=== PATIENT | female | born 1955 | race Two or more races ===

== ENCOUNTER 2020-08-28 12:12 | Outpatient (REF) | payer MEDICARE, MEDICAID, SELFPAY ==
--- NOTE | 2020-08-28 | XR_ITS ---
EXAMINATION: XR SHOULDER, LEFT CLINICAL INFORMATION: Left shoulder pain COMPARISON: None TECHNIQUE: 4 views of the left shoulder FINDINGS: Normal alignment with no fracture. Mild glenohumeral and acromioclavicular osteoarthritis. No suspicious bone lesion or soft tissue calcification. IMPRESSION: Mild acromioclavicular and glenohumeral osteoarthritis.
== END 2020-08-28 12:13 | disposition home or self-care (01) ==
LOC: HO.XRAY 12:12
PROVIDERS: PCP Internal Medicine Geriatric Medicine; Visit Provider Emergency Medicine
DX: M25.512 Pain in left shoulder (principal)
CPT/HCPCS: 73030

== ENCOUNTER → 2020-09-02 14:56 | Outpatient (BNVA) | payer MEDICARE, MEDICAID, SELFPAY | PROVIDERS: PCP Internal Medicine Geriatric Medicine; Visit Provider Surgery Vascular Surgery | DX: I87.2 Venous insufficiency (chronic) (peripheral) (principal); I83.11 Varicose veins of right lower extremity with inflammation | CPT/HCPCS: 99213 ==

== ENCOUNTER → 2020-09-04 12:40 | Outpatient (BNVA) | payer MEDICARE, MEDICAID, SELFPAY | PROVIDERS: PCP Internal Medicine Geriatric Medicine; Referring Provider Internal Medicine Geriatric Medicine; Visit Provider Physician Assistant | DX: E66.9 Obesity, unspecified (principal); Z68.30 Body mass index [BMI] 30.0-30.9, adult; K90.49 Malabsorption due to intolerance, not elsewhere classified; Z98.84 Bariatric surgery status | CPT/HCPCS: 99214 ==

== ENCOUNTER → 2020-09-18 12:00 | Outpatient (BNVA) | payer MEDICARE, MEDICAID, SELFPAY | PROVIDERS: PCP Internal Medicine Geriatric Medicine; Referring Provider Internal Medicine Geriatric Medicine; Visit Provider Nurse Practitioner | DX: K21.9 Gastro-esophageal reflux disease without esophagitis (principal); R13.10 Dysphagia, unspecified; K59.04 Chronic idiopathic constipation; Z98.84 Bariatric surgery status; Z90.49 Acquired absence of other specified parts of digestive tract | CPT/HCPCS: 99214 ==

== ENCOUNTER 2020-09-23 12:39 | Outpatient (REF) | payer MEDICARE, MEDICAID, SELFPAY ==
--- NOTE | 2020-09-23 12:40 | XR_ITS ---
EXAMINATION: XR HIP, LEFT CLINICAL INFORMATION: Pain in left hip. COMPARISON: None TECHNIQUE: Two views of the left hip. FINDINGS: AP PELVIS: There is a normal symmetry of both hip joints and SI joints. There is hardware overlying both iliac crests. There is lower spine fusion with posterior hardware. LEFT HIP: The left hip joint space is maintained. There is no visible acute fracture, dislocation or subluxation seen. The soft tissues are normal.. XR/XR hip LT w PEL1V IMPRESSION: Unremarkable left hip exam. Unremarkable AP pelvis.
[2020-09-23 15:28] LABS: MANUAL DIFF FLAG NO
[2020-09-23 15:41] LABS: Basophils Percent Auto 0.5 % (0-2); Eosinophils Absolute Auto 0.1 X10*3/uL (0.0-0.4); Eosinophils Percent Auto 1.2 % (0-4); Hematocrit 39.8 % (37-47); Hemoglobin 12.5 g/dl (12.0-16.0); Imm Gran Abs Auto 0.01 X10*3/uL (0.00-0.03); Imm Gran Pct Auto 0.2 % (0.0-0.4); Lymphocytes Absolute Auto 1.6 X10*3/uL (1.2-4.9); Mean Corpuscular HGB Conc 31.4 g/dl (31.0-35.0); Mean Corpuscular Hemoglobin 26.9 pg (27.0-33.0); Mean Corpuscular Volume 85.6 fL (80-98); Mean Platelet Volume 11.8 fL (9.4-12.3); Monocytes Absolute Auto 0.4 X10*3/uL (0.1-1.2); Monocytes Percent Auto 10.7 % (2-11); Neutrophils Absolute Auto 1.9 X10*3/uL (2.0-8.3); Neutrophils Percent Auto 47.4 % (45-73); Platelet Count 202 X10*3/uL (160-400); Red Blood Count 4.65 X10*6/uL (4.20-5.50); Red Cell Distribution Width 13.2 % (11.0-16.0); White Blood Count 4.1 X10*3/uL (4.8-10.8)
[2020-09-23 16:03] LABS: Estimated Average Glucose 123 mg/dL; Hemoglobin A1c % 5.9 %
[2020-09-23 16:14] LABS: Alanine Aminotransferase 24 U/L (0-31); Albumin Level 4.1 g/dL (3.5-5.0); Alkaline Phosphatase 74 U/L (39-117); Anion Gap 12 (12-20); Aspartate Amino Transferase 20 U/L (5-31); Bilirubin Total 0.4 mg/dL (0.0-1.0); Blood Urea Nitrogen 9 mg/dL (9-16); C Reactive Protein 0.05 mg/dL (< or = 0.50); Calcium 8.5 mg/dL (8.4-10.2); Carbon Dioxide 27 mmol/L (22-29); Chloride 106 mmol/L (96-108); Cholesterol 166 mg/dL; Estimated Glomerular Filt Rate > 60; Glucose Fasting 79 mg/dL (60-99); HDL Cholesterol 50 mg/dL; Iron 133 mcg/dL (30-160); LDL Cholesterol Calculated 94 mg/dl; Percent Iron Saturation 46 % (15-50); Potassium 4.4 mmol/l (3.3-5.1); Sodium 141 mmol/L (135-145); Total Iron Binding Capacity 287 mcg/dL (228-428); Total Protein 6.7 g/dL (6.5-8.0); Triglycerides 112 mg/dL; Unsaturated Iron Binding 154 ug/dL
[2020-09-23 16:34] LABS: Ferritin 61 ng/mL (10-250); TSH reflex Free T4 1.77 mIU/mL (0.32-4.0)
[2020-09-23 16:45] LABS: Folate 4.2 ng/mL (> or = 4.0); Vitamin B12 263 pg/mL (200-900)
[2020-09-27 18:06] LABS: Zinc 58 mcg/dL (60-130)
[2020-09-28 13:12] LABS: Vitamin B1 10 nmol/L (8-30)
[2020-09-29 14:06] LABS: Vitamin A 29 mcg/dL (38-98)
[2020-09-30 18:42] LABS: Parathyroid Hormone Related Pr 10 pg/mL (14-27)
== END 2020-09-23 12:40 | disposition home or self-care (01) ==
LOC: HO.XRAY 12:39
PROVIDERS: Absent Provider Physician Assistant; PCP Internal Medicine Geriatric Medicine; Visit Provider Orthopaedic Surgery
DX: M25.552 Pain in left hip (principal); K90.49 Malabsorption due to intolerance, not elsewhere classified
CPT/HCPCS: 36415; 73502; 80053; 80061; 82306; 82607; 82728; 82746; 83036; 83519; 83525; 83540; 84425; 84443; 84590; 84630; 85025; 86140

== ENCOUNTER → 2020-10-16 14:21 | Outpatient (BNVA) | payer MEDICARE, MEDICAID, SELFPAY | PROVIDERS: PCP Internal Medicine Geriatric Medicine; Visit Provider Nurse Practitioner | DX: K21.9 Gastro-esophageal reflux disease without esophagitis (principal); R13.10 Dysphagia, unspecified; K58.1 Irritable bowel syndrome with constipation; K59.04 Chronic idiopathic constipation; Z87.19 Personal history of other diseases of the digestive system; Z90.49 Acquired absence of other specified parts of digestive tract | CPT/HCPCS: Q3014 ==

== ENCOUNTER → 2020-10-22 08:40 | Outpatient (BNVA) | payer MEDICARE, MEDICAID, SELFPAY | PROVIDERS: PCP Internal Medicine Geriatric Medicine; Visit Provider Dietitian, Registered | DX: Z76.89 Persons encountering health services in other specified circumstances (principal) ==

== ENCOUNTER 2020-10-22 15:00 | Outpatient (RCR) | payer MEDICARE, MEDICAID, SELFPAY ==
--- NOTE | 2020-10-09 16:01 | MHC.PT.EP ---
[facility] [place] Office [place] Office [place] Office [address] Beau You [address] [phone] F: [phone] F: [phone] F: [phone] F: [phone] Physical Therapy Plan of Care Date of Evaluation: 10/09/20 Date of Surgery: N/A Diagnosis: IMPINGEMENT SYNDROME OF LEFT SHOULDER Assessment: TRIPP PRESENTS WITH INCREASING SHOULDER PAIN OF ONE MONTH DURATION. UPON EXAM, IMPAIRMENTS INCLUDE DECREASED CERVICAL AND SHOULDER STRENGTH, ALTERED SCAPULOTHORACIC MECHANICS, DECREASED CERVICAL AND SHOULDER ROM, INCREASED TISSUE TENSION ALONG UPPER AND MID TRAPS, CERVICAL PARAVERTEBRALS, SCM AND SCALENES, ALTERED POSTURE AND POSITIONING AND INCREASED PAIN THROUGHOUT NECK, SHOULDER AND UPPER BACK STRENGTH. FUNCTIONAL LIMITATIONS INCLUDE DECREASED ABILITY TO PERFORM LIFTING, PUSHING, PULLING AND REACHING, DECREASED ABILITY TO PERFORM HOMEMAKING AND SELF CARE TASKS, DECREASED PARTICPATION IN FITNESS AND RECREATIONAL TASKS AND DISRUPTED SLEEP. CO-MORBIDIES INCLUDE NECK AND LUMBAR SURGERIES (CDF/LDF?), BLADDER SURGERY, BARIATRIC SURGERY WITH RESULTANT GI DYSFUNCTION. SHE LIVES ALONE AND DOES NOT HAVE ASSIST FOR ADLs AND HOMEMAKING TASKS. SHE IS A GOOD CANDIDATE FOR SKILLED THERAPY TO ADDRESS IMPAIRMENTS AND IMPROVE FUNCTIONAL LEVELS. Frequency and Duration: The patient will be seen 2 X WEEK FOR 6 WEEKS Short Term Goals: FULL CERVICAL ROM AND ABLE TO TOLERATE MOD RESISTANCE IN NEUTRAL IN 3 WEEKS TO DEMONSTRATE COMPLIANCE WITH HEP AND PT RECOMMENDATIONS IN 3 WEEKS TO ACTIVELY ELEVATE SHOULDER TO AT MINIMUM 90 DEGREES IN 3 WEEKS Topography Technician Goals: TO TOLERATE SHOULDER ELEVATION WITH PAIN NO GREATER THAN 3/10 WHILE PLACING LIGHT OBJECT ON SHELF AT SHOULDER HEIGHT TO REPORT WASHING AND BRUSHING HAIR WITHOUT RESTRICTION AND PAIN NO GREATER THAN 3/10 IN 6 WEEKS TO REPORT THE ABILITY TO SLEEP WITHOUT DISRUPTION FROM SHOULDER PAIN IN 6 WEEKS SPADI SCORE OF LESS THAN 60% DISABILITY IN 6 WEEKS Treatment Plan: Modalities to reduce pain, spasms and effusion. Manual therapy to restore motion and function. Therapeutic exercise to improve strength and flexibility. Neuromuscular re-education for posture and balance. Therapeutic activities to return to functional activities of daily living. Please sign and return to therapist. Thank you for your referral.
--- NOTE | 2020-12-09 14:39 | MHC.PT.DC ---
[facility] [place] Office [place] Office [place] Office [address] [phone] F: [phone] F: [phone] F: [phone] F: [phone] Physical Therapy Discharge Report Diagnosis: IMPINGEMENT SYNDROME OF LEFT SHOULDER Date of Surgery: N/A Date of Evaluation: 10/09/20 Date of Discharge: 10/22/20 Treatments to Date: 2 Cancellations to Date: 4 No Shows to Date: 2 Discharge Status: Patient Elected to Stop Discharge Summary: TRIPP ATTENDED 2 PT VISITS, CANCELLED 4 AND NO SHOWED FOR 2. SHE HAS NOT BEEN SEEN IN PT FOR 2 MONTHS AND IS BEING DISCHARGED AT THIS TIME. Electronically signed by: ISATU MORALES PT, DPT Please sign and return to therapist. Thank you for your referral.
== END 2020-12-09 14:58 | disposition other institution (70) ==
LOC: HO.PT 15:00
PROVIDERS: PCP Internal Medicine Geriatric Medicine; Visit Provider Orthopaedic Surgery
DX: M75.42 Impingement syndrome of left shoulder (principal)
CPT/HCPCS: 97110; 97112; 97163; 97535

== ENCOUNTER → 2020-10-30 10:04 | Outpatient (BNVA) | payer MEDICARE, MEDICAID, SELFPAY | PROVIDERS: PCP Internal Medicine Geriatric Medicine; Referring Provider Internal Medicine Geriatric Medicine; Visit Provider Internal Medicine Pulmonary Disease | DX: J45.40 Moderate persistent asthma, uncomplicated (principal); Z91.09 Other allergy status, other than to drugs and biological substances | CPT/HCPCS: 99212 ==

== ENCOUNTER → 2020-11-06 13:50 | Outpatient (BNVA) | payer MEDICARE, MEDICAID, SELFPAY | PROVIDERS: PCP Internal Medicine Geriatric Medicine; Referring Provider Internal Medicine Geriatric Medicine; Visit Provider Nurse Practitioner | DX: R13.10 Dysphagia, unspecified (principal); K59.04 Chronic idiopathic constipation; K21.9 Gastro-esophageal reflux disease without esophagitis | CPT/HCPCS: Q3014 ==

== ENCOUNTER → 2020-12-12 13:00 | Outpatient (BNV) | payer MEDICARE, OTHER, MEDICAID, SELFPAY | PROVIDERS: PCP Internal Medicine Geriatric Medicine; Visit Provider Internal Medicine | DX: D64.9 Anemia, unspecified (principal) | CPT/HCPCS: 99212; 99213; 99214 ==

== ENCOUNTER 2021-04-23 14:27 | Outpatient (REF) | payer MEDICARE, MEDICAID, SELFPAY ==
--- NOTE | ~2021-04-23 | MM_ITS ---
EXAMINATION: MM SCREENING DIGITAL BREAST TOMOSYNTHESIS, BILATERAL CLINICAL INFORMATION: Screening. Asymptomatic. The lifetime risk of breast cancer based on the Tyrer-Cuzick Model is 3.0%. COMPARISON: Mammography: February 12, 2020 and studies dating back to February 11, 2006 TECHNIQUE: Digital breast tomosynthesis is performed in both the craniocaudal and mediolateral oblique views along with computer-aided detection (CAD). Synthesized 2D images are generated from the tomosynthesis. FINDINGS: The breasts are heterogeneously dense, which may obscure small masses (ACR BI-RADS breast composition Category c). There are no significant masses, abnormal calcifications, or other abnormalities. MM/MM tomosynthesis screening BI IMPRESSION: There are no significant changes from prior study. ASSESSMENT: BI-RADS 1: Negative RECOMMENDATION: Routine annual mammography screening. This patient's information was entered into a reminder system with a target due date for their next mammogram.
== END 2021-04-23 14:28 | disposition home or self-care (01) ==
LOC: HO.MAMMO 14:27
PROVIDERS: Visit Provider Internal Medicine Geriatric Medicine
DX: Z12.31 Encounter for screening mammogram for malignant neoplasm of breast (principal)
CPT/HCPCS: 77063; 77067

== ENCOUNTER → 2021-08-21 09:54 | Outpatient (BNVA) | payer MEDICARE, MEDICAID, SELFPAY | PROVIDERS: PCP Internal Medicine Geriatric Medicine; Visit Provider Internal Medicine Pulmonary Disease | DX: Z91.09 Other allergy status, other than to drugs and biological substances (principal); J45.40 Moderate persistent asthma, uncomplicated | CPT/HCPCS: 99212 ==

== ENCOUNTER → 2021-09-16 09:22 | Outpatient (BNVA) | payer MEDICARE, MEDICAID, SELFPAY | PROVIDERS: PCP Internal Medicine Geriatric Medicine; Visit Provider Internal Medicine Pulmonary Disease ==

== ENCOUNTER 2022-02-22 12:10 | Day surgery (SDC) | payer MEDICARE, MEDICAID, SELFPAY ==
--- NOTE | 2022-02-18 15:11 | HO.ANESPROP2 ---
Documented by User: Courtney Youngblood NP 02/18/22 15:12 HPI - Anesthesia Eval Consult details Narrative: 66yo F for Upper Endoscopy with Balloon Dilitation PMFSH Active Problems Active Problems: All Active Problems (Updated 12/12/20 @ 14:14 by Renee Boyd MD) Anemia (Chronic) Environmental allergies (Acute) Moderate persistent asthma (Acute) Rotator cuff impingement syndrome of left shoulder (Acute) Trochanteric bursitis, left hip (Acute) Dysphagia (Acute) Chronic idiopathic constipation (Acute) GERD (gastroesophageal reflux disease) (Acute) Varicose veins of right lower extremity with inflammation (Acute) Obesity (Acute) Depression (Acute) Anxiety (Acute) IBS (irritable bowel syndrome) (Acute) Past Medical History Medical History Anemia Anxiety Depression Dysphagia Environmental allergies GERD (gastroesophageal reflux disease) Herniated disc IBS (irritable bowel syndrome) LUQ abdominal tenderness Malabsorption due to intolerance, not elsewhere classified Moderate persistent asthma Family History Family History Father Alcohol abuse Cancer Diabetes Mother Colon cancer Liver cancer Diabetes Brother Cancer Surgical History Surgical History H/O colonoscopy H/O laminectomy H/O neck surgery History of back surgery History of bladder surgery History of bunionectomy History of partial hysterectomy History of Rebecca-en-Y gastric bypass Hx laparoscopic cholecystectomy Hx of hammer toe correction Hx of hernia repair S/P rotator cuff repair Social History Social History Household Members Other:: grandchildren and daughter Alcohol intake: current Alcohol intake frequency: does not drink Patient Tobacco Use Status: Former Tobacco user Quit Date: 45 YEARS AGO Are you DNR?: No Advance Directives: No Advance Directives Information Provided: Yes Current occupational status: retired Current occupation: [employer] Meds Allergies Allergy/AdvReac Type Severity Reaction Status Date / Time vancomycin [VANCOMYCIN] Allergy Intermediate FACIAL Verified 02/22/22 12:46 FLUSHING/ITCHING trazodone [TRAZODONE] Allergy Unknown PER H&P Verified 02/22/22 12:46 Home Medications Medication Instructions Recorded Confirmed Last Taken Type bisacodyl 5 mg tablet,delayed 10 mg PO BID PRN 08/28/20 12/14/21 Unknown History release bupropion HCl 300 mg 24 hr tablet, 300 mg PO QAM 08/28/20 12/14/21 Unknown History extended release calcium carbonate 600 mg-vitamin 1 tab PO DAILY 08/28/20 12/14/21 Unknown History D3 20 mcg (800 unit) tablet clonazepam 1 mg tablet 1 mg PO BID 08/28/20 12/14/21 Unknown History levothyroxine 25 mcg tablet 25 mcg PO DAILY 08/28/20 12/14/21 Unknown History melatonin 5 mg tablet 5 mg PO BEDTIME 08/28/20 12/14/21 Unknown History metoclopramide HCl 5 mg tablet 5 mg PO DAILY 08/28/20 12/14/21 Unknown History mirtazapine 30 mg tablet 30 mg PO BEDTIME 08/28/20 12/14/21 Unknown History sennosides 8.6 mg tablet 17.2 mg PO BEDTIME PRN 08/28/20 12/14/21 Unknown History simethicone 180 mg capsule 180 mg PO QID PRN 08/28/20 12/14/21 Unknown History tramadol 50 mg tablet 50 mg PO TID PRN 08/28/20 12/14/21 Unknown History vitamin A 10,000 unit capsule 1 cap PO DAILY 08/28/20 12/14/21 Unknown History gabapentin 800 mg tablet 800 mg PO TID PRN 09/02/20 12/14/21 Unknown History vitamin [id number] B1 1,000 1 ml IM Q4W 09/04/20 12/14/21 Unknown History mcg-100 mg/mL injection solution Exam Exam Date and Time: February 18, 2022 1511 Pertinent Lab Results Pertinent Lab Results: Laboratory Tests 12/14/21 13:28 WBC 4.3 L Hgb 12.4 Hct 39.3 Plt Count 173 Assessment and Plan Assessment Anesthesia Assessment: Chart Reviewed Documented by User: Liss Morfin MD 02/22/22 13:59 PMFSH Past Medical History Medical History Anemia Anxiety Depression Dysphagia Environmental allergies GERD (gastroesophageal reflux disease) Herniated disc IBS (irritable bowel syndrome) LUQ abdominal tenderness Malabsorption due to intolerance, not elsewhere classified Moderate persistent asthma Family History Family History Father Alcohol abuse Cancer Diabetes Mother Colon cancer Liver cancer Diabetes Brother Cancer Family history of problems with anesthesia: No Surgical History Surgical History H/O colonoscopy H/O laminectomy H/O neck surgery History of back surgery History of bladder surgery History of bunionectomy History of partial hysterectomy History of Rebecca-en-Y gastric bypass Hx laparoscopic cholecystectomy Hx of hammer toe correction Hx of hernia repair S/P rotator cuff repair History of Problems with Anesthesia: No Social History Social History Household Members Other:: grandchildren and daughter Alcohol intake: current Alcohol intake frequency: does not drink Patient Tobacco Use Status: Former Tobacco user Quit Date: 45 YEARS AGO Are you DNR?: No Advance Directives: No Advance Directives Information Provided: Yes Current occupational status: retired Current occupation: [employer] Meds Allergies Allergy/AdvReac Type Severity Reaction Status Date / Time vancomycin [VANCOMYCIN] Allergy Intermediate FACIAL Verified 02/22/22 12:46 FLUSHING/ITCHING trazodone [TRAZODONE] Allergy Unknown PER H&P Verified 02/22/22 12:46 Home Medications Medication Instructions Recorded Confirmed Last Taken Type bisacodyl 5 mg tablet,delayed 10 mg PO BID PRN 08/28/20 12/14/21 Unknown History release bupropion HCl 300 mg 24 hr tablet, 300 mg PO QAM 08/28/20 12/14/21 Unknown History extended release calcium carbonate 600 mg-vitamin 1 tab PO DAILY 08/28/20 12/14/21 Unknown History D3 20 mcg (800 unit) tablet clonazepam 1 mg tablet 1 mg PO BID 08/28/20 12/14/21 Unknown History levothyroxine 25 mcg tablet 25 mcg PO DAILY 08/28/20 12/14/21 Unknown History melatonin 5 mg tablet 5 mg PO BEDTIME 08/28/20 12/14/21 Unknown History metoclopramide HCl 5 mg tablet 5 mg PO DAILY 08/28/20 12/14/21 Unknown History mirtazapine 30 mg tablet 30 mg PO BEDTIME 08/28/20 12/14/21 Unknown History sennosides 8.6 mg tablet 17.2 mg PO BEDTIME PRN 08/28/20 12/14/21 Unknown History simethicone 180 mg capsule 180 mg PO QID PRN 08/28/20 12/14/21 Unknown History tramadol 50 mg tablet 50 mg PO TID PRN 08/28/20 12/14/21 Unknown History vitamin A 10,000 unit capsule 1 cap PO DAILY 08/28/20 12/14/21 Unknown History gabapentin 800 mg tablet 800 mg PO TID PRN 09/02/20 12/14/21 Unknown History vitamin [id number] B1 1,000 1 ml IM Q4W 09/04/20 12/14/21 Unknown History mcg-100 mg/mL injection solution Exam Airway Mallampati Class: II TM Dist: >3cm Neck ROM: Full Denture: Upper Partial: Lower Assessment and Plan Assessment Anesthesia Assessment: Anesthesia Plan Discussed Final Anesthetic Review Family History of Problems with Anesthesia: No History of Problems with Anesthesia: No NPO: Yes ASA Class: II Final Preanesthetic Review: No Changes in Pt Med Stat, Meds/Allgs Chart Reviewed, Consent Obtained/Reviewed and Anes Risks/Benef Reviewed Patient Risk: Intermediate Procedure Risk: Low Anesthetic Plan Anesthetic Plan: MAC: Disposition: Standard PACU
[2022-02-22 13:37] VITALS: BP 134/66; PULSE 55; RESP 18; TEMP 36.6; O2SAT 98
[2022-02-22 13:39] VITALS: BMI 30.5
[2022-02-22] MEDS: Lactated Ringers 1,000 ML 100 ML IVCONT (13:42)
[2022-02-22 16:22] VITALS: BP 106/57; PULSE 75; RESP 16; TEMP 36.6; O2SAT 98
--- NOTE | 2022-02-22 16:33 | P.BOP_ITS ---
Brief Operative Note Date of Service: 02/22/22 Pre-op diagnosis: Dysphagia, GERD Post-op diagnosis: other (Small hiatal hernia, GERD) Procedure: EGD with biopsies Surgeon: Sebastián Jorge Anesthesia: MAC Was an Manager [employer] used for this Procedure?: No Estimated blood loss (mL): 2.0 Pathology: other (A. EG Junction at 32cm) Condition: stable Disposition: PACU
[2022-02-22 16:37] VITALS: BP 149/79; PULSE 65; RESP 16; TEMP 36.6; O2SAT 97
--- NOTE | 2022-02-23 02:25 | OP_ITS ---
SURGEON: Sebastián Jorge MD INDICATIONS: The patient presents for evaluation of gastroesophageal reflux, dysphagia, and abnormal upper GI series. Full consent has been obtained from her for this, including risks of bleeding and perforation. PREOPERATIVE DIAGNOSIS: POSTOPERATIVE DIAGNOSIS: PROCEDURE PERFORMED: Upper endoscopy with biopsies. ESTIMATED BLOOD LOSS: COMPLICATIONS: ANESTHESIA: Monitored anesthesia care. ASSISTANTS: SPECIMENS: PREOPERATIVE DIAGNOSES: Dysphagia, gastroesophageal reflux, and abnormal upper GI series. POSTOPERATIVE DIAGNOSES: Dysphagia, gastroesophageal reflux, and abnormal upper GI series, small hiatal hernia, normal-appearing esophagus, gastric anatomy consistent with her previous gastric bypass. DESCRIPTION OF PROCEDURE: The patient was placed in the left lateral decubitus position. The Olympus video gastroscope was passed in the posterior oropharynx and upper esophagus under direct vision. The scope was passed slowly to the distal esophagus. The gastroesophageal junction appeared at 32 cm. There was some very minimal irregularity consistent with reflux but no evidence of any esophagitis nor Tinajero mucosa. The scope entered the stomach. There was a small hiatal hernia. Almost immediately beneath the hiatal hernia was anatomy consistent with her previous gastric bypass. The anastomosis appeared normal without any ulceration nor stricture. The small bowel was easily cannulated and appeared normal. The scope was withdrawn back in the small gastric remnant. Again, the anastomosis appeared normal. I was unable to retroflex given her anatomy. However, the small gastric remnant mucosa appeared normal. The scope was then withdrawn back into the esophagus. I did obtain biopsies of the EG junction at 32 cm. The entire esophagus was carefully inspected multiple times and I did not appreciate any diverticulum nor any other mucosal abnormality. In reading the barium swallow report, it describes a left lateral broad-based outpouching of the distal esophagus in which a 13 mm barium tablet was retained. Therefore, I wonder if the area described on the barium swallow was perhaps the very distal esophagus and area of hiatal hernia. In any event, I did not visualize any sign of esophageal diverticulum nor esophageal stricture. Dilation was not performed. The scope was then withdrawn from the patient. She tolerated the procedure well and was returned to recovery area in stable condition. IMPRESSION: 1. Small hiatal hernia, minimal changes of reflux. Otherwise, normal upper endoscopy. 2. Normal anatomy consistent with previous gastric bypass. PLAN: The results of the biopsy will be checked. If she continues to have significant swallowing issues, we may need to proceed with esophageal motility studies. She will be followed up in the office. MD LYLE Laura/VANNESSA / [phone] MTDAndree
== END 2022-02-22 16:55 | disposition home or self-care (01) ==
PROVIDERS: PCP Internal Medicine Geriatric Medicine; Visit Provider Internal Medicine
PROC: (CPT 43239; principal; 2022-02-22 14:00)
DX: R13.19 Other dysphagia (principal); R93.3 Abnormal findings on diagnostic imaging of other parts of digestive tract; K21.9 Gastro-esophageal reflux disease without esophagitis; K44.9 Diaphragmatic hernia without obstruction or gangrene; G47.30 Sleep apnea, unspecified; J45.30 Mild persistent asthma, uncomplicated; Q39.6 Congenital diverticulum of esophagus; Z79.51 Long term (current) use of inhaled steroids; Z79.899 Other long term (current) drug therapy; Z88.0 Allergy status to penicillin; Z87.891 Personal history of nicotine dependence; Z98.84 Bariatric surgery status; Z98.0 Intestinal bypass and anastomosis status
CPT/HCPCS: 43239; 88305

== ENCOUNTER 2022-04-05 07:20 | Outpatient (REF) | payer OTHER, MEDICARE, MEDICAID, SELFPAY ==
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
== END 2022-04-05 07:21 | disposition home or self-care (01) ==
LOC: HO.CT 07:20
PROVIDERS: PCP Internal Medicine Geriatric Medicine; Visit Provider Internal Medicine
DX: S09.90XS Unspecified injury of head, sequela (principal); V89.2XXD Person injured in unspecified motor-vehicle accident, traffic, subsequent encounter
CPT/HCPCS: 70450

== ENCOUNTER → 2022-05-05 13:13 | Outpatient (BNVA) | payer MEDICARE, MEDICAID, SELFPAY | PROVIDERS: PCP Internal Medicine Geriatric Medicine; Referring Provider Internal Medicine Geriatric Medicine; Visit Provider Nurse Practitioner Family | DX: R07.89 Other chest pain (principal); E66.9 Obesity, unspecified; Z68.25 Body mass index [BMI] 25.0-25.9, adult | CPT/HCPCS: 93005; 99212; Q3014 ==

== ENCOUNTER → 2022-06-15 09:21 | Outpatient (REF) | payer MEDICARE, MEDICAID, SELFPAY ==
--- NOTE | ~2022-06-15 | NM_ITS ---
Myocardial perfusion study Indication: Chest pain to evaluate for myocardial ischemia Technique: The patient was brought in for a Lexiscan perfusion study on 06/15/2022. Patient performed low-level exercise and was injected 0.4 mg of Lexiscan intravenously. Within a minute of injection, 25 mCi of sestamibi was given intravenously. Images were obtained using the SPECT gamma camera interlaced with the gating device. Images were obtained in supine position. Resting perfusion study was performed on 06/17/2022. Patient was administered 25 mCi of sestamibi intravenously at rest. Images were then obtained in supine position. Images obtained with and without CT attenuation. Total DLP 85 mGy-cm. Images were processed with the software and compared side to side in short axis, horizontal long axis and vertical long axis views. Findings: The stress perfusion study showed non attenuated images show mildly reduced uptake in the apex of the LV myocardium. Remainder of the LV myocardium is normally perfused. Attenuation corrected images also show mildly reduced uptake in the apex of the LV myocardium.. The gated study shows normal LV systolic function with calculated LVEF of 57%. LV cavity is mildly dilated size. The gated study shows normal systolic wall thickening and contraction of segments. Resting study shows no change in perfusion pattern compared to stress perfusion study. Gating at rest reveals normal systolic wall motion with ejection fraction at 66%. The findings are consistent with normal myocardial perfusion. NM/NM cardiolite stress test Impression: 1. Myocardial perfusion imaging study shows normal myocardial perfusion 2. Gated LVEF is 57% 3. Transient ischemic dilatation not present but LV cavity appears to be mildly dilated EKG is nondiagnostic for ischemia
--- NOTE | 2022-06-15 09:24 | CA_ITS ---
Acquisition Time: 2022-06-15 09:58:30 Total Exercise Time: 00:02:00 Test Indications: Chest Pain Medications: Protocol: LEXISCAN Max HR: 118 BPM 76% of Pred: 155 BPM Max BP: 154/082 mmHG Max Work Load: 1.0 METS Pharmacological stress test with Lexiscan injection, while sitting and kicking her legs, without anginal symptoms, with isolated PAC, with normotensive response to injection, with nondiagnostic EKG for ischemia. In recovery she reported lightheadedness and weakenss that was treated with Aminophylline 75mg IVP to reverse lexiscan with slow gradual resolution of symptoms. Due to generalized weakness, a random glucose was checked: 103. After 13 min recovery she reported feeling better and was able to stand without symptoms. Nuclear images pending. Test reviewed with Dr Steel. Referred By: Maricruz Baumann Overread By: MARICRUZ BAUMANN
[2022-06-15 10:48] LABS: Glucose, Whole Blood 103 mg/dL (60-115)
== END ==
LOC: HO.CARD 09:21
PROVIDERS: PCP Internal Medicine Geriatric Medicine; Visit Provider Nurse Practitioner Family
DX: R07.89 Other chest pain (principal); M70.62 Trochanteric bursitis, left hip; R53.1 Weakness; R53.83 Other fatigue
CPT/HCPCS: 78452; 82947; 93017; A9500; J0280; J2785

== ENCOUNTER → 2022-06-24 12:22 | Outpatient (BNVA) | payer MEDICARE, MEDICAID, SELFPAY | PROVIDERS: PCP Internal Medicine Geriatric Medicine; Referring Provider Internal Medicine Geriatric Medicine; Visit Provider Nurse Practitioner Family | DX: R07.89 Other chest pain (principal); E66.9 Obesity, unspecified; Z68.25 Body mass index [BMI] 25.0-25.9, adult | CPT/HCPCS: 99212 ==

== ENCOUNTER 2022-07-15 12:34 | Outpatient (REF) | payer MEDICARE, MEDICAID, SELFPAY ==
[2022-07-15 14:13] LABS: Anion Gap 13 (12-20); Blood Urea Nitrogen 10 mg/dL (9-16); Calcium 9.1 mg/dL (8.4-10.2); Carbon Dioxide 31 mmol/L (22-29); Chloride 102 mmol/L (96-108); Estimated Glomerular Filt Rate > 60; Glucose Random 83 mg/dL (60-115); Potassium 4.8 mmol/L (3.3-5.1); Sodium 141 mmol/L (135-145)
== END 2022-07-15 12:35 | disposition home or self-care (01) ==
LOC: HO.LAB 12:34
PROVIDERS: PCP Internal Medicine Geriatric Medicine; Visit Provider Nurse Practitioner Family
DX: I20.8 Other forms of angina pectoris (principal)
CPT/HCPCS: 36415; 80048

== ENCOUNTER 2022-09-14 14:55 | Outpatient (REF) | payer MEDICARE, MEDICAID, SELFPAY ==
--- NOTE | ~2022-09-14 | MM_ITS ---
EXAMINATION: MM SCREENING DIGITAL BREAST TOMOSYNTHESIS, BILATERAL CLINICAL INFORMATION: Screening. Asymptomatic. The lifetime risk of breast cancer based on the Tyrer-Cuzick Model is 2%. COMPARISON: Mammography: 04/23/2021, 02/12/2020, outside mammography 08/12/2008 ([facility] TECHNIQUE: Digital breast tomosynthesis is performed in both the craniocaudal and mediolateral oblique views along with computer-aided detection (CAD). Synthesized 2D images are generated from the tomosynthesis. FINDINGS: There are scattered areas of fibroglandular density (ACR BI-RADS breast composition Category b). Parenchymal pattern is similar to prior exams. There are no significant masses, abnormal calcifications, or other abnormalities. There are scattered bilateral stable asymmetries similar to prior studies. No developing density or interval architectural abnormality. The axilla and skin contours are unremarkable. MM/MM tomosynthesis screening BI IMPRESSION: No mammographic evidence of malignancy. ASSESSMENT: BI-RADS 2: Benign RECOMMENDATION: Routine annual mammography screening. This patient's information was entered into a reminder system with a target due date for their next mammogram.
== END 2022-09-14 14:56 | disposition home or self-care (01) ==
LOC: HO.MAMMO 14:55
PROVIDERS: PCP Internal Medicine Geriatric Medicine; Visit Provider Internal Medicine Geriatric Medicine
DX: Z12.31 Encounter for screening mammogram for malignant neoplasm of breast (principal)
CPT/HCPCS: 77063; 77067

== ENCOUNTER → 2022-09-21 12:20 | Outpatient (BNVA) | payer MEDICARE, MEDICAID, SELFPAY | PROVIDERS: PCP Internal Medicine Geriatric Medicine; Referring Provider Internal Medicine Geriatric Medicine; Visit Provider Nurse Practitioner Family | DX: R07.89 Other chest pain (principal) | CPT/HCPCS: 99212 ==

== ENCOUNTER 2022-12-10 14:46 | Outpatient (REF) | payer MEDICARE, MEDICAID, SELFPAY ==
--- NOTE | ~2022-12-10 | US_ITS ---
EXAMINATION: US VENOUS ULTRASOUND WITH DOPPLER LOWER EXTREMITY, RIGHT CLINICAL INFORMATION: Right lower extremity swelling. COMPARISON: Right lower extremity venous DVT study dated 02/05/2019. TECHNIQUE: Ultrasound of the deep veins is performed from the hip to the calf with compression sonography and color and pulse Doppler assessment. Spectral analysis with color-flow imaging is performed. FINDINGS: There is normal venous compression and respiratory variation and augmented flow. The visualized common femoral vein, superficial femoral vein, profunda femoral vein, popliteal vein, and the trifurcation region shows no evidence of deep venous thrombosis. No right popliteal cyst. The subcutaneous soft tissues are unremarkable. US/US venous duplex LE RT IMPRESSION: No evidence for deep venous thrombosis in the visualized veins of the right lower extremity.
== END 2022-12-10 14:47 | disposition home or self-care (01) ==
LOC: HO.US 14:46
PROVIDERS: PCP Internal Medicine Geriatric Medicine; Visit Provider Nurse Practitioner Primary Care
DX: M79.89 Other specified soft tissue disorders (principal); M79.671 Pain in right foot
CPT/HCPCS: 93971

== ENCOUNTER → 2023-01-18 14:28 | Outpatient (BNVA) | payer MEDICARE, MEDICAID, SELFPAY | PROVIDERS: PCP Internal Medicine Geriatric Medicine; Visit Provider Surgery Vascular Surgery | DX: I83.11 Varicose veins of right lower extremity with inflammation (principal) | CPT/HCPCS: 99212 ==

== ENCOUNTER 2023-02-03 12:04 | Outpatient (REF) | payer MEDICARE, MEDICAID, SELFPAY ==
--- NOTE | ~2023-02-03 | US_ITS ---
EXAMINATION: US LOWER EXTREMITY VENOUS (REFLUX EXAM), BILATERAL CLINICAL INDICATION: Chronic venous insufficiency with lower extremity varicose veins, pain and inflammation COMPARISON: Ultrasound from 07/24/2020 TECHNIQUE: Color flow triplex imaging and compression Doppler was performed to evaluate both the deep and the superficial systems bilaterally. To evaluate the superficial system, the examination was performed in the upright position. Color-flow Doppler ultrasound and compression ultrasound were utilized. In addition, maneuvers were utilized to demonstrate reflux. FINDINGS: 1. DEEP VENOUS ULTRASOUND OF THE RIGHT LOWER EXTREMITY: Common Femoral Vein: Compressible, normal respiratory variation and augmented flow. Femoral Vein: Compressible, normal color flow and augmentation. Popliteal Vein: Compressible, normal augmentation. Deep Reflux: There is no evidence of reflux in the deep system in either the common femoral vein or the popliteal vein. There is no evidence of a Adorno's cyst. 2. SUPERFICIAL ULTRASOUND WITH DOPPLER OF RIGHT LOWER EXTREMITY: GREAT SAPHENOUS VEIN: Saphenofemoral Junction: 0.4 cm; Reflux: 0 ms Proximal Thigh: 0.5 cm; Reflux: 0 ms Mid Thigh: 0.2 cm; Reflux: 0 ms Above Knee: 0.2 cm; Reflux: 0 ms At Knee: 0.2 cm; Reflux: 0 ms Below Knee: 0.2 cm; Reflux: 0 ms Mid Calf: 0.2 cm; Reflux: 0 ms Ankle: 0.3 cm; Reflux: 0 ms DUPLICATED MEDIAL GREAT SAPHENOUS VEIN: Diameter: None Imaged Reflux: NA DUPLICATED LATERAL GREAT SAPHENOUS VEIN: Diameter: 0.4 cm Reflux: None SMALL SAPHENOUS VEIN: Proximal: 0.3 cm; Reflux: 0 ms Distal: 0.4 cm; Reflux: 0 ms VEIN OF GIACOMINI: None Imaged. PERFORATORS: Location: None significant Size: NA Reflux: NA VARICOSITIES: Location: Mid thigh Size: 0.4 cm Reflux: None 3. DEEP VENOUS ULTRASOUND OF THE LEFT LOWER EXTREMITY: Common Femoral Vein: Compressible, normal respiratory variation and augmented flow. Femoral Vein: Compressible, normal color flow and augmentation. Popliteal Vein: Compressible, normal augmentation. Deep Reflux: There is no evidence of reflux in the deep system in either the common femoral vein or the popliteal vein. There is no evidence of a Adorno's cyst. 4. SUPERFICIAL ULTRASOUND WITH DOPPLER OF LEFT LOWER EXTREMITY: GREAT SAPHENOUS VEIN: Saphenofemoral Junction: 0.6 cm; Reflux: 0 ms Proximal Thigh: 0.4 cm; Reflux: 0 ms Mid Thigh: 0.2 cm; Reflux: 0 ms Above Knee: 0.3 cm; Reflux: 0 ms At Knee: 0.3 cm; Reflux: 0 ms Below Knee: 0.2 cm; Reflux: 0 ms Mid Calf: 0.2 cm; Reflux: 0 ms Ankle: 0.2 cm; Reflux: 0 ms DUPLICATED MEDIAL GREAT SAPHENOUS VEIN: Diameter: None Imaged Reflux: NA DUPLICATED LATERAL GREAT SAPHENOUS VEIN: Diameter: 0.4 cm Reflux: None SMALL SAPHENOUS VEIN: Proximal: 0.3 cm; Reflux: 2596 ms Distal: 0.2 cm; Reflux: 2776 ms VEIN OF GIACOMINI: None Imaged. PERFORATORS: Location: None significant Size: NA Reflux: NA VARICOSITIES: Location: Mid calf Size: 0.3 cm Reflux: None US/US venous duplex LE BI IMPRESSION: Right: No significant venous insufficiency or reflux in the great saphenous vein or small saphenous vein Left: Severe reflux in the left small saphenous vein. No significant reflux in the great saphenous vein
== END 2023-02-03 12:05 | disposition home or self-care (01) ==
LOC: HO.US 12:04
PROVIDERS: PCP Internal Medicine Geriatric Medicine; Visit Provider Surgery Vascular Surgery
DX: I83.893 Varicose veins of bilateral lower extremities with other complications (principal)
CPT/HCPCS: 93970

== ENCOUNTER → 2023-03-08 13:33 | Outpatient (BNVA) | payer MEDICARE, MEDICAID, SELFPAY | PROVIDERS: PCP Internal Medicine Geriatric Medicine; Visit Provider Surgery Vascular Surgery | DX: I83.11 Varicose veins of right lower extremity with inflammation (principal) | CPT/HCPCS: 99212 ==

== ENCOUNTER 2023-09-21 13:05 | Outpatient (AMB) | payer OTHER, SELFPAY ==
[2023-09-21 13:23] VITALS: BP 118/72; PULSE 72; O2SAT 98; BMI 29.3
--- NOTE | 2023-09-21 13:23 | MHC.OFFVIS ---
Intake Vital Signs 09/21/23 13:23 Height 4 ft 10 in Weight 139 lb 15.896 oz BMI 29.3 BP 118/72 Blood Pressure Location Lt brachial Position Sitting Pulse 72 Pulse Source Doppler Pulse Oximetry (%) 98 Oxygen Delivery Method Room Air Intake Visit Reasons: Asthma Allergies vancomycin [VANCOMYCIN] Allergy (Intermediate, Verified 03/08/23 13:43) FACIAL FLUSHING/ITCHING trazodone [TRAZODONE] Allergy (Unknown, Verified 03/08/23 13:43) PER H&P HPI Asthma HPI Details 68-year-old lady, former minimal (5 pack years total) smoker in her 20s, with underlying history of obesity status post gastric bypass, also followed by Cardiology service for dyspnea followed for moderate to severe persistent asthma and environmental allergies. Patient has not been sent for over 2 years, now she returns to follow-up stating that her baseline regimen of Symbicort, budesonide, formoterol, and duo nebs is working well, but she needs refills and a new order for her nebulizer. She denies recent acute exacerbations. [facility] Medical History (Updated 09/21/23 @ 13:52 by Torey Lu MD) Moderate persistent asthma Hernia of enterostomy Anemia Environmental allergies Dysphagia GERD (gastroesophageal reflux disease) Malabsorption due to intolerance, not elsewhere classified LUQ abdominal tenderness IBS (irritable bowel syndrome) Herniated disc Anxiety Depression Surgical History History of endoscopy Hx of hernia repair H/O neck surgery Hx of hammer toe correction H/O colonoscopy History of bunionectomy S/P rotator cuff repair History of Rebecca-en-Y gastric bypass History of back surgery H/O laminectomy History of bladder surgery Hx laparoscopic cholecystectomy History of partial hysterectomy Family History Father Alcohol abuse Cancer Diabetes Mother Colon cancer Liver cancer Diabetes Brother Cancer Social History Household Members: Family Household Members Other:: grandchildren and daughter Housing: House Alcohol intake: current Alcohol intake frequency: does not drink Patient Tobacco Use Status: Former Tobacco user Quit Date: 45 YEARS AGO Years Smoked: 5 +/- service: No Current occupational status: retired Current occupation: Right Handed Review of Systems Const Denies daytime sleepiness, Denies excessive sweating, Denies fatigue, Denies fever(s), Denies lethargy, Denies malaise, Denies night sweats, Denies snoring and Denies weight loss Eyes Denies blurry vision and Denies itchy eyes ENT Denies nasal congestion, Denies post nasal drip, Denies sinus pain, Denies sinus pressure and Denies other ( Thrush) Card Denies chest pain, Denies pedal edema, Denies dyspnea, Denies orthopnea and Denies paroxysmal nocturnal dyspnea Resp Denies cough, Denies hemoptysis, Denies excessive phlegm production, Denies dyspnea, Denies snoring and Denies wheezing GI Denies abdominal pain and Denies heartburn Musc Denies myalgias, Denies arthralgias and Denies joint swelling Skin/Breast Denies rash Neuro Denies memory loss and Denies seizure-like activity Psych Denies abnormal sleep pattern, Denies anxiety and Denies memory loss Endo Denies excessive sweating, Denies fatigue and Denies heat intolerance Sanju/Lymph Denies easy bruising Aller/Immun Denies itchy eyes, Denies seasonal rhinorrhea and Denies wheezing Physical Exam Vital Signs: Last Vital Signs Pulse 72 09/21/23 13:23 BP 118/72 09/21/23 13:23 Pulse Ox 98 09/21/23 13:23 Oxygen Delivery Method Room Air 09/21/23 13:23 BMI result Body Mass Index 29.3 Const General: no acute distress and alert Nutritional Appearance: not obese Orientation/consciousness: Other orientation findings ( oriented) HEENT Head: Yes atraumatic Eyes General: appearance normal, both eyes and all related structures Sclerae: sclerae normal EOM: EOMs intact bilaterally Neck Neck: Yes supple Lymphatic: no lymphadenopathy noted Resp Effort & Inspection: normal respiratory effort and no use of accessory muscles Auscultation: clear to auscultation bilaterally Cardio Rate: regular rate Rhythm: regular rhythm Heart sounds: no gallops, no murmurs and no rubs Skin General skin exam: other ( warm) Extrem General: No clubbing, No cyanosis and No edema Assessment & Plan Assessment & Plan (1) Moderate persistent asthma: Code(s): J45.40 - Moderate persistent asthma, uncomplicated Plan Well controlled on baseline regimen of Symbicort, budesonide / arformoterol, DuoNeb, and albuterol MDI. Continue current regimen. Nebulizer script placed. Medications: Refilled ipratropium-albuterol 0.5 mg-3 mg(2.5 mg base)/3 mL 3 mL inhalation Q4-6H PRN 180 mL 6RF wheezing 30 days J45.40 - Moderate persistent asthma, uncomplicated arformoterol (Brovana) 2 mL inhalation BID 60 mL 11RF budesonide-formoterol 160-4.5 mcg/actuation (Symbicort) 2 puffs inhalation BID 10.2 grams 6RF 30 days budesonide 0.25 mg (2 mL) inhalation BID 60 mL 11RF Coding Level of Care Code Est Pt Level 3 (91526) Diagnoses Moderate persistent asthma J45.40
== END 2023-09-21 13:50 | disposition home or self-care (01) ==
PROVIDERS: PCP Internal Medicine Geriatric Medicine; Visit Provider Internal Medicine Pulmonary Disease
DX: J45.40 Moderate persistent asthma, uncomplicated (principal)
CPT/HCPCS: 99213

== ENCOUNTER → 2023-09-21 13:05 | Outpatient (BNVA) | payer OTHER, SELFPAY | PROVIDERS: PCP Internal Medicine Geriatric Medicine; Visit Provider Internal Medicine Pulmonary Disease | DX: J45.40 Moderate persistent asthma, uncomplicated (principal) | CPT/HCPCS: 99212 ==

== ENCOUNTER 2024-01-11 14:50 | Outpatient (REF) | payer OTHER, SELFPAY ==
[2024-01-11 16:37] LABS: Anion Gap 10 (12-20); Blood Urea Nitrogen 10 mg/dL (9-16); Calcium 9.3 mg/dL (8.4-10.2); Carbon Dioxide 31 mmol/L (22-29); Chloride 106 mmol/L (96-108); Estimated Glomerular Filt Rate > 60; Glucose Random 84 mg/dL (60-115); Potassium 3.9 mmol/L (3.3-5.1); Sodium 143 mmol/L (135-145)
[2024-01-11 16:38] LABS: Parathyroid Hormone Intact 129.5 pg/mL (8.7-77.1)
[2024-01-11 16:55] LABS: Vitamin D 25-OH Total 17.1 ng/mL (>30)
== END 2024-01-11 14:51 | disposition home or self-care (01) ==
LOC: HO.HHCL 14:50
PROVIDERS: Visit Provider Internal Medicine Geriatric Medicine
DX: R79.89 Other specified abnormal findings of blood chemistry (principal); E55.9 Vitamin D deficiency, unspecified
CPT/HCPCS: 36415; 80048; 82306; 83970

== ENCOUNTER 2024-03-27 12:51 | Outpatient (AMB) | payer OTHER, SELFPAY ==
[2024-03-27 13:08] VITALS: BP 126/78; PULSE 70; O2SAT 98; BMI 29.3
--- NOTE | 2024-03-27 13:08 | A.OFFVIS_ITS ---
Vital Signs 03/27/24 13:08 Height 4 ft 10 in Weight 140 lb BMI 29.3 BP 126/78 Blood Pressure Location Rt brachial Position Sitting Pulse 70 Pulse Source Doppler Pulse Oximetry (%) 98 Oxygen Delivery Method Room Air Intake Visit Reasons: Asthma Professor Of Economics Required: Yes Professor Of Economics Name: Belkis Gene Harding Allergies vancomycin [VANCOMYCIN] Allergy (Intermediate, Verified 12/14/23 13:32) FACIAL FLUSHING/ITCHING trazodone [TRAZODONE] Allergy (Unknown, Verified 12/14/23 13:32) PER H&P HPI HPI Asthma: Details: 68-year-old lady, former minimal (5 pack years total) smoker in her 20s, with underlying history of obesity status post gastric bypass, also followed by Cardiology service for dyspnea followed for moderate to severe persistent asthma and environmental allergies. She has been using budesonide, arformoterol, and albuterol MDI/nebs with good control of her symptoms. She does complain of mild exacerbation symptomatic with wheezing. Patient is also complain of orthopnea and lower extremity edema. [facility] Medical History (Updated 03/27/24 @ 13:47 by Torey Lu MD) Hernia of enterostomy Anemia Environmental allergies Moderate persistent asthma Dysphagia GERD (gastroesophageal reflux disease) Malabsorption due to intolerance, not elsewhere classified LUQ abdominal tenderness IBS (irritable bowel syndrome) Herniated disc Anxiety Depression Surgical History (Updated 12/14/23 @ 13:45 by Renee Boyd MD) History of total left knee replacement (TKR) History of endoscopy Hx of hernia repair H/O neck surgery Hx of hammer toe correction H/O colonoscopy History of bunionectomy S/P rotator cuff repair History of Rebecca-en-Y gastric bypass History of back surgery H/O laminectomy History of bladder surgery Hx laparoscopic cholecystectomy History of partial hysterectomy Family History Father Alcohol abuse Cancer Diabetes Mother Colon cancer Liver cancer Diabetes Brother Cancer Social History Household Members: Family Household Members Other:: grandchildren and daughter Housing: House Alcohol intake: current Alcohol intake frequency: does not drink Patient Tobacco Use Status: Former Tobacco user Quit Date: 45 YEARS AGO Years Smoked: 5 +/- Have you been hit, kicked, punched, or otherwise hurt by someone within the past year? If so, by whom?: No Do you feel safe in your current relationship?: No Current Relationship Do you have thoughts of harming others: None Do you have a plan to hurt others: No Plan Do you have the means to hurt others: No Recently lost weight without trying: No service: No Current occupational status: retired Current occupation: Right Handed Review [employer] Systems Const Denies daytime sleepiness, Denies excessive sweating, Denies fatigue, Denies fever(s), Denies lethargy, Denies malaise, Denies night sweats, Denies snoring and Denies weight loss Eyes Denies blurry vision and Denies itchy eyes ENT Denies nasal congestion, Denies post nasal drip, Denies sinus pain, Denies sinus pressure and Denies other ( Thrush) Card Denies chest pain, Reports pedal edema, Denies dyspnea, Reports orthopnea and Denies paroxysmal nocturnal dyspnea Resp Denies cough, Denies hemoptysis, Denies excessive phlegm production, Denies dyspnea, Denies snoring and Denies wheezing GI Denies abdominal pain and Denies heartburn Musc Denies myalgias, Denies arthralgias and Denies joint swelling Skin/Breast Denies rash Neuro Denies memory loss and Denies seizure-like activity Psych Denies abnormal sleep pattern, Denies anxiety and Denies memory loss Endo Denies excessive sweating, Denies fatigue and Denies heat intolerance Sanju/Lymph Denies easy bruising Aller/Immun Denies itchy eyes, Denies seasonal rhinorrhea and Denies wheezing Physical Exam Vital Signs: Last Vital Signs Pulse 70 03/27/24 13:08 BP 126/78 03/27/24 13:08 Pulse Ox 98 03/27/24 13:08 Oxygen Delivery Method Room Air 03/27/24 13:08 BMI result Body Mass Index 29.3 Const General: no acute distress and alert Nutritional Appearance: not obese Orientation/consciousness: Other orientation findings ( oriented) HEENT Head: Yes atraumatic Eyes General: appearance normal, both eyes and all related structures Sclerae: sclerae normal EOM: EOMs intact bilaterally Neck Neck: Yes supple Lymphatic: no lymphadenopathy noted Resp Effort & Inspection: normal respiratory effort and no use of accessory muscles Auscultation: clear to auscultation bilaterally Cardio Rate: regular rate Rhythm: regular rhythm Heart sounds: no gallops, no murmurs and no rubs Skin General skin exam: other ( warm) Extrem General: No clubbing, No cyanosis and Yes edema (Trace bilateral) Assessment & Plan Assessment & Plan (1) Moderate persistent asthma: Code(s): J45.40 - Moderate persistent asthma, uncomplicated Category: Medical Plan: Well controlled on current regimen of budesonide, formoterol, and albuterol MDI/nebs. Continue current regimen. Now with mild exacerbation, will treat with a prednisone taper. (2) Orthopnea: Code(s): R06.01 - Orthopnea Category: Medical Plan: With worsening lower extremity edema and orthopnea. Will try empiric Lasix for 7 days. Medications: New prednisone Take 4 tabs daily for 3 days, then go down by 1 tab every 3 days 10 mg PO DIRECTED 30 tabs 0RF furosemide (Lasix) 40 mg PO DAILY 7 tabs 0RF Refilled budesonide 0.25 mg (2 mL) inhalation BID 60 mL 11RF arformoterol (Brovana) 2 mL inhalation BID 60 mL 11RF Discontinued budesonide-formoterol 160-4.5 mcg/actuation (Symbicort) Discontinued Reason: Doctor's Order 2 puffs inhalation BID 30 days 10.2 grams 6RF Coding Level of Care Code Est Pt Level 4 (59148) Diagnoses Moderate persistent asthma J45.40 Orthopnea R06.01
== END 2024-03-27 13:33 | disposition home or self-care (01) ==
PROVIDERS: PCP Internal Medicine Geriatric Medicine; Visit Provider Internal Medicine Pulmonary Disease
DX: J45.40 Moderate persistent asthma, uncomplicated (principal); R06.01 Orthopnea
CPT/HCPCS: 99214

== ENCOUNTER → 2024-03-27 12:51 | Outpatient (BNVA) | payer OTHER, SELFPAY | PROVIDERS: PCP Internal Medicine Geriatric Medicine; Visit Provider Internal Medicine Pulmonary Disease | DX: J45.40 Moderate persistent asthma, uncomplicated (principal); R06.01 Orthopnea | CPT/HCPCS: 99212 ==

== ENCOUNTER 2024-05-22 11:51 | Outpatient (REF) | payer OTHER, SELFPAY ==
[2024-05-22 13:06] LABS: MANUAL DIFF FLAG NO
[2024-05-22 13:22] LABS: Basophils Percent Auto 0.6 % (0-2); Eosinophils Absolute Auto 0.1 X10*3/uL (0.0-0.4); Eosinophils Percent Auto 1.5 % (0-4); Hematocrit 39.3 % (37.0-47.0); Imm Gran Abs Auto 0.01 X10*3/uL (0.00-0.03); Imm Gran Pct Auto 0.2 % (0.0-0.4); Lymphocytes Absolute Auto 1.6 X10*3/uL (1.2-4.9); Lymphocytes Percent Auto 30.3 % (20-40); Mean Corpuscular HGB Conc 30.5 g/dl (31.0-35.0); Mean Corpuscular Hemoglobin 25.4 pg (27.0-33.0); Mean Corpuscular Volume 83.1 fL (80.0-98.0); Mean Platelet Volume 11.8 fL (9.4-12.3); Monocytes Absolute Auto 0.7 X10*3/uL (0.1-1.2); Monocytes Percent Auto 12.7 % (2-11); Neutrophils Absolute Auto 2.9 x10*3/uL (2.0-8.3); Neutrophils Percent Auto 54.7 % (45-73); Platelet Count 260 X10*3/uL (160-400); Red Blood Count 4.73 X10*6/uL (4.20-5.50); Red Cell Distribution Width 15.2 % (11.0-16.0); White Blood Count 5.3 X10*3/uL (4.8-10.8)
[2024-05-22 13:48] LABS: Alanine Aminotransferase 17 U/L (0-31); Albumin Level 4.1 g/dL (3.5-5.0); Alkaline Phosphatase 88 U/L (39-117); Anion Gap 13 (12-20); Aspartate Amino Transferase 18 U/L (5-31); Bilirubin Total 0.2 mg/dL (0.0-1.0); Blood Urea Nitrogen 9 mg/dL (9-16); Calcium 9.3 mg/dL (8.4-10.2); Carbon Dioxide 28 mmol/L (22-29); Chloride 107 mmol/L (96-108); Estimated Glomerular Filt Rate > 60; Glucose Random 81 mg/dL (60-115); Potassium 4.6 mmol/L (3.3-5.1); Sodium 143 mmol/L (135-145); Total Protein 7.2 g/dL (6.5-8.0)
== END 2024-05-22 11:52 | disposition home or self-care (01) ==
LOC: HO.HHCL 11:51
PROVIDERS: Visit Provider Internal Medicine Geriatric Medicine
DX: R13.19 Other dysphagia (principal)
CPT/HCPCS: 36415; 80053; 85025

== ENCOUNTER 2024-08-22 11:43 | Outpatient (REF) | payer OTHER, SELFPAY ==
[2024-08-22 13:28] LABS: MANUAL DIFF FLAG NO
[2024-08-22 13:44] LABS: Basophils Percent Auto 0.5 % (0-2); Eosinophils Absolute Auto 0.1 X10*3/uL (0.0-0.4); Eosinophils Percent Auto 1.8 % (0-4); Hematocrit 34.7 % (37.0-47.0); Hemoglobin 10.6 g/dl (12.0-16.0); Imm Gran Abs Auto 0.01 X10*3/uL (0.00-0.03); Imm Gran Pct Auto 0.3 % (0.0-0.4); Lymphocytes Absolute Auto 1.3 X10*3/uL (1.2-4.9); Lymphocytes Percent Auto 33.6 % (20-40); Mean Corpuscular HGB Conc 30.5 g/dl (31.0-35.0); Mean Corpuscular Hemoglobin 24.5 pg (27.0-33.0); Mean Corpuscular Volume 80.1 fL (80.0-98.0); Monocytes Absolute Auto 0.5 X10*3/uL (0.1-1.2); Monocytes Percent Auto 13.8 % (2-11); Platelet Count 209 X10*3/uL (160-400); Red Blood Count 4.33 X10*6/uL (4.20-5.50); Red Cell Distribution Width 15.5 % (11.0-16.0); White Blood Count 3.9 X10*3/uL (4.8-10.8)
[2024-08-22 14:17] LABS: Alanine Aminotransferase 15 U/L (0-31); Albumin Level 3.9 g/dL (3.5-5.0); Alkaline Phosphatase 90 U/L (39-117); Anion Gap 10 (12-20); Aspartate Amino Transferase 20 U/L (5-31); Bilirubin Total 0.4 mg/dL (0.0-1.0); Blood Urea Nitrogen 10 mg/dL (9-16); Calcium 8.8 mg/dL (8.4-10.2); Carbon Dioxide 29 mmol/L (22-29); Chloride 107 mmol/L (96-108); Estimated Glomerular Filt Rate > 60; Glucose Random 96 mg/dL (60-115); Lipase 18 U/L (8-78); Potassium 3.9 mmol/L (3.3-5.1); Sodium 142 mmol/L (135-145); Total Protein 6.7 g/dL (6.5-8.0)
[2024-08-22 14:32] LABS: Folate 6.5 ng/mL (> or = 4.0); Vitamin B12 242 pg/mL (200-900)
[2024-08-22 16:30] LABS: Iron 69 mcg/dL (30-160); Percent Iron Saturation 21 % (15-50); Total Iron Binding Capacity 331 mcg/dL (228-428); Unsaturated Iron Binding 262 ug/dL
[2024-08-22 16:35] LABS: Ferritin 15 ng/mL (10-250)
== END 2024-08-22 11:44 | disposition home or self-care (01) ==
LOC: HO.HHCL 11:43
PROVIDERS: Visit Provider Internal Medicine Geriatric Medicine
DX: R10.11 Right upper quadrant pain (principal); Z86.2 Personal history of diseases of the blood and blood-forming organs and certain disorders involving the immune mechanism
CPT/HCPCS: 36415; 80053; 82607; 82728; 82746; 83540; 83690; 85025

== ENCOUNTER 2024-08-24 10:58 | Outpatient (REF) | payer OTHER, SELFPAY ==
[2024-08-24 14:08] LABS: Ferritin 15 ng/mL (10-250); Iron 131 mcg/dL (30-160); Percent Iron Saturation 38 % (15-50); Total Iron Binding Capacity 342 mcg/dL (228-428); Unsaturated Iron Binding 211 ug/dL
== END 2024-08-24 10:59 | disposition home or self-care (01) ==
LOC: HO.HHCL 10:58
PROVIDERS: Visit Provider Internal Medicine Geriatric Medicine
DX: D64.9 Anemia, unspecified (principal)
CPT/HCPCS: 36415; 82728; 83540

== ENCOUNTER 2024-08-28 10:29 | Outpatient (REF) | payer OTHER, SELFPAY | END 2024-08-28 10:30 | disposition home or self-care (01) | LOC: HO.HHCL 10:29 | PROVIDERS: Visit Provider Internal Medicine Geriatric Medicine | DX: R13.19 Other dysphagia (principal) | CPT/HCPCS: 87338 ==

== ENCOUNTER 2024-10-05 06:55 | Outpatient (REF) | payer OTHER, SELFPAY ==
--- NOTE | ~2024-10-05 | FL_ITS ---
EXAMINATION: XR FLUOROSCOPY UPPER GI WITH AIR CLINICAL INFORMATION: Dysphagia. History of gastric bypass. COMPARISON: None TECHNIQUE: Fluoroscopic air contrast upper GI examination was performed utilizing standard techniques with thin and thick barium and effervescent granules. Numerous spot images were obtained. FINDINGS: Lateral cine images of the oropharynx and hypopharynx demonstrate normal swallow mechanism with normal epiglottic inversion and soft palate elevation. No tracheal penetration, glottic or subglottic aspiration identified. No nasopharyngeal reflux present. A very small pharyngeal diverticulum is present. There was no significant cricopharyngeal achalasia. ACDF is noted at C5-C6. Dual and single contrast images of the esophagus demonstrate normal caliber, contour, and mucosal pattern. No evidence of stricture, mass, or ulcerations identified. Esophageal peristalsis was mildly disorganized. The patient swallowed the barium tablet without any difficulty. There is temporary stasis of the tablet in the cervical esophagus. With subsequent sips of water, the tablet passed distally, however, there was prolonged stasis of the tablet within the hiatal hernia. A small type I hiatal hernia is present. Gastroesophageal reflux is observed up to the thoracic inlet.. Dual contrast and single contrast images of the stomach demonstrate post surgical changes consistent with prior history of Rebecca-en-Y gastric bypass. The gastrojejunostomy is widely patent, without evidence of stricture. There are focal areas of contrast pooling within the hiatal hernia, which may represent small mucosal ulcerations. Contrast freely passed into the alimentary limb without delay. The imaged proximal jejunum has a normal fold pattern and caliber. Bilateral spinal stimulators are present, with leads terminating in the lumbar and cervical thecal sac. FLUOROSCOPY TIME: 6 minutes 51 seconds Number of Spot Images: 10 Number of Cine: 15 DOSE AREA PRODUCT: [id number] uGy-m2 (microgray-meter squared) FL/FL barium swallow IMPRESSION: 1. There is small pharyngeal diverticulum. 2. Mildly disordered esophageal peristalsis. 3. Temporary stasis of the barium tablet in the cervical esophagus that passed with subsequent sips of water. There was prolonged stasis of the tablet within the hiatal hernia. 4. Small type I hiatal hernia with significant gastroesophageal reflux. 5. Post surgical changes consistent with prior history of Rebecca-en-Y gastric bypass. Gastrojejunostomy is widely patent, without evidence of stricture. 6. There are focal areas of contrast pooling within the hiatal hernia that may represent small mucosal ulcerations. Recommend correlation with EGD. 7. Status post ACDF C5-C6. 8. Status post placement of bilateral spinal stimulators. The leads terminate in the cervical and lumbar thecal spinal canal. This procedure was performed by Mack Mcbride PA-C, and supervised by Dr. Serna Electronically signed by: Zacarias Serna MD 10/11/2024 04:49 PM [facility]
== END 2024-10-05 06:56 | disposition home or self-care (01) ==
LOC: HO.XRAY 06:55
PROVIDERS: PCP Internal Medicine Geriatric Medicine; Visit Provider Internal Medicine
DX: K21.9 Gastro-esophageal reflux disease without esophagitis (principal); Q39.6 Congenital diverticulum of esophagus; R13.19 Other dysphagia
CPT/HCPCS: 74220

== ENCOUNTER → 2024-10-05 06:58 | Outpatient (BNV) | payer OTHER, SELFPAY | PROVIDERS: PCP Internal Medicine Geriatric Medicine; Visit Provider Physician Assistant Surgical | DX: R13.10 Dysphagia, unspecified (principal); Z98.84 Bariatric surgery status | CPT/HCPCS: 74246 ==

== ENCOUNTER 2024-12-10 14:52 | Outpatient (REF) | payer OTHER, SELFPAY ==
--- NOTE | ~2024-12-10 | CT_ITS ---
CLINICAL HISTORY: RUQ and periumbilical pain on and off for the past 2-[address] abdomen with contrast Comparison: None Findings: The lung bases are clear. Hepatic steatosis. Cholecystectomy. Mild intra and extrahepatic biliary duct dilatation with distal tapering of the CBD, favored to be reservoir effect from cholecystectomy. Pancreas, spleen, and adrenal glands are within normal limits. No hydronephrosis. Symmetric contrast enhancement of the kidneys. Right upper pole cyst. Status post gastric bypass. Oral contrast is seen through the distal small bowel. No extraluminal contrast. No bowel obstruction, pneumatosis or pneumoperitoneum. Large amount of stool in the visualized colon. Partially visualized appendix is normal. Circumaortic left renal vein. Spinal stimulator battery packs in the bilateral flanks with electrode partially visualized in the lower thoracic. Posterior fusion of L4 and L5. No acute fracture. IMPRESSION: Mild intra and extrahepatic biliary duct dilatation with distal tapering of the CBD, favored to be reservoir effect from cholecystectomy. Correlate with LFTs. This document has been electronically signed by: Maikol Wilder MD on 12/12/2024 02:14:19
[2024-12-10] MEDS: iohexoL 350 MG/ML 100 ML INFUS..BTL 85 ML IV (16:12)
[2024-12-10] MEDS: Barium Sulfate Oral (Mocha) 450 ML ORAL.SUSP PO (16:13)
[2024-12-11 07:52] LABS: Creatinine POC 0.6 mg/dL (0.5-1.4); GFR POC > 60
== END 2024-12-10 14:53 | disposition home or self-care (01) ==
LOC: HO.CT 14:52
PROVIDERS: PCP Internal Medicine Geriatric Medicine; Visit Provider Internal Medicine Geriatric Medicine
DX: R10.11 Right upper quadrant pain (principal)
CPT/HCPCS: 74160; 82565; Q9967

== ENCOUNTER → 2024-12-10 14:54 | Outpatient (BNV) | payer OTHER, SELFPAY | PROVIDERS: PCP Internal Medicine Geriatric Medicine; Visit Provider Radiology Diagnostic Radiology | DX: R10.11 Right upper quadrant pain (principal); R10.33 Periumbilical pain | CPT/HCPCS: 74160 ==

== ENCOUNTER 2024-12-14 11:46 | Day surgery (SDC) | payer OTHER, SELFPAY ==
[2024-12-12 14:51] VITALS: BMI 31.2
--- NOTE | 2024-12-13 09:58 | P.CONAN_ITS ---
Documented by User: Courtney Youngblood NP 12/13/24 10:00 HPI - Anesthesia Eval Consult details Narrative: 69yo F for Upper Endoscopy with Balloon Dilitation, Colonoscopy PMFSH Active Problems Active Problems: All Active Problems Orthopnea (Acute) Exertional angina (Acute) Chest discomfort (Acute) Rotator cuff impingement syndrome of left shoulder (Acute) Trochanteric bursitis, left hip (Acute) Chronic idiopathic constipation (Acute) Varicose veins of right lower extremity with inflammation (Acute) Obesity (Acute) Moderate persistent asthma (Acute) IBS (irritable bowel syndrome) (Acute) GERD (gastroesophageal reflux disease) (Acute) Dysphagia (Acute) Anemia (Chronic) Past Medical History Medical History Hernia of enterostomy Anemia Environmental allergies Moderate persistent asthma Dysphagia GERD (gastroesophageal reflux disease) Malabsorption due to intolerance, not elsewhere classified LUQ abdominal tenderness IBS (irritable bowel syndrome) Herniated disc Anxiety Depression Family History Family History Father Alcohol abuse Cancer Diabetes Mother Colon cancer Liver cancer Diabetes Brother Cancer Family history of problems with anesthesia: No Surgical History Surgical History History of total left knee replacement (TKR) History of endoscopy Hx of hernia repair H/O neck surgery Hx of hammer toe correction H/O colonoscopy History of bunionectomy S/P rotator cuff repair History of Rebecca-en-Y gastric bypass History of back surgery H/O laminectomy History of bladder surgery Hx laparoscopic cholecystectomy History of partial hysterectomy History of Problems with Anesthesia: No Social History Social History Household Members: Family Household Members Other:: grandchildren and daughter Housing: House Alcohol intake: current Alcohol intake frequency: does not drink Patient Tobacco Use Status: Former Tobacco user Years Smoked: 5 +/- Have you been hit, kicked, punched, or otherwise hurt by someone within the past year? If so, by whom?: No Are you DNR?: No Advance Directives: No Advance Directives Information Provided: Yes Nutrition Risks: No Nutritional Risk service: No Current occupational status: retired Current occupation: Right Handed Meds Allergies Allergy/AdvReac Type Severity Reaction Status Date / Time vancomycin [VANCOMYCIN] Allergy Intermediate FACIAL Verified 12/14/23 13:32 FLUSHING/ITCHING trazodone [TRAZODONE] Allergy Unknown PER H&P Verified 12/14/23 13:32 Home Medications ?Medication ?Instructions ?Recorded ?Confirmed ?Last Taken ?Type bisacodyl 5 mg tablet,delayed 10 mg PO BID PRN Constipation 08/28/20 12/12/24 12/12/24 History release bupropion HCl 300 mg 24 hr tablet, 300 mg PO QAM 08/28/20 12/12/24 12/12/24 History extended release clonazepam 1 mg tablet 1 mg PO BID 08/28/20 12/12/24 12/13/24 History levothyroxine 25 mcg tablet 25 mcg PO DAILY 08/28/20 12/12/24 12/12/24 History melatonin 5 mg tablet 5 mg PO BEDTIME 08/28/20 12/12/24 12/13/24 History mirtazapine 30 mg tablet 30 mg PO BEDTIME 08/28/20 12/12/24 12/13/24 History tramadol 50 mg tablet 50 mg PO TID PRN Pain 08/28/20 12/12/24 12/12/24 History vitamin A 3,000 mcg (10,000 unit) 10,000 unit PO DAILY 05/05/22 12/12/24 12/12/24 History capsule calcium 600 mg (as 1 tab PO DAILY 06/24/22 12/12/24 12/12/24 History carbonate)-vitamin D3 20 mcg (800 unit) tablet acetaminophen 500 mg tablet 1,000 mg PO Q8H PRN pain 09/21/22 12/12/24 12/12/24 History cholecalciferol (vitamin D3) 50 50 mcg PO DAILY 09/21/22 12/12/24 12/12/24 History mcg (2,000 unit) tablet famotidine 20 mg tablet 20 mg PO BID 09/21/22 12/12/24 12/12/24 History ferrous sulfate 325 mg (65 mg 325 mg PO DAILY 09/21/22 12/12/24 12/12/24 History iron) tablet folic acid 1 mg tablet 1 mg PO DAILY 09/21/22 12/12/24 12/12/24 History multivitamin 1 tab PO DAILY 09/21/22 12/12/24 12/12/24 History cyanocobalamin (vitamin B-12) 1,000 mcg PO DAILY 01/18/23 12/12/24 12/12/24 H istory 1,000 mcg tablet omeprazole 40 mg capsule,delayed 40 mg PO DAILY 01/18/23 12/12/24 12/12/24 History release B12 IM 12/14/24 12/12/24 History Exam Height,Weight and Vital Signs: Height 4 ft 9 in Weight 65.317 kg Assessment and Plan Assessment Anesthesia Assessment: Chart Reviewed Final Anesthetic Review Family History of Problems with Anesthesia: No History of Problems with Anesthesia: No Documented by User: Laly Dangelo MD 12/14/24 14:18 HPI - Anesthesia Eval Consult details Narrative: 69yo F for Upper Endoscopy with Balloon Dilatation, Colonoscopy PMFSH Active Problems Active Problems: All Active Problems H/o Orthopnea (Acute) H/o Exertional angina (Acute) H/o Chest discomfort (Acute) Rotator cuff impingement syndrome of left shoulder (Acute) Trochanteric bursitis, left hip (Acute) Chronic idiopathic constipation (Acute) Varicose veins of right lower extremity with inflammation (Acute) Obesity (Acute) Moderate persistent asthma (Acute) IBS (irritable bowel syndrome) (Acute) GERD (gastroesophageal reflux disease) (Acute) Dysphagia (Acute) Anemia (Chronic) HARRISON. Cannot tolerate CPAP machine Past Medical History Medical History Hernia of enterostomy Anemia Environmental allergies Moderate persistent asthma Dysphagia GERD (gastroesophageal reflux disease) Malabsorption due to intolerance, not elsewhere classified LUQ abdominal tenderness IBS (irritable bowel syndrome) Herniated disc Anxiety Depression Family History Family History Father Alcohol abuse Cancer Diabetes Mother Colon cancer Liver cancer Diabetes Brother Cancer Family history of problems with anesthesia: No Surgical History Surgical History History of total left knee replacement (TKR) History of endoscopy Hx of hernia repair H/O neck surgery Hx of hammer toe correction H/O colonoscopy History of bunionectomy S/P rotator cuff repair History of Rebecca-en-Y gastric bypass History of back surgery H/O laminectomy History of bladder surgery Hx laparoscopic cholecystectomy History of partial hysterectomy History of Problems with Anesthesia: No Social History Social History Household Members: Family Household Members Other:: grandchildren and daughter Housing: House Alcohol intake: current Alcohol intake frequency: does not drink Patient Tobacco Use Status: Former Tobacco user Years Smoked: 5 +/- Have you been hit, kicked, punched, or otherwise hurt by someone within the past year? If so, by whom?: No Are you DNR?: No Advance Directives: No Advance Directives Information Provided: Yes Nutrition Risks: No Nutritional Risk service: No Current occupational status: retired Current occupation: Right Handed Meds Allergies Allergy/AdvReac Type Severity Reaction Status Date / Time vancomycin [VANCOMYCIN] Allergy Intermediate FACIAL Verified 12/14/23 13:32 FLUSHING/ITCHING trazodone [TRAZODONE] Allergy Unknown PER H&P Verified 12/14/23 13:32 Home Medications ?Medication ?Instructions ?Recorded ?Confirmed ?Last Taken ?Type bisacodyl 5 mg tablet,delayed 10 mg PO BID PRN Constipation 08/28/20 12/12/24 12/12/24 History release bupropion HCl 300 mg 24 hr tablet, 300 mg PO QAM 08/28/20 12/12/24 12/12/24 His tory extended release clonazepam 1 mg tablet 1 mg PO BID 08/28/20 12/12/24 12/13/24 History levothyroxine 25 mcg tablet 25 mcg PO DAILY 08/28/20 12/12/24 12/12/24 History melatonin 5 mg tablet 5 mg PO BEDTIME 08/28/20 12/12/24 12/13/24 History mirtazapine 30 mg tablet 30 mg PO BEDTIME 08/28/20 12/12/24 12/13/24 History tramadol 50 mg tablet 50 mg PO TID PRN Pain 10/12/1712/12/24 12/12/24 History vitamin A 3,000 mcg (10,000 unit) 10,000 unit PO DAILY 05/05/22 12/12/24 12/12/24 History capsule calcium 600 mg (as 1 tab PO DAILY 06/24/22 12/12/24 12/12/24 History carbonate)-vitamin D3 20 mcg (800 unit) tablet acetaminophen 500 mg tablet 1,000 mg PO Q8H PRN pain 09/21/22 12/12/24 12/12/24 History cholecalciferol (vitamin D3) 50 50 mcg PO DAILY 09/21/22 12/12/24 12/12/24 History mcg (2,000 unit) tablet famotidine 20 mg tablet 20 mg PO BID 09/21/22 12/12/24 12/12/24 History ferrous sulfate 325 mg (65 mg 325 mg PO DAILY 09/21/22 12/12/24 12/12/24 History iron) tablet folic acid 1 mg tablet 1 mg PO DAILY 09/21/22 12/12/24 12/12/24 History multivitamin 1 tab PO DAILY 09/21/22 12/12/24 12/12/24 History cyanocobalamin (vitamin B-12) 1,000 mcg PO DAILY 01/18/23 12/12/24 12/12/24 History 1,000 mcg tablet omeprazole 40 mg capsule,delayed 40 mg PO DAILY 01/18/23 12/12/24 12/12/24 History release B12 IM 12/14/24 12/12/24 History Exam Height,Weight and Vital Signs: Height 4 ft 9 in Weight 65.317 kg Vital Signs Temp Pulse Resp BP Pulse Ox O2 Del Method 12/14/24 11:53 98.5 F 76 20 151/76 H 97 Room Air Airway Mallampati Class: II TM Dist: >3cm Neck ROM: Full Denture: Lower Partial: Upper Loose/Missing/Broken Teeth: Yes (Denies broken or loose teeth ) Heart: RRR Lungs: CTAB Assessment and Plan Assessment Anesthesia Assessment: Anesthesia Plan Discussed and Chart Reviewed Final Anesthetic Review Family History of Problems with Anesthesia: No History of Problems with Anesthesia: No NPO: Yes ASA Class: III Final Preanesthetic Review: No Changes in Pt Med Stat, Meds/Allgs Chart Reviewed, Consent Obtained/Reviewed and Anes Risks/Benef Reviewed Patient Risk: Intermediate Procedure Risk: Low Assessment/Block/Sedation in SS: Assess/Block/Sedation-SS Anesthetic Plan Anesthetic Plan: TIVA Disposition: Standard PACU
[2024-12-14 11:53] VITALS: BP 151/76; PULSE 76; RESP 20; TEMP 36.9; O2SAT 97; BMI 31.1
[2024-12-14] MEDS: Lactated Ringers 1,000 ML 100 ML IVCONT (12:16)
[2024-12-14 15:34] VITALS: BP 132/80; PULSE 76; RESP 16; TEMP 36.2; O2SAT 98
[2024-12-14 15:49] VITALS: BP 139/79; PULSE 80; RESP 16; TEMP 36.2; O2SAT 95
--- NOTE | 2024-12-14 17:25 | PM.OP ---
Brief Operative Note Date of Service: 12/14/24 Pre-op diagnosis: Dysphagia, Screening Post-op diagnosis: other (GERD, Diverticulosis but limited prep) Procedure: EGD with Balloon dilation of EG Junction from 18mm to 19mm to 20mm; Colonoscopy to the cecum Surgeon: Sebastián Jorge MD Anesthesia: MAC Was an Conservation Technician used for this Procedure?: No Estimated blood loss (mL): 0 Pathology: none sent Condition: stable Disposition: PACU
--- NOTE | 2024-12-15 01:41 | OP_ITS ---
DATE OF SERVICE: 12/14/2024 SURGEON: Sebastián Jorge MD INDICATIONS: The patient presents for evaluation of dysphagia and colorectal cancer screening. Full consent has been obtained from her for both procedures, including risks of bleeding and perforation. PREOPERATIVE DIAGNOSIS: POSTOPERATIVE DIAGNOSIS: PROCEDURE PERFORMED: Esophagogastroduodenoscopy with balloon dilation of gastroesophageal junction, and colonoscopy to the cecum. ESTIMATED BLOOD LOSS: COMPLICATIONS: ANESTHESIA: ASSISTANTS: SPECIMENS: PREOPERATIVE DIAGNOSES: Dysphagia, colorectal cancer screening. POSTOPERATIVE DIAGNOSES: Dysphagia, colorectal cancer screening, gastroesophageal reflux, diverticulosis, internal hemorrhoids, poor prep. DESCRIPTION OF PROCEDURE: The patient was placed in the left lateral decubitus position. The Olympus video gastroscope was passed in the posterior oropharynx and upper esophagus under direct vision. The scope was advanced to the distal esophagus. The gastroesophageal junction was seen at 32 cm. With insufflation of air, this opened well and there was no sign of any stricture nor ring. There were minimal changes of reflux noted, but no esophagitis. The scope easily entered the stomach, although there was only a tiny gastric remnant with the anastomosis from her previous gastric bypass seen at about 34 cm. The anastomosis was patent and allowed easy passage of the scope into the small bowel. The small bowel mucosa appeared normal. The scope was withdrawn back and visualized the anastomosis clearly, which appeared normal, without any ulceration nor stricture. The scope was withdrawn back in the gastric remnant, which appeared normal. The scope was withdrawn back to the esophagus. Although the gastroesophageal junction appeared patent, I did use a balloon to dilate the gastroesophageal junction given her symptomatology of dysphagia. I used a [employer] incremental balloon to dilate from 18 mm to 19 mm to 20 mm at the recommended pressure for between 30 and 60 seconds each. Post- dilation, there was no appreciable heme noted and no disruption of the gastroesophageal junction. The remainder of the esophagus appeared normal. The scope was then withdrawn from the patient. She was turned around for the colonoscopy. The digital rectal exam revealed no abnormalities. The Olympus video pediatric colonoscope was then entered into the rectum and advanced to the level of the cecum. Advancement was difficult due to a lot of adhesions from her previous surgery as well as a relatively poor prep with a lot of liquid stool. I was able to reach the level of the cecum with abdominal wall pressure. However, visualization of the cecum was very limited due to the retained stool despite attempts at irrigation and suctioning. The scope was then slowly withdrawn assessing all mucosal surfaces carefully. Again, prep was limited in various parts of the colon due to a lot of liquid stool. Again, attempts were made at irrigating and suctioning but without much success. I did not visualize any sign of polyps, colitis, nor angiodysplasias. There was a mild amount of sigmoid diverticulosis as best I could tell. Once in the rectum the scope was retroflexed, visualizing some internal hemorrhoids but no other pathology. The scope was straightened and withdrawn from the patient. She tolerated both procedures well and was returned to the recovery area in stable condition. IMPRESSION: 1. Gastroesophageal reflux. 2. Status post balloon dilation of gastroesophageal junction. 3. Diverticulosis. 4. Internal hemorrhoids. 5. Poor colon prep, which limited sensitivity of the procedure. PLAN: The patient will continue her regimen including omeprazole. Given the limited colonoscopy, I will plan to see her in followup and would recommend that she obtain a Cologuard test from her primary care physician. If this is negative, I would then recommend a repeat colonoscopy in 5 years for further screening. If the Cologuard test is positive, I would recommend a colonoscopy later this year instead with a 2-day colonoscopy prep rather than just a 1 day, so as to allow better visualization. MD LYLE Laura/VANNESSA / [phone] MTDAndree
== END 2024-12-14 16:01 | disposition home or self-care (01) ==
PROVIDERS: PCP Internal Medicine Geriatric Medicine; Visit Provider Internal Medicine
PROC: (CPT 43249; principal; 2024-12-14 13:40)
PROC: 0DJD8ZZ Inspection of Lower Intestinal Tract, Via Natural or Artificial Opening Endoscopic (ICD-10-PCS; CPT 45378; 2024-12-14 13:40)
DX: Z12.11 Encounter for screening for malignant neoplasm of colon (principal); Z80.0 Family history of malignant neoplasm of digestive organs; K57.30 Diverticulosis of large intestine without perforation or abscess without bleeding; K64.8 Other hemorrhoids; R13.19 Other dysphagia; K21.9 Gastro-esophageal reflux disease without esophagitis; K44.9 Diaphragmatic hernia without obstruction or gangrene; Q39.6 Congenital diverticulum of esophagus; J45.909 Unspecified asthma, uncomplicated; E03.9 Hypothyroidism, unspecified; G47.33 Obstructive sleep apnea (adult) (pediatric); F41.9 Anxiety disorder, unspecified; Z98.84 Bariatric surgery status; Z98.0 Intestinal bypass and anastomosis status; Z79.899 Other long term (current) drug therapy; Z88.1 Allergy status to other antibiotic agents; Z88.8 Allergy status to other drugs, medicaments and biological substances; Z98.890 Other specified postprocedural states; Z87.891 Personal history of nicotine dependence
CPT/HCPCS: 43249; G0105; C1726; J2003; J2704

== ENCOUNTER 2025-02-06 12:30 | Outpatient (RCR) | payer OTHER, SELFPAY ==
[2024-12-28 11:49] VITALS: BP 112/61; PULSE 86; RESP 16; TEMP 37.2; O2SAT 96
[2024-12-28] MEDS: Iron Sucrose Complex 200 MG/10 ML VIAL IVPUSH (11:57)
[2025-01-02 12:00] VITALS: BP 122/63; PULSE 74; RESP 14; TEMP 36.6; O2SAT 97
[2025-01-02] MEDS: Iron Sucrose Complex 200 MG/10 ML VIAL IVPUSH (13:30)
[2025-01-09 11:35] VITALS: BP 122/52; PULSE 70; RESP 14; TEMP 36.4; O2SAT 99
[2025-01-09] MEDS: Iron Sucrose Complex 200 MG/10 ML VIAL IVPUSH (11:53)
[2025-01-09] MEDS: 0.9 % Sodium Chloride Flush 10 ML SYRINGE 5 ML IVFLUSH (12:01)
[2025-01-23 12:43] VITALS: BP 125/57; PULSE 71; RESP 16; TEMP 36.2; O2SAT 97
[2025-01-23] MEDS: 0.9 % Sodium Chloride Flush 10 ML SYRINGE 5 ML IVFLUSH (12:46)
[2025-01-23] MEDS: Iron Sucrose Complex 200 MG/10 ML VIAL IVPUSH (12:46)
[2025-01-30 12:36] VITALS: BP 116/56; PULSE 73; RESP 14; TEMP 37.3; O2SAT 96
[2025-01-30] MEDS: Iron Sucrose Complex 200 MG/10 ML VIAL IVPUSH (12:45)
[2025-01-30] MEDS: 0.9 % Sodium Chloride Flush 10 ML SYRINGE 5 ML IVFLUSH (12:52)
[2025-02-06 12:31] VITALS: BP 108/51; PULSE 71; RESP 14; TEMP 36.9; O2SAT 98
[2025-02-06] MEDS: Iron Sucrose Complex 200 MG/10 ML VIAL IVPUSH (12:42)
[2025-02-06] MEDS: 0.9 % Sodium Chloride Flush 10 ML SYRINGE 5 ML IVFLUSH (12:49)
== END 2025-02-06 13:12 | disposition home or self-care (01) ==
LOC: HO.INF 12:30
PROVIDERS: Visit Provider Internal Medicine
DX: D64.9 Anemia, unspecified (principal)
CPT/HCPCS: 96374; J1756

== ENCOUNTER 2025-04-26 14:00 | Outpatient (REF) | payer OTHER, SELFPAY ==
--- OUTSIDE RECORDS SUMMARY | 2025-04-26 14:05 | XMS_ITS ---
Author Organization [facility] Address [address] [place] [address] Care Team Providers Care Lure Maker Name Role Phone Name Stoney BELTRAN Primary Care Provider UnavailSebastián Milner Unavailable [phone] Nessa Jarrell MD Unavailable Unavailable Allergies Allergen (clinical drug ingredient) Drug/Non Drug Allergy documented on EMR Reaction Allergy Type Onset Date Status vancomycin Vancomycin rash Drug Allergy Activ e trazodone traZODone changed mood Drug Allergy Acti ve REASON FOR VISIT Patient presents today for GERD Medications Medication SIG (Take, Route, Frequency, Duration) Notes Start Date End Date Status Levothyroxine Sodium 25 MCG Oral for 90 Active Omeprazole 40 MG TAKE 1 CAPSULE BY MO UTH EVERY MORNING for 30 Active Vitamin D 50 MCG (1999 UT) TAKE 1 TABLET BY MOUTH EVERY DAY Oral for 30 Active MiraLax (colon prep) 17 GM/SCOOP 1 238Gm bottle of mixed with Gatorade or Crystal Light Orally begin at 5:00 p.m. the day before the procedure for 1 day 11/04/2024 Active Dulcolax (colon prep) 5 MG take at 3:00 p.m and 7:00p.m. Orally two tablets twice a day for one day for 1 day 11/04/2024 Active Albuterol Sulfate HFA 108 (90 Base) MCG/ACT INHALE 2 PUFFS BY MOUTH EVERY 4 TO 6 HOURS NEEDED FOR SHORTNESS OF BREATH OR WHEEZING Inhalation for 16 Active clonazePAM 1 MG Oral for 30 Ac tive Melatonin 5 MG TAKE 1 TABLET BY KIKI TH EVERY NIGHT AT BEDTIME Oral for 30 Active Multi-Vitamins - TAKE 1 TABLET BY KIKI TH EVERY DAY WITH FOOD Oral for 30 Active traMADol HCl 50 MG TAKE 1 TABLET BY KIKI TH EVERY 8 HOURS NEEDED Oral for 7 Active Cyanocobalamin 1000 MCG 1 tablet Injecti on Once a month Active Vitamin B 12 500 MCG 1 tablet Orally Onc e a day for 30 day(s) Active Mirtazapine 30 MG TAKE 1 TABLET BY KIKI TH AT BEDTIME Oral for 30 Active buPROPion HCl ER (XL) 300 MG TAKE 1 TABL ET BY MOUTH EVERY MORNING Oral for 30 Active Immunizations Vaccine Route Administration Date Status Comme nts Influenza Unknown 04/24/2025 Refused Social History Tobacco Use: Social History Observation Description Date Details (start date - stop date) Never Smoker NA - NA Tobacco Use/Smoking Question Answer Notes Patient is a nonsmoker Alcohol Screen Question Answer Notes Did you have a drink containing alcohol in the p ast year? No Points 0 Interpretation Negative Section Notes: Nonsmoker; no sig alcohol Problems Problem Type SNOMED Code ICD Code Onset Dates Problem Status W/U Status Risk Notes Problem Constipation (86813074) Constipation (K59.00) Active confirmed Problem Fecal soiling (585692670) Fecal soiling (R15.1) Active confirmed Vital Signs Temperature 98.2 degrees Fahrenheit 04/24/20 25 Blood pressure systolic 001 mm Hg 04/24/20 25 Blood pressure diastolic 01 mm Hg 025 Height 57 in 04/24/2025 Weight 150 lbs 04/24/2025 BMI 32.46 kg/m2 04/24/2025 Procedures Procedure Date Ordered Date Performed Result Body Sit e COLONOSCOPY 04/24/2025 N/A Encounters Encounter Location Date Provider Diagnosis [facility] [address] [place] [id number] 04/24/2025 Sebastián Jorge Gastroesophageal ref lux disease, unspecified whether esophagitis present K21.9 ; Constipation K59.00 ; Fecal soiling R15.1 ; Family history of colon cancer Z80.0 and Colon cancer screening Z12.11 Assessments Encounter Date Diagnosis (ICD Code) Assessment Notes Treatment Notes Treatment Clinical Notes Section Notes 04/24/2025 Gastroesophageal reflux disease, unspecified whether esophagitis present (ICD-10 - K21.9) Use omeprazole every day. Use 3 TUMS every night before bedtime to prevent heartburn and acid reflux Overall, Tripp appears well from a clinical standpoint. She has not lost any weight. However, she does continue to have some GI symptoms. We did review the findings on both of her procedures from November. In regard to the ongoing upper GI complaints I advised her that this is in relation to her previous gastric bypass surgery in which she has a very tiny gastric remnant's and is probably having some component of bile reflux. I advised her that she could certainly continue omeprazole if she thinks it helps her but that she should also take several Tums at bedtime to try to prevent nocturnal symptoms of reflux and burning. I also advised her to be sure not to eat for a few hours before bedtime. I do not think she will need any more upper endoscopies at this time. I did recommend a repeat colonoscopy with a 2-day prep given her significant family history and a suboptimal exam in November. Her only other colonoscopy had been a long time ago, i.e. over 10 years, We did review the rationale for the colonoscopy in regard to colon cancer prevention and/or early detection. Full consent has been for this, including risks of bleeding and perforation. The procedure will be done with monitored anesthesia care. In regard to her occasional fecal incontinence I did recommend adding some Metamucil on a once or twice a day basis with a lot of water to see if that can help improve her bowel movements and emptying of the colon in the event she is having some significant constipation causing some leakage and fecal incontinence on that basis. As mentioned, her CT scan did show a lot of stool in the colon. Tripp was comfortable with this plan. Thank you again for allowing me to participate in Tripp's care. I shall continue to keep you advised of her progress. 04/24/2025 Constipation (ICD-10 - K59.00) Start using 2 Metamucil fiber pills once or twice every day with a lot of water to see if that helps with the BM's and the leakage. Overall, Tripp appears well from a clinical standpoint. She has not lost any weight. However, she does continue to have some GI symptoms. We did review the findings on both of her procedures from November. In regard to the ongoing upper GI complaints I advised her that this is in relation to her previous gastric bypass surgery in which she has a very tiny gastric remnant's and is probably having some component of bile reflux. I advised her that she could certainly continue omeprazole if she thinks it helps her but that she should also take several Tums at bedtime to try to prevent nocturnal symptoms of reflux and burning. I also advised her to be sure not to eat for a few hours before bedtime. I do not think she will need any more upper endoscopies at this time. I did recommend a repeat colonoscopy with a 2-day prep given her significant family history and a suboptimal exam in November. Her only other colonoscopy had been a long time ago, i.e. over 10 years, We did review the rationale for the colonoscopy in regard to colon cancer prevention and/or early detection. Full consent has been for this, including risks of bleeding and perforation. The procedure will be done with monitored anesthesia care. In regard to her occasional fecal incontinence I did recommend adding some Metamucil on a once or twice a day basis with a lot of water to see if that can help improve her bowel movements and emptying of the colon in the event she is having some significant constipation causing some leakage and fecal incontinence on that basis. As mentioned, her CT scan did show a lot of stool in the colon. Tripp was comfortable with this plan. Thank you again for allowing me to participate in Tripp's care. I shall continue to keep you advised of her progress. 04/24/2025 Fecal soiling (ICD-10 - R15.1) Overall, Tripp appears well from a clinical standpoint. She has not lost any weight. However, she does continue to have some GI symptoms. We did review the findings on both of her procedures from November. In regard to the ongoing upper GI complaints I advised her that this is in relation to her previous gastric bypass surgery in which she has a very tiny gastric remnant's and is probably having some component of bile reflux. I advised her that she could certainly continue omeprazole if she thinks it helps her but that she should also take several Tums at bedtime to try to prevent nocturnal symptoms of reflux and burning. I also advised her to be sure not to eat for a few hours before bedtime. I do not think she will need any more upper endoscopies at this time. I did recommend a repeat colonoscopy with a 2-day prep given her significant family history and a suboptimal exam in November. Her only other colonoscopy had been a long time ago, i.e. over 10 years, We did review the rationale for the colonoscopy in regard to colon cancer prevention and/or early detection. Full consent has been for this, including risks of bleeding and perforation. The procedure will be done with monitored anesthesia care. In regard to her occasional fecal incontinence I did recommend adding some Metamucil on a once or twice a day basis with a lot of water to see if that can help improve her bowel movements and emptying of the colon in the event she is having some significant constipation causing some leakage and fecal incontinence on that basis. As mentioned, her CT scan did show a lot of stool in the colon. Tripp was comfortable with this plan. Thank you again for allowing me to participate in Tripp's care. I shall continue to keep you advised of her progress. 04/24/2025 Family history of colon cancer (ICD-10 - Z80.0) Overall, Tripp appears well from a clinical standpoint. She has not lost any weight. However, she does continue to have some GI symptoms. We did review the findings on both of her procedures from November. In regard to the ongoing upper GI complaints I advised her that this is in relation to her previous gastric bypass surgery in which she has a very tiny gastric remnant's and is probably having some component of bile reflux. I advised her that she could certainly continue omeprazole if she thinks it helps her but that she should also take several Tums at bedtime to try to prevent nocturnal symptoms of reflux and burning. I also advised her to be sure not to eat for a few hours before bedtime. I do not think she will need any more upper endoscopies at this time. I did recommend a repeat colonoscopy with a 2-day prep given her significant family history and a suboptimal exam in November. Her only other colonoscopy had been a long time ago, i.e. over 10 years, We did review the rationale for the colonoscopy in regard to colon cancer prevention and/or early detection. Full consent has been for this, including risks of bleeding and perforation. The procedure will be done with monitored anesthesia care. In regard to her occasional fecal incontinence I did recommend adding some Metamucil on a once or twice a day basis with a lot of water to see if that can help improve her bowel movements and emptying of the colon in the event she is having some significant constipation causing some leakage and fecal incontinence on that basis. As mentioned, her CT scan did show a lot of stool in the colon. Tripp was comfortable with this plan. Thank you again for allowing me to participate in Tripp's care. I shall continue to keep you advised of her progress. 04/24/2025 Colon cancer screening (ICD-10 - Z12.11) Overall, Tripp appears well from a clinical standpoint. She has not lost any weight. However, she does continue to have some GI symptoms. We did review the findings on both of her procedures from November. In regard to the ongoing upper GI complaints I advised her that this is in relation to her previous gastric bypass surgery in which she has a very tiny gastric remnant's and is probably having some component of bile reflux. I advised her that she could certainly continue omeprazole if she thinks it helps her but that she should also take several Tums at bedtime to try to prevent nocturnal symptoms of reflux and burning. I also advised her to be sure not to eat for a few hours before bedtime. I do not think she will need any more upper endoscopies at this time. I did recommend a repeat colonoscopy with a 2-day prep given her significant family history and a suboptimal exam in November. Her only other colonoscopy had been a long time ago, i.e. over 10 years, We did review the rationale for the colonoscopy in regard to colon cancer prevention and/or early detection. Full consent has been for this, including risks of bleeding and perforation. The procedure will be done with monitored anesthesia care. In regard to her occasional fecal incontinence I did recommend adding some Metamucil on a once or twice a day basis with a lot of water to see if that can help improve her bowel movements and emptying of the colon in the event she is having some significant constipation causing some leakage and fecal incontinence on that basis. As mentioned, her CT scan did show a lot of stool in the colon. Tripp was comfortable with this plan. Thank you again for allowing me to participate in Ricardo care. I shall continue to keep you advised of her progress. Plan Of Treatment Treatment Notes Assessment Notes Gastroesophageal reflux dise ase, unspecified whether esophagitis present Use omeprazole every day. Use 3 TUMS every night before bedtime to prevent heartburn and acid reflux Constipation Start using 2 Metamu cil fiber pills once or twice every day with a lot of water to see if that helps with the BM's and the leakage. Pending Test Test Name Order Date COLONOSCOPY 04/24/2025 Next Appt Details Provider Name:Sebastián Jorge , 07/15/2025 12:20:00 PM, [address], [address], [place], [address], Progress Notes * TRIPP GUZMÁNDOB:[birth year] (69 yo F)Acc No.[id number]:04/24/2025 Progress Notes Patient:?TRIPP GUZMÁN Provider:?Sebastián Jorge MD :[id number]???Age:69 Y???Sex:Female D ate:04/24/2025 Address:[address] [place], [place] [id number] Pcp:Stoney Bedoya MD Subjective: * Chief Complaints: * ???1. Patient presents today for GERD. * HPI: ???incontinence:? I saw Tripp in follow-up today in regard to her chronic reflux symptoms, constipation, family history of colon cancer, and some fecal incontinence. I last saw Tripp in November, at which time she underwent both upper endoscopy and colonoscopy. The upper endoscopy revealed some minimal changes of reflux but no esophagitis or Tinajero's esophagus. She was found to have a very tiny gastric remnant but no sign of any obstructions nor ulceration. Her colonoscopy that day was very limited due to a poor prep despite what she says was taking the prep the day before. Since the procedure she had stopped her omeprazole but did resume it as she was having more heartburn and thinks it helped somewhat. However she still has heartburn when she lays down at night. She denies any dysphagia. Her bowel movements are irregular and she describes occasional episodes of fecal incontinence along with urinary incontinence. She denies any signs of bleeding. She did have a CT scan of her abdomen in November which did not show any significant intra-abdominal findings other than a large amount of stool in the colon. Laboratories in November revealed hemoglobin of 10.7 with MCV of 79. Her ferritin was only 11. She does have chronic low ferritin levels dating back to at least last year. She does describe a family history of colon cancer in her mother and brother, as well as other cancers in different family members. * Medical History:?Sleep apnea --not using CPAP, Denies [place],DM,CVA,renal disease, GERD, Asthma- neubulizer, Back pain, Describes a negative colonoscopy > 10 years ago, Anxiety/Depression, Hypothyroidism, Upper endoscopy in January of 2022--this revealed a very small gastric remnant with anatomy consistent with her previous gastric bypass, as well as a small hiatal hernia. There was no evidence of any esophagitis, Tinajero's esophagus, esophageal stricture, esophageal diverticulum as had been suggested on the previous barium swallow, peptic ulcer disease, nor any abnormalities at her gastric bypass anastomosis. * Surgical History:?HIATAL HER NICKI-12/[address] Jarrell , GASTRIC BYPASS SURGERY 2006 Dr. Resendez and then a revision in approx 2016 at [facility] [place] , CERVICAL DISC SURGERY , BACK SURGERY , HYSTERECTOMY , CARPAL TUNNEL REPAIR-left , Rotator cuff-right , Nerve stimulator in back , Right foot , CCY , Left knee replacement at [facility] 2022, shoulder surgery . * Family History:?Father: dece ased.?Mother: , diagnosed with Diabetes, HTN (hypertension), Colon cancer, Heart disease, Colon polyps.?Paternal uncle: diagnosed with Colon cancer.? SISTER COLON POLYPS HTN DIABETES brother liver cancer 2 years ago 2021.? Mother and father and brother had liver cancer, colon cancer. * Social History:?Tobacco Use:?Tobacco Use/Smoking?Patient is a?nonsmoker.?Drugs/Alcohol:?Alcohol Screen?Did you have a drink containing alcohol in the past year??No,?Points?0,?Interpretation?Negative.?Miscellaneous:?Marital status: . Occupation: retired. ???Nonsmoker; no sig alcohol. * Medications:?Taking Cyanocob alamin 1000 MCG Tablet 1 tablet Injection Once a month , Taking Vitamin B 12 500 MCG Tablet 1 tablet Orally Once a day , Taking buPROPion HCl ER (XL) 300 MG Tablet Extended Release 24 Hour TAKE 1 TABLET BY MOUTH EVERY MORNING Oral , Taking Mirtazapine 30 MG Tablet TAKE 1 TABLET BY MOUTH AT BEDTIME Oral , Taking Melatonin 5 MG Tablet TAKE 1 TABLET BY MOUTH EVERY NIGHT AT BEDTIME Oral , Taking clonazePAM 1 MG Tablet Oral , Taking traMADol HCl 50 MG Tablet TAKE 1 TABLET BY MOUTH EVERY 8 HOURS NEEDED Oral , Taking Multi-Vitamins - Tablet TAKE 1 TABLET BY MOUTH EVERY DAY WITH FOOD Oral , Taking Albuterol Sulfate HFA 108 (90 Base) MCG/ACT Aerosol Solution INHALE 2 PUFFS BY MOUTH EVERY 4 TO 6 HOURS NEEDED FOR SHORTNESS OF BREATH OR WHEEZING Inhalation , Taking Levothyroxine Sodium 25 MCG Tablet Oral , Taking Vitamin D 50 MCG (2000 UT) Tablet TAKE 1 TABLET BY MOUTH EVERY DAY Oral , Taking Omeprazole 40 MG Capsule Delayed Release TAKE 1 CAPSULE BY MOUTH EVERY MORNING , Taking MiraLax (colon prep) 17 GM/SCOOP Powder 1 238Gm bottle of mixed with Gatorade or Crystal Light Orally begin at 5:00 p.m. the day before the procedure , Taking Dulcolax (colon prep) 5 MG Tablet Delayed Release take at 3:00 p.m and 7:00p.m. Orally two tablets twice a day for one day , Medication List reviewed and reconciled with the patient * Allergies:?traZODone: change d mood, Vancomycin: rash. Objective: * Vitals:?Wt: 150 lbs, Ht: 57 in, BMI: 32.46 Index, BP: 001/01 mm Hg, Temp: 98.2, Wt-k.04. Assessment: * Assessment: 1.?Gastroesophageal reflux d isease, unspecified whether esophagitis present - K21.9 (Primary)???2.?Constipation - K59.00???3.?Fecal soiling - R15.1???4.?Family history of colon cancer - Z80.0???5.?Colon cancer screening - Z12.11??? Overall, Tripp appears we ll from a clinical standpoint. She has not lost any weight. However, she does continue to have some GI symptoms. We did review the findings on both of her procedures from November. In regard to the ongoing upper GI complaints I advised her that this is in relation to her previous gastric bypass surgery in which she has a very tiny gastric remnant's and is probably having some component of bile reflux. I advised her that she could certainly continue omeprazole if she thinks it helps her but that she should also take several Tums at bedtime to try to prevent nocturnal symptoms of reflux and burning. I also advised her to be sure not to eat for a few hours before bedtime. I do not think she will need any more upper endoscopies at this time. I did recommend a repeat colonoscopy with a 2-day prep given her significant family history and a suboptimal exam in November. Her only other colonoscopy had been a long time ago, i.e. over 10 years, We did review the rationale for the colonoscopy in regard to colon cancer prevention and/or early detection. Full consent has been for this, including risks of bleeding and perforation. The procedure will be done with monitored anesthesia care. In regard to her occasional fecal incontinence I did recommend adding some Metamucil on a once or twice a day basis with a lot of water to see if that can help improve her bowel movements and emptying of the colon in the event she is having some significant constipation causing some leakage and fecal incontinence on that basis. As mentioned, her CT scan did show a lot of stool in the colon. Tripp was comfortable with this plan. Thank you again for allowing me to participate in Tripp's care. I shall continue to keep you advised of her progress. Plan: * Treatment: 2.?Constipation? Notes: Start using 2 Metamucil fiber pills once or twice every day with a lot of water to see if that helps with the BM's and the leakage.?? 3.?Family history of colon c ancer?Procedure: COLONOSCOPY 4.?Colon cancer screening?Procedure: COLONOSCOPY* With MAC. Full 2 day prep.sc hed for 07/15/25 at 12:20 pmmiralax * Immunizations:? Influenza (Not administered - Refused: Patient decision) * Procedure Codes:?64023 DIAGN OSTIC COLONOSCOPY * Preventive Medicine:? ??Urinary Incontinence:?Urinary Incontinence?Assessment:?Present,?Plan of care documented:?Yes,?Type of plan of care:?Bladder training.? ??Screenings:?Fall Risk Screening?Fall Risk Assessment:?No falls in the past year,?Screening:?No falls in the past year,?Assessment:?Not performed, no reason specified,?Plan of Care:?Not documented, no reason specified.? ??Counseling:?Care goal follow-up plan:?Above Normal BMI Follow-up?Dietary management education, guidance, and counseling,?BMI management provided?Yes.? * * The named appointment provid er may or may not be the originator of this progress note, and it is not deemed complete until electronically signed by the appointment provider. Sign off status: Pending * Provider:?Sebastián Jorge MD Date:? 025 Generated for Justo rhodes/Dennis/Elian on:?04/26/2025 02:04 PM EDT History and Physical Notes * HPI (History of Present Illness) Category Sub-Category Detail Notes Category Not es incontinence I saw Tripp in follow-up today in regard to her chronic reflux symptoms, constipation, family history of colon cancer, and some fecal incontinence. I last saw Tripp in November, at which time she underwent both upper endoscopy and colonoscopy. The upper endoscopy revealed some minimal changes of reflux but no esophagitis or Tinajero's esophagus. She was found to have a very tiny gastric remnant but no sign of any obstructions nor ulceration. Her colonoscopy that day was very limited due to a poor prep despite what she says was taking the prep the day before. Since the procedure she had stopped her omeprazole but did resume it as she was having more heartburn and thinks it helped somewhat. However she still has heartburn when she lays down at night. She denies any dysphagia. Her bowel movements are irregular and she describes occasional episodes of fecal incontinence along with urinary incontinence. She denies any signs of bleeding. She did have a CT scan of her abdomen in November which did not show any significant intra-abdominal findings other than a large amount of stool in the colon. Laboratories in November revealed hemoglobin of 10.7 with MCV of 79. Her ferritin was only 11. She does have chronic low ferritin levels dating back to at least last year. She does describe a family history of colon cancer in her mother and brother, as well as other cancers in different family members.
[2025-04-26 17:02] LABS: MANUAL DIFF FLAG NO
[2025-04-26 17:21] LABS: Basophils Percent Auto 0.6 % (0-2); Eosinophils Absolute Auto 0.1 X10*3/uL (0.0-0.4); Eosinophils Percent Auto 1.5 % (0-4); Hemoglobin 12.3 g/dl (12.0-16.0); Imm Gran Abs Auto 0.01 X10*3/uL (0.00-0.03); Imm Gran Pct Auto 0.2 % (0.0-0.4); Lymphocytes Percent Auto 37.2 % (20-40); Mean Corpuscular HGB Conc 31.5 g/dl (31.0-35.0); Mean Corpuscular Hemoglobin 26.6 pg (27.0-33.0); Mean Corpuscular Volume 84.2 fL (80.0-98.0); Mean Platelet Volume 10.8 fL (9.4-12.3); Monocytes Absolute Auto 0.6 X10*3/uL (0.1-1.2); Monocytes Percent Auto 10.5 % (2-11); Neutrophils Absolute Auto 2.6 x10*3/uL (2.0-8.3); Platelet Count 199 X10*3/uL (160-400); Red Blood Count 4.63 X10*6/uL (4.20-5.50); Red Cell Distribution Width 14.4 % (11.0-16.0); White Blood Count 5.2 X10*3/uL (4.8-10.8)
== END 2025-04-26 14:01 | disposition home or self-care (01) ==
LOC: HO.HHCL 14:00
PROVIDERS: Visit Provider Nurse Practitioner Primary Care
DX: N39.0 Urinary tract infection, site not specified (principal); R53.83 Other fatigue
CPT/HCPCS: 36415; 85025; 87086; 87088; 87186

== ENCOUNTER 2025-05-28 16:28 | Outpatient (REF) | payer OTHER, SELFPAY ==
--- OUTSIDE RECORDS SUMMARY | 2025-04-16 05:50 | XMS_ITS ---
Author Organization [facility] Address [address] [place] [address] Care Team Providers Care Trade Promotion Analyst Name Role Phone Name Stoney BELTRAN Primary Care Provider Sebastián Vu Unavailable [phone] Chrystal BELTRAN, Nessa Unavailable Unavailable REASON FOR VISIT gerd Encounters Encounter Location Date Provider Diagnosis [facility] [address] [facility] [address] [place] [address] 04/16/2025 Sebastián Jorge Plan Of Treatment Next Appt Details Provider Name:Sebastián Jorge , 07/15/2025 11:20:00 AM, [address], [address], [place], [address], Progress Notes * TRIPP GUZMÁNDOB:[birth year] (70 yo F)Acc No.[id number]:04/16/2025 Progress Notes Patient: Keiko RITTER TRIPP Provider: Kolby Jorge MD :1955 A ge:69 Y S ex:Female Date:04/16/2025 Address:[address] [place] [address] Pcp:Stoney Bedoya MD Subjective: * Chief Complaints: [...] MD Date: 0 04/16/2025 Generated for Justo rhodes/Dennis/Elian on: 0 05/28/2025 10:37 AM EDT
--- OUTSIDE RECORDS SUMMARY | 2025-05-28 16:31 | XMS_ITS | Encounter Summary ---
Author Organization [employer] Address [address] [place] [address] [address], [place] [address] Care Team Providers Care Upset Welding Machine Operator Name Role Phone Name, Stoney BELTRAN Primary Care Provider [phone] Reason for Visit * Reason Onset Date Comments Prior Authorization 06/13/2023 Encounter Details Date Type Department Care Team ([facility] st Contact Info) Description 06/13/2023 Telephone [facility] [address] [place] [address] Orlin Bulreson, DDS [address] [place] [address] Prior Authorization Social History Tobacco Use Types Packs/Day Years Used Date Smoking Tobacco: Never Passive Smoke Exposure: Never Smokeless Tobacco: Never Alcohol Use Standard Drinks/Week Comments Never 0 (1 standard drink = 0.6 oz pur e alcohol) Depression Answer Date Recorded Patient Health Questionnaire-9 Score 16 04/20/2023 Depression Answer Date Recorded Patient Health Questionnaire-2 Score 6 04/20/2023 Comments Unknown Sex and Gender Information Value Date Recorded Sex Assigned at Female 09/27/2022 10:18 AM EDT Legal Sex Female 10:18 AM EDT Gender Identity Female 09/27/2022 10:18 AM EDT Sexual Orientation Straight 09/27/2022 10 :18 AM EDT COVID-19 Exposure Response Date Recorded In the last 10 days, have yo u been in contact with someone who was confirmed or suspected to have Coronavirus/COVID-19? No / Unsure 06/01/2023 9:58 AM EDT documented as of this encounter Miscellaneous Notes * Telephone Encounter - Neli Charles 06/13/2023 2:50 PM EDT Patient called in stating that he wanted to know the status of her Prior Authorization for new partials. She said she contacted the insurance and they state they had not received a PA for patient. She states that partial she currently has are cutting up her gum and she spoke to the dr about gettinga new pair. documented in this encounter Plan of Treatment Upcoming Encounters Date Type Department Care Team (Late st Contact Info) Description 06/27/2025 9:30 AM EDT Office Visit [facility] [address] [place] [address] Jess Bray DDS [address] [place] [address] documented as of this encounter Visit Diagnoses Not on filedocumented in this encounter Additional Health Concerns Assessment Noted Time PHQ-9 Depression Total Score: 16 023 3:49 PM EDT documented as of this encounter Care Teams Upset Welding Machine Operator Relationship Specialty Start Date End Date Name, MD Stoney [address] [place] [address] PCP - General Family Medicine 03/04/16 documented as of this encounter
== END 2025-05-28 16:29 | disposition home or self-care (01) ==
LOC: HO.HHCLNP 16:28
PROVIDERS: Visit Provider Emergency Medicine
DX: R39.9 Unspecified symptoms and signs involving the genitourinary system (principal)
CPT/HCPCS: 87086; 87088; 87186

== ENCOUNTER 2025-06-11 09:33 | Outpatient (REF) | payer OTHER, SELFPAY ==
--- OUTSIDE RECORDS SUMMARY | 2025-04-16 05:50 | XMS_ITS ---
Author Organization [facility] Address [address] [place] [address] Care Team Providers Care Waiter/Waitress Buffet Name Role Phone Name Stoney BELTRAN Primary Care Provider Sebastián Vu Unavailable [phone] Chrystal BELTRAN, Nessa Unavailable Unavailable REASON FOR VISIT gerd Encounters Encounter Location Date Provider Diagnosis [facility] [address] [place] [phone] 04/16/2025 Sebastián Jorge Plan Of Treatment Next Appt Details Provider Name:Sebastián Jorge , 07/15/2025 11:20:00 AM, [address] [place] [address] , [place], [place], [phone], Progress Notes * TRIPP GUZMÁNDOB:[birth year] (70 yo F)Acc No.[id number]:04/16/2025 Progress Notes Patient: Keiko BANERJEEJACKY TRIPP Provider: Kolby Jorge MD :1955 A ge:69 Y S ex:Female Date:04/16/2025 Address:[address] [place] [address] Pcp:Stoney Bedoya MD Subjective: * Chief Complaints: [...] 04/16/2025 Generated for Justo rhodes/Dennis/Jamiaitting on: 0 06/11/2025 10:10 AM EDT
--- OUTSIDE RECORDS SUMMARY | 2025-06-11 10:11 | XMS_ITS | Encounter Summary ---
Author Organization [employer] Address [address] [place] [address] [place], [place] [address] Care Team Providers Care Disability Attorney Name Role Phone Name, Stoney BELTRAN Primary Care Provider [phone] Reason for Visit * Reason Onset Date Comments Prior Authorization 06/13/2023 Encounter Details Date Type Department Care Team ([facility] st Contact Info) Description 06/13/2023 Telephone [facility] [address] [place] [address] Orlin Burleson, DDS [address] [place] [address] Prior Authorization Social History Tobacco Use Types [...] Description 06/27/2025 9:30 AM EDT Office Visit [facility] [address] [place] [address] Jess Bray DDS [address] [place] [address] documented as of this encounter Visit Diagnoses Not on filedocumented in this encounter Additional Health Concerns Assessment Noted Time PHQ-9 Depression Total Score: 16 023 3:49 PM EDT documented as of this encounter Care Teams Disability Attorney Relationship Specialty Start Date End Date Name, MD Stoney [address] [place] [address] PCP - General Family Medicine 03/04/16 documented as of this encounter
[2025-06-11 11:06] LABS: B Type Natriuretic Peptide 85 pg/mL (<100)
[2025-06-11 11:09] LABS: Anion Gap 8 (12-20); Blood Urea Nitrogen 10 mg/dL (9-16); Calcium 8.7 mg/dL (8.4-10.2); Carbon Dioxide 27 mmol/L (22-29); Chloride 113 mmol/L (96-108); Estimated Glomerular Filt Rate > 60; Potassium 3.8 mmol/L (3.3-5.1); Sodium 144 mmol/L (135-145)
== END 2025-06-11 09:34 | disposition home or self-care (01) ==
LOC: HO.LAB 09:33
PROVIDERS: PCP Internal Medicine Geriatric Medicine; Visit Provider Internal Medicine Cardiovascular Disease
DX: J44.9 Chronic obstructive pulmonary disease, unspecified (principal)
CPT/HCPCS: 36415; 80048; 83880

== ENCOUNTER 2025-06-13 19:26 | Emergency (ER) | payer OTHER, SELFPAY ==
--- OUTSIDE RECORDS SUMMARY | 2025-04-16 05:50 | XMS_ITS ---
Author Organization [facility] Address [address] [place] [address] Care Team Providers Care Commissioner Of Officials Name Role Phone Name Stoney BELTRAN Primary Care Provider Sebastián Vu Unavailable [phone] Chrystal BELTRAN, Nessa Unavailable Unavailable REASON FOR VISIT gerd Encounters Encounter Location Date Provider Diagnosis [facility] [address] [place] [phone] 04/16/2025 Sebastián Jorge Plan Of Treatment Next Appt Details Provider Name:Sebastián Jorge , 07/15/2025 11:20:00 AM, [address] [place] [address] , [place], [place], [phone], Progress Notes * TRIPP GUZMÁNDOB:[birth year] (70 yo F)Acc No.[id number]:04/16/2025 Progress Notes Patient: Keiko BANERJEEJACKY TRIPP Provider: Kolby Jorge MD :1955 A ge:69 Y S ex:Female Date:04/16/2025 Address:[address] [place] [address] Pcp:Stoney Bedoya MD Subjective: * Chief Complaints: * 1 . Gerd. * Medical History: Objective: * Vitals: Assessment: Plan: * Treatment: * * The named appointment provid er may or may not be the originator of this progress note, and it is not deemed complete until electronically signed by the appointment provider. Sign off status: Pending * Provider: Kolby Jorge MD Date: 0 04/16/2025 Generated for Justo rhodes/Dennis/Jamiaitting on: 0 06/13/2025 08:07 PM EDT
--- NOTE | ~2025-06-13 | XR_ITS ---
CLINICAL HISTORY: chest pain Two views of the chest. COMPARISON: None provided. FINDINGS: Spinal stimulator leads overlie the cervical and thoracic spine. Anterior cervical fusion hardware along the lower cervical spine. Tendon anchors within the right humeral head. Partially visualized posterior spinal fixation hardware along the mid to lower lumbar spine. Low lung volumes. Normal heart size. No consolidation. Crowding of the bronchovascular markings, likely secondary to low lung volumes. No pleural effusion. No pneumothorax. Air-filled loops of bowel within the left upper quadrant. IMPRESSION: 1. Low lung volumes. No consolidation. This document has been electronically signed by: Venkat Mionr MD on 06/13/2025 20:05:18
--- NOTE | ~2025-06-13 | CT_ITS ---
CLINICAL HISTORY: Chest pain CT angiography chest with contrast. 3D Postprocessing. Comparison: Chest x-ray 06/13/2025, CT abdomen and pelvis 12/10/2024 Findings: No definite acute pulmonary embolism identified. Central pulmonary arteries are normal caliber. No thoracic aortic dissection. No focal airspace consolidation. No pleural effusion. No pneumothorax. Central airways are patent. Heart is mildly enlarged. No pericardial effusion. Minimal multivessel coronary artery calcifications. Unremarkable esophagus. No pathologically enlarged lymph nodes. No acute findings within visualized lower neck. Partially visualized postop changes following Rebecca-en-Y gastric bypass surgery and cholecystectomy. No acute osseous abnormality. No lytic or sclerotic osseous lesions. Dorsal column spinal stimulator device is in place. Partially visualized postop changes of the lower cervical spine. Impression: 1. No evidence of acute pulmonary embolism. 2. No focal consolidation, pleural effusion or pneumothorax. 3. Additional findings as above. This document has been electronically signed by: Jose Castorena MD on 06/14/2025 02:06:11
--- NOTE | 2025-06-13 19:30 | ECG_ITS ---
Test Reason : CHEST TIGHTNESS Blood Pressure : */* mmHG Vent. Rate : 103 BPM Atrial Rate : 103 BPM P-R Int : 164 ms QRS Dur : 56 ms QT Int : 332 ms P-R-T Axes : -29 -25 -24 degrees QTcB Int : 434 ms Sinus tachycardia Inferior infarct , age undetermined Abnormal ECG When compared with ECG of 16-Jun-2017 13:21, Vent. rate has increased by 36 bpm QRS axis Shifted left Inferior infarct is now Present Referred By: Janneth May Electronically Signed By: ABRAHAM MARTINEZ
[2025-06-13 19:38] VITALS: BP 119/76; PULSE 109; RESP 18; TEMP 36.3; O2SAT 98; BMI 30.5
--- NOTE | 2025-06-13 19:40 | ED.GENADULT ---
HPI - General Adult General Chief complaint: Chest Pain Stated complaint: nauseous, tightness chest, fatigue, abd pain, SOB Time Seen by Provider: 06/13/25 22:18 Source: patient Mode of arrival: ambulatory Limitations: no limitations History of Present Illness ED Provider: HPI narrative: Patient's history of asthma had a flare-up 1 week ago to prednisone comes here for chest pain started at 18:45 while started [place] pain is pressure-like feeling comes and goes for last 5 hours with no diaphoresis or nausea vomiting Related Data Home Medications ?Medication ?Instructions ?Recorded ?Confirmed bisacodyl 5 mg tablet,delayed 10 mg PO BID PRN Constipation 08/28/20 12/12/24 release bupropion HCl 300 mg 24 hr tablet, 300 mg PO QAM 08/28/20 12/12/24 extended release clonazepam 1 mg tablet 1 mg PO BID 08/28/20 12/12/24 levothyroxine 25 mcg tablet 25 mcg PO DAILY 08/28/20 12/12/24 melatonin 5 mg tablet 5 mg PO BEDTIME 08/28/20 12/12/24 mirtazapine 30 mg tablet 30 mg PO BEDTIME 08/28/20 12/12/24 tramadol 50 mg tablet 50 mg PO TID PRN Pain 08/28/20 12/12/24 vitamin A 3,000 mcg (10,000 unit) 10,000 unit PO DAILY 05/05/22 12/12/24 capsule calcium 600 mg (as 1 tab PO DAILY 06/24/22 12/12/24 carbonate)-vitamin D3 20 mcg (800 unit) tablet acetaminophen 500 mg tablet 1,000 mg PO Q8H PRN pain 09/21/22 12/12/24 cholecalciferol (vitamin D3) 50 50 mcg PO DAILY 09/21/22 12/12/24 mcg (2,000 unit) tablet famotidine 20 mg tablet 20 mg PO BID 09/21/22 12/12/24 ferrous sulfate 325 mg (65 mg 325 mg PO DAILY 09/21/22 12/12/24 iron) tablet folic acid 1 mg tablet 1 mg PO DAILY 09/21/22 12/12/24 multivitamin 1 tab PO DAILY 09/21/22 12/12/24 cyanocobalamin (vitamin B-12) 1,000 mcg PO DAILY 01/18/23 12/12/24 1,000 mcg tablet omeprazole 40 mg capsule,delayed 40 mg PO DAILY 01/18/23 12/12/24 release B12 IM 12/14/24 Previous Rx's ?Medication ?Instructions ?Recorded albuterol sulfate 90 mcg/actuation 2 puff inhalation Q4-6H PRN 08/21/21 aerosol inhaler shortness of breath or wheezing 30 days #1 ea furosemide 40 mg tablet (Lasix) 40 mg PO DAILY #30 tabs 08/28/24 ipratropium 0.5 mg-albuterol 3 mg 3 ml inhalation Q4-6H PRN wheezing 09/26/24 (2.5 mg base)/3 mL nebulization 30 days #180 mL soln albuterol sulfate 2.5 mg/3 mL 2.5 mg (3 mL) inhalation DAILY #30 03/29/25 (0.083 %) solution for nebulization mL arformoterol 15 mcg/2 mL solution 2 ml inhalation BID #60 mL 03/29/25 for nebulization (Brovana) budesonide 0.25 mg/2 mL suspension 0.25 mg (2 mL) inhalation BID #60 03/29/25 for nebulization mL cefuroxime axetil 500 mg tablet 500 mg PO BID 7 days #14 tabs 06/13/25 Allergies Allergy/AdvReac Type Severity Reaction Status Date / Time vancomycin (VANCOMYCIN) Allergy Intermediate FACIAL Verified 06/13/25 19:39 FLUSHING/ITCHING trazodone (TRAZODONE) Allergy Unknown PER H&P Verified 06/13/25 19:39 Review of Systems Review of Systems: Yes all other systems are reviewed and are negative PMFSH Past Medical History Medical History Hernia of enterostomy Anemia Environmental allergies Moderate persistent asthma Dysphagia GERD (gastroesophageal reflux disease) Malabsorption due to intolerance, not elsewhere classified LUQ abdominal tenderness IBS (irritable bowel syndrome) Herniated disc Anxiety Depression Surgical History History of total left knee replacement (TKR) History of endoscopy Hx of hernia repair H/O neck surgery Hx of hammer toe correction H/O colonoscopy History of bunionectomy S/P rotator cuff repair History of Rebecca-en-Y gastric bypass History of back surgery H/O laminectomy History of bladder surgery Hx laparoscopic cholecystectomy History of partial hysterectomy Family History Family History Father Alcohol abuse Cancer Diabetes Mother Colon cancer Liver cancer Diabetes Brother Cancer Social History Social History Household Members: Family Household Members Other:: grandchildren and daughter Housing: House Alcohol intake: current Alcohol intake frequency: does not drink Patient Tobacco Use Status: Former Tobacco user Years Smoked: 5 +/- Advance Directives: No Advance Directives Information Provided: No Do you have a plan to hurt others: No Plan service: No Current occupational status: retired Current occupation: Right Handed Physical Exam ED Exam Exam: Appearance: Alert. Oriented X3. No acute distress. Eyes: PERRLA, No Nystagmus ENT: Pharynx normal. Oral Mucosa moist Neck: Normal inspection. Neck supple. CVS: Normal heart rate and rhythm. Pulses normal. Respiratory: No respiratory distress. Equal air entry bilateral, no wheezing/rales/rhonchi Abdomen: Soft and nontender. Bowel sounds are present, no mass palpable, no CVA tenderness Skin: Skin warm and dry. Normal skin color. Normal skin turgor. Extremities: No lower extremity edema. No calf tenderness Neuro: Oriented X 3. No motor deficit. No sensory deficit.No cerebellar signs , cranial nerves II-XII intact Vital Signs: Vital Signs - 24 hr 06/13/25 19:38 06/13/25 20:15 06/13/25 22:07 Temperature 97.4 F 98.1 F 97.8 F Pulse Rate 109 H 112 H 115 H Respiratory Rate 18 20 14 Blood Pressure 119/76 115/70 102/61 Pulse Oximetry 98 97 96 Oxygen Delivery Method Room Air Room Air Room Air 06/13/25 23:45 06/13/25 23:55 Temperature 98 F Pulse Rate 100 96 Respiratory Rate 16 18 Blood Pressure 112/62 Pulse Oximetry 96 Oxygen Delivery Method Room Air BMI result Body Mass Index 30.5 Appearance: Alert. Oriented X3. No acute distress. Eyes: PERRLA, No Nystagmus ENT: Pharynx normal. Oral Mucosa moist Neck: Normal inspection. Neck supple. CVS: Normal heart rate and rhythm. Pulses normal. Respiratory: No respiratory distress. Equal air entry bilateral, bilateral wheezing with frequent cough while taking deep breaths Abdomen: Soft and nontender. Bowel sounds are present, no mass palpable, no CVA tenderness Skin: Skin warm and dry. Normal skin color. Normal skin turgor. Extremities: No lower extremity edema. No calf tenderness Neuro: Oriented X 3. No motor deficit. No sensory deficit.No cerebellar signs , cranial nerves II-XII intact Course Course Course Narrative: This is a rapid medical exam performed by Mark May NP: Additional HPI, ROS, PE not included below will be deferred to primary provider. Patient is a 70-year-old female presenting with complaint of chest tightness which began after going to her car after she was at a [place]. Also complains of shortness of breath, nausea, fatigue and abd pain. Plan: EKG, labs, CXR Medications Administered Discontinued Medications Generic Name Dose Route Start Last Admin Trade Name Freq PRN Reason Stop Dose Admin Cefuroxime Axetil 500 mg 06/13/25 23:33 06/13/25 23:43 Cefuroxime Axetil 500 Mg Tablet PO 06/13/25 23:34 500 mg ONCE ONE Administration Albuterol Sulfate 2.5 mg/ 0 mg 06/13/25 23:40 06/13/25 23:52 Albuterol/Ipratropium 3 ml INHALE 06/13/25 23:41 1 dose ONCE ONE Administration Iohexol 65 ml 06/14/25 01:14 06/14/25 01:14 Iohexol 350 Mg/Ml 100 Ml Infus..Btl IV 06/14/25 01:15 65 ml ONCE ONE Administration Medical Decision Making Medical Decision Making [facility] Narrative: Patient with no known coronary artery disease does have history of asthma comes for chest pain pressure-like feeling since 18:45 EKG without any ischemic changes initial troponin and repeat x2 negative. D-dimer 298 slightly elevated CTA chest was done which is negative for PE patient is advised to follow up with PCP for further evaluation Differential Diagnosis Differential Diagnoses: The differential diagnosis associated with the presentation includes Admission/Observation Consideration of admission/observation: Escalation of care including admission/observation considered Lab Data [facility] Lab Attestation statement: I reviewed the patient's lab results. 06/13/25 19:52 07/17/25 19:52 Labs: Lab Results 06/13/25 06/13/25 06/13/25 Range/Units 19:52 22:28 23:50 WBC 12.3 H (4.8-10.8) X10*3/uL RBC 5.02 (4.20-5.50) X10*6/uL Hgb 13.7 (12.0-16.0) g/dl Hct 43.2 (37.0-47.0) % MCV 86.1 (80.0-98.0) fL MCH 27.3 (27.0-33.0) pg MCHC 31.7 (31.0-35.0) g/dl RDW 13.9 (11.0-16.0) % Plt Count 310 D (160-400) X10*3/uL MPV 11.1 (9.4-12.3) fL Immature Gran % (Auto) 0.3 (0.0-0.4) % Neut % (Auto) 83.5 H (45-73) % Lymph % (Auto) 11.2 L (20-40) % [place] % (Auto) 4.5 (2-11) % Eos % (Auto) 0.1 (0-4) % Baso % (Auto) 0.4 (0-2) % Lymph # (Auto) 1.4 (1.2-4.9) X10*3/uL [place] # (Auto) 0.6 (0.1-1.2) X10*3/uL Eos # (Auto) 0.0 (0.0-0.4) X10*3/uL Baso # (Auto) 0.1 (0.0-0.2) X10*3/uL Abs Immat Gran (auto) 0.04 H (0.00-0.03) X10*3/uL Absolute Neuts (auto) 10.2 H (2.0-8.3) x10*3/uL Absolute Nucleated RBC 0.000 (0.0-0.012) X10*3/uL Nucleated RBC % (auto) 0.0 (0.0-0.2) /100WBC D-Dimer High Sensitivty 298 NG/ML Sodium 143 (135-145) mmol/L Potassium 4.0 (3.3-5.1) mmol/L Chloride 107 (96-108) mmol/L Carbon Dioxide 28 (22-29) mmol/L Anion Gap 12 (12-20) BUN 12 (9-16) mg/dL Creatinine 0.78 (0.5-1.4) mg/dL Estim Creat Clear Calc 55.6 Estimated GFR > 60 Random Glucose 120 H (60-115) mg/dL Calcium 9.4 D (8.4-10.2) mg/dL Total Bilirubin 0.3 (0.0-1.0) mg/dL AST 29 (5-31) U/L ALT 42 H (0-31) U/L Alkaline Phosphatase 111 (39-117) U/L Troponin I High Sens < 2.7 < 2.7 (<3.5-17.0) ng/L Total Protein 8.0 (6.5-8.0) g/dL Albumin 4.9 (3.5-5.0) g/dL Influenza Type A (PCR) NEGATIVE (Negative) Influenza Type B (PCR) NEGATIVE (Negative) RSV RNA Qual (PCR) NEGATIVE (Negative) SARS-CoV-2 RNA (RT-PCR) NEGATIVE (Negative) 06/14/25 Range/Units 00:47 WBC (4.8-10.8) X10*3/uL RBC (4.20-5.50) X10*6/uL Hgb (12.0-16.0) g/dl Hct (37.0-47.0) % MCV (80.0-98.0) fL MCH (27.0-33.0) pg MCHC (31.0-35.0) g/dl RDW (11.0-16.0) % Plt Count (160-400) X10*3/uL MPV (9.4-12.3) fL Immature Gran % (Auto) (0.0-0.4) % Neut % (Auto) (45-73) % Lymph % (Auto) (20-40) % [place] % (Auto) (2-11) % Eos % (Auto) (0-4) % Baso % (Auto) (0-2) % Lymph # (Auto) (1.2-4.9) X10*3/uL [place] # (Auto) (0.1-1.2) X10*3/uL Eos # (Auto) (0.0-0.4) X10*3/uL Baso # (Auto) (0.0-0.2) X10*3/uL Abs Immat Gran (auto) (0.00-0.03) X10*3/uL Absolute Neuts (auto) (2.0-8.3) x10*3/uL Absolute Nucleated RBC (0.0-0.012) X10*3/uL Nucleated RBC % (auto) (0.0-0.2) /100WBC D-Dimer High Sensitivty NG/ML Sodium (135-145) mmol/L Potassium (3.3-5.1) mmol/L Chloride (96-108) mmol/L Carbon Dioxide (22-29) mmol/L Anion Gap (12-20) BUN (9-16) mg/dL Creatinine (0.5-1.4) mg/dL Estim Creat Clear Calc Estimated GFR Random Glucose (60-115) mg/dL Calcium (8.4-10.2) mg/dL Total Bilirubin (0.0-1.0) mg/dL AST (5-31) U/L ALT (0-31) U/L Alkaline Phosphatase (39-117) U/L Troponin I High Sens < 2.7 (<3.5-17.0) ng/L Total Protein (6.5-8.0) g/dL Albumin (3.5-5.0) g/dL Influenza Type A (PCR) (Negative) Influenza Type B (PCR) (Negative) RSV RNA Qual (PCR) (Negative) SARS-CoV-2 RNA (RT-PCR) (Negative) Independent Interpretation I performed an independent interpretation of an: EKG and CT Scan Interpretation: Sinus tachycardia with heart rate 103 beats per minute normal interval normal axis Q-wave in inferior leads no acute STT wave changes no acute ischemia Radiology Impression Discussion of test interpretation with radiology: I have reviewed the radiologist's reading. Radiologist Impression: CT angiography chest with contrast. 3D Postprocessing. Comparison: Chest x-ray 06/13/2025, CT abdomen and pelvis 12/10/2024 Findings: No definite acute pulmonary embolism identified. Central pulmonary arteries are normal caliber. No thoracic aortic dissection. No focal airspace consolidation. No pleural effusion. No pneumothorax. Central airways are patent. Heart is mildly enlarged. No pericardial effusion. Minimal multivessel coronary artery calcifications. Unremarkable esophagus. No pathologically enlarged lymph nodes. No acute findings within visualized lower neck. Partially visualized postop changes following Rebecca-en-Y gastric bypass surgery and cholecystectomy. No acute osseous abnormality. No lytic or sclerotic osseous lesions. Dorsal column spinal stimulator device is in place. Partially visualized postop changes of the lower cervical spine. Impression: 1. No evidence of acute pulmonary embolism. 2. No focal consolidation, pleural effusion or pneumothorax. 3. Additional findings as above. Discharge Plan Discharge Clinical Impression: Chest pain, Bronchitis Patient Disposition: Home, Self-Care Instructions: Chest Pain (ED), Acute Bronchitis (ED) Additional Instructions: Your chest pain is likely musculoskeletal followup with your PCP for further evaluation You have acute bronchitis causing the cough need antibiotics as prescribed and follow up with the PCP continue to use your inhaler Prescriptions: New cefuroxime axetil 500 mg tablet 500 mg PO BID 7 Days Qty: 14 0RF No Action furosemide [Lasix] 40 mg tablet 40 mg PO DAILY Qty: 30 3RF ipratropium-albuterol 0.5 mg-3 mg(2.5 mg base)/3 mL solution for nebulization 3 ml inhalation Q4-6H PRN (Reason: wheezing) 30 Days Qty: 180 6RF arformoterol [Brovana] 15 mcg/2 mL solution for nebulization 2 ml inhalation BID Qty: 60 11RF albuterol sulfate 2.5 mg /3 mL (0.083 %) solution for nebulization 2.5 mg inhalation DAILY Qty: 30 11RF budesonide 0.25 mg/2 mL suspension for nebulization 0.25 mg inhalation BID Qty: 60 11RF B12 IM levothyroxine 25 mcg tablet 25 mcg PO DAILY bisacodyl 5 mg tablet,delayed release (DR/EC) 10 mg PO BID PRN (Reason: Constipation) melatonin 5 mg tablet 5 mg PO BEDTIME mirtazapine 30 mg tablet 30 mg PO BEDTIME clonazepam 1 mg tablet 1 mg PO BID tramadol 50 mg tablet 50 mg PO TID PRN (Reason: Pain) bupropion HCl 300 mg tablet extended release 24 hr 300 mg PO QAM vitamin A 10,000 unit capsule 10,000 unit PO DAILY calcium carbonate-vitamin D3 600 mg(1,500mg) -800 unit tablet 1 tab PO DAILY omeprazole 40 mg capsule,delayed release(DR/EC) 40 mg PO DAILY cyanocobalamin (vitamin B-12) 1,000 mcg tablet 1,000 mcg PO DAILY albuterol sulfate 90 mcg/actuation HFA aerosol inhaler 2 puff inhalation Q4-6H PRN (Reason: shortness of breath or wheezing) 30 Days Qty: 1 3RF famotidine 20 mg tablet 20 mg PO BID folic acid 1 mg tablet 1 mg PO DAILY cholecalciferol (vitamin D3) 50 mcg (2,000 unit) tablet 50 mcg PO DAILY acetaminophen 500 mg tablet 1,000 mg PO Q8H PRN (Reason: pain) ferrous sulfate 325 mg (65 mg iron) tablet 325 mg PO DAILY multivitamin Tablet 1 tab PO DAILY Print Language: Irish
--- NOTE | 2025-06-13 19:47 | MHC.EDTECH ---
Called patient from triage to do blood work, patient in xrays at this moment.
[2025-06-13 20:04] LABS: MANUAL DIFF FLAG NO
[2025-06-13 20:15] VITALS: BP 115/70; PULSE 112; RESP 20; TEMP 36.7; O2SAT 97
[2025-06-13 20:22] LABS: Alanine Aminotransferase 42 U/L (0-31); Albumin Level 4.9 g/dL (3.5-5.0); Alkaline Phosphatase 111 U/L (39-117); Anion Gap 12 (12-20); Aspartate Amino Transferase 29 U/L (5-31); Blood Urea Nitrogen 12 mg/dL (9-16); Calcium 9.4 mg/dL (8.4-10.2); Carbon Dioxide 28 mmol/L (22-29); Chloride 107 mmol/L (96-108); Creatinine Clr Calc Pharmacy 55.6; Estimated Glomerular Filt Rate > 60; Potassium 4.0 mmol/L (3.3-5.1); Sodium 143 mmol/L (135-145); Total Protein 8.0 g/dL (6.5-8.0)
[2025-06-13 20:28] LABS: Hematocrit 43.2 % (37.0-47.0); Hemoglobin 13.7 g/dl (12.0-16.0); Imm Gran Abs Auto 0.04 X10*3/uL (0.00-0.03); Imm Gran Pct Auto 0.3 % (0.0-0.4); Lymphocytes Absolute Auto 1.4 X10*3/uL (1.2-4.9); Mean Corpuscular HGB Conc 31.7 g/dl (31.0-35.0); Mean Corpuscular Hemoglobin 27.3 pg (27.0-33.0); Mean Corpuscular Volume 86.1 fL (80.0-98.0); NRBC Abs Auto 0.000 X10*3/uL (0.0-0.012); NRBC Pct Auto 0.0 /100WBC (0.0-0.2); Platelet Count 310 X10*3/uL (160-400); Red Blood Count 5.02 X10*6/uL (4.20-5.50); White Blood Count 12.3 X10*3/uL (4.8-10.8)
[2025-06-13 20:32] LABS: Troponin-I High Sensitivity < 2.7 ng/L (<3.5-17.0)
[2025-06-13 20:43] LABS: Resp Syncy Virus RNA Qual PCR NEGATIVE (Negative); SARS COV2 PCR INHOUSE NEGATIVE (Negative)
[2025-06-13 22:07] VITALS: BP 102/61; PULSE 115; RESP 14; TEMP 36.6; O2SAT 96
[2025-06-13 22:53] LABS: Troponin-I High Sensitivity < 2.7 ng/L (<3.5-17.0)
[2025-06-13 23:45] VITALS: BP 112/62; PULSE 100; RESP 16; TEMP 36.6; O2SAT 96
[2025-06-13] MEDS: Albuterol Sulfate 2.5 MG, Albuterol/Iprat 2.5/0.5MG 3 ML 3 ML INHALE (23:52)
[2025-06-13 23:55] VITALS: PULSE 96; RESP 18; O2SAT 97
[2025-06-14 00:07] LABS: D Dimer High Sensitivity 298 NG/ML
[2025-06-14] MEDS: iohexoL 350 MG/ML 100 ML INFUS..BTL 65 ML IV (01:14)
[2025-06-14 01:19] LABS: Troponin-I High Sensitivity < 2.7 ng/L (<3.5-17.0)
[2025-06-14 02:54] VITALS: BP 116/62; PULSE 96; RESP 18; TEMP 36.8; O2SAT 96
== END 2025-06-14 02:56 | disposition home or self-care (01) ==
PROVIDERS: Internal Medicine; Registered Nurse Emergency; Emergency Provider Emergency Medicine
DX: J40 Bronchitis, not specified as acute or chronic (principal); R07.89 Other chest pain; R10.2 Pelvic and perineal pain; R06.02 Shortness of breath; R11.2 Nausea with vomiting, unspecified; Z79.899 Other long term (current) drug therapy; Z03.818 Encounter for observation for suspected exposure to other biological agents ruled out
CPT/HCPCS: 36415; 71046; 71275; 80053; 84484; 85025; 85379; 87637; 93005; 94640; 99285; Q9967

== ENCOUNTER → 2025-06-13 19:30 | Outpatient (BNV) | payer OTHER, SELFPAY | PROVIDERS: Emergency Provider Emergency Medicine; Visit Provider Internal Medicine | DX: R00.0 Tachycardia, unspecified (principal) | CPT/HCPCS: 93010 ==

== ENCOUNTER → 2025-06-13 19:40 | Outpatient (BNV) | payer OTHER, SELFPAY | PROVIDERS: Visit Provider Radiology Diagnostic Radiology | DX: J98.4 Other disorders of lung (principal) | CPT/HCPCS: 71046 ==

== ENCOUNTER → 2025-06-14 00:36 | Outpatient (BNV) | payer OTHER, SELFPAY | PROVIDERS: Emergency Provider Emergency Medicine; Visit Provider Radiology Diagnostic Radiology | DX: R07.9 Chest pain, unspecified (principal) | CPT/HCPCS: 71275 ==

== ENCOUNTER → 2025-06-26 07:37 | Outpatient (REF) | payer OTHER, SELFPAY ==
--- NOTE | 2025-06-26 07:40 | CA_ITS ---
Transthoracic Echocardiogram Patient (Last, First, Middle): Flory Perry, Gender: Female Date of : 1955 Age: 70 Procedure Date: 06/26/2025 Procedure Type: Transthoracic Echocardiogram Location: OP Height: 147.32 cm Weight: 68.04 kg BSA: 1.61 m2 Heart Rate: bpm BP: 120 / 82 mmHg Bath Tester: Referring MD: Donavon Giles MD Flow Nurse: Bryce Marmolejo MD Symptoms: I42.9 Cardiomyopathy Study Quality: Adequate ECG Rhythm: Sinus Conclusions: - 1. Normal LV ejection fraction 55-60% with impaired relaxation filling pattern 2. Normal cardiac valvular Dopplers 3. Mildly dilated ascending aorta at 3.9 cm 4. Normal RV systolic pressure 5. No gross pericardial effusion Findings Left Ventricle Normal left ventricular size, thickness, and systolic function. The visually estimated ejection fraction is between 55-60%. Spectral Doppler is indicative of an impaired relaxation filling pattern. E/E prime ratio is between 8 and 15 consistent with indeterminate filling pressures. Right Ventricle Normal right ventricular cavity size and systolic function. Atria The left atrium is likely dilated. There is no evidence of interatrial shunt. The right atrium is normal in size. Aortic Valve Normal aortic valve structure and function. There is no aortic valve stenosis. There is no aortic valve regurgitation. Mitral Valve Normal mitral valve structure and function. There is trace mitral valve regurgitation. There is no mitral valve stenosis. Pulmonic Valve The pulmonic valve is likely normal. Tricuspid Valve Likely normal tricuspid valve structure and function. There is trace tricuspid valve regurgitation. The right ventricular systolic pressure is normal. The right ventricular systolic pressure is 25 mmHg. Normal right atrial pressure. There is no evidence of pulmonary hypertension. Great Vessels The pulmonary artery was not well visualized. There is mild dilatation of the ascending aorta measuring 3.90 cm. Venous The inferior vena cava is normal in size and collapses greater than 50% with inspiration. Pericardium/Pleural There is no evidence of pericardial effusion. Prior Study Comparison No significant change compared to prior study dated: 07/31/2019. Measurements 2D Linear Measurements IVSd: 0.92 0.6-0.9/0.6-1.0 cm LVIDd: 4.44 3.9-5.3/4.2-5.9 cm LVIDd Index: 2.76 2.4-3.2/2.2-3.1 cm/m2 LVIDs: 3.02 2.0-3.6 cm LVPWd: 0.94 0.7-1.1 cm Ao Root: 3.30 2.1-3.5 cm LA Diam: 3.40 2.7-3.8/3.0-4.0 cm LAIDs Index: 2.11 1.5-2.3 cm/m2 LV Mass: 169.52 67-162/88-224 g LV Mass Index: 105.29 43-95/49-115 g/m2 LVOT Diam: 2.20 3.0+(-)1.3 cm 2D Systolic Function EF 4C: 52.80 >55% EF 2C: 61.20 >55% EF BiP: 58.30 >55% Mitral Valve MV Pk E: 0.82 MV PK A: 0.96 MV Decel Time: 194.00 E/A: 0.80 E'Lateral: 7.83 E'Medial: 5.22 E/E' Med: 15.70 E/E' Lat: 10.40 PHT: 57.00 MVA PHT: 3.86 Decel [place]: 4.21 Aortic Valve AoV Pk Umang: 1.23 AoV Mn Umang: 0.78 AoV VTI: 0.31 AoV Pk Grad: 6.00 Aov Mn Grad: 3.00 OMAR Cont.VTI: 2.21 LVOT LVOT Pk [place]ang: 0.73 LVOT Mn Umang: 0.45 LVOT VTI: 0.18 LVOT Pk Grad: 2.00 LVOT Mn Grad: 1.00 LVOT Diam: 2.20 LVOT Area: 3.80 Diastolic Function MV Pk E: 0.82 MV Pk A: 0.96 E/A: 0.80 E'Medial: 5.22 E/E' Med: 15.70 E' Laterial: 7.83 E/E' Lat: 10.40 Right Ventricle TAPSE (mm): 25.00 TVS' Umang: 12.00 Tricuspid Valve TR Pk Umang: 2.34 TR Pk Grad: 22.00 RA Press: 3.00 RVSP: 25.00 Great Vessels Aorta Ao Root-2D: 3.30 2.0-3.7 cm Ao Asc: 3.90 2.1-3.4 cm Pulmonary Valve PV Pk Umang: 0.77 Peak PV Grad: 2.00 Updated in Other Vendor System with Status of Final Bryce Marmolejo MD electronically signed on 06/27/2025 12:11:15 PM with status of Final
--- OUTSIDE RECORDS SUMMARY | 2025-06-26 07:40 | XMS_ITS | Clinical Summary ---
Author Organization [facility] Address [address] [address] Phone Care Team Providers Care Professional Model Name Role Phone Name, Stoney BELTRAN Primary Care Provider [phone] Allergies No known active allergies Medications predniSONE (DELTASONE) 50 MG tablet Take 1 tablet (50 mg total) by mouth daily with breakfast for 4 days. 4 tablet 5 06/05/20 25 Encounters Date Type Department Care Team Description 05/31/2025 11:30 AM EDT - 05/31/2025 3:39 PM EDT Emergency [facility] Emergency [address] [place] [address] Discharge Disposition: Home or Self Care from [...] Ordered Rapid COVID, Flu has been ordered [facility] Specimen Source/Descriptio n NASOPHARYNGEAL SWAB [facility] Influenza A PCR Not Detected Not Detected [facility] Influenza B PCR Not Detected Not Detected [facility] SARS-CoV 2 (COVID-19) PCR Not Detected Not Detected [facility] Comment: SARS-CoV-2 not detected Negative results do not preclude SARS-CoV-2 infection and should not be used as the sole basis for patient management decisions. Negative results must be combined with clinical observations, patient history, and epidemiological information. Other (Nasopharyngeal swab) 05/31/2025 1:53 PM EDT 05/31/2025 2:06 PM EDT Charlie Wilcox PA-C BODY FLUIDS AND STOOLS ORDERAB LES Final Result Performing Organization Address City/State/[facility] Co de Phone Number [address] [address] * (ABNORMAL) CBC and differential (05/31/2025 1:48 PM EDT) WBC 6.65 4.00 - 11.00 K/uL [facility] RBC 4.61 4.00 - 5.20 M/uL [facility] HGB 12.5 12.0 - 16.0 g/dL [facility] HCT 40.3 36.0 - 46.0 % [facility] PLT 250 150 - 450 K/uL [facility] MCV 87.4 80.0 - 100.0 fL [facility] MCH 27.1 27.0 - 31.0 pg [facility] MCHC 31.0(L) 32.0 - 36.0 g/dL [facility] RDW 13.6 11.5 - 14.5 % [facility] MPV 10.5 8.4 - 12.0 fL [facility] NRBC 0.00 0.00 /100 WBCs [facility] ABSOLUTE NRBC 0.00 0.00 K/uL [facility] DIFF METHOD Auto [facility] NEUTS 60.7 48.0 - 76.0 % [facility] LYMPHS 28.9 18.0 - 41.0 % [facility] MONOS 8.1 4.0 - 11.0 % [facility] EOS 1.4 0.0 - 5.0 % [facility] BASOS 0.3 0.0 - 1.5 % [facility] Granulocytes, immature (%) 0.6 0.0 - 0.9 % [facility] ABSOLUTE NEUTS 4.04 1.92 - 7.60 K/uL [facility] ABSOLUTE LYMPHS 1.92 0.72 - 4.10 K/uL [facility] ABSOLUTE MONOS 0.54 0.16 - 1.10 K/uL [facility] ABSOLUTE EOS 0.09 0.00 - 0.50 K/uL [facility] ABSOLUTE BASOS 0.02 0.00 - 0.15 K/uL [facility] Granulocytes, immature 0.04 0.00 - 0.09 K/uL [facility] Blood 05/31/2025 1:48 PM EDT 05/31/2025 1:52 PM EDT us Charlie Wilcox PA-C LAB BLOOD ORDERABLES Final Res ult [address] [address] * Basic metabolic panel (05/31/2025 1:48 PM EDT) SODIUM 141 133 - 146 mmol/L [facility] CHLORIDE 104 96 - 108 mmol/L [facility] POTASSIUM 4.4 3.3 - 5.1 mmol/L [facility] CO2 28 21 - 35 mmol/L [facility] BUN 8 6 - 19 mg/dL [facility] CREATININE 0.50 0.5 - 1.5 mg/dL [facility] GLUCOSE 92 70 - 99 mg/dL [facility] CALCIUM 9.3 8.4 - 10.3 mg/dL [facility] EGFR 102 >59 mL/min/1.7 3m2 [facility] Comment:Estimated glomerular filtration rate calculated using the CKD-EPI refit equation. ANION GAP 13 10 - 20 mmol/L [facility] Blood 05/31/2025 1:48 PM EDT 05/31/2025 1:52 PM EDT Charlie Wilcox PA-C LAB BLOOD ORDERABLES Final Res ult [facility] [address] [place] [address] * XR CHEST PA AND LATERAL 2 VIEWS (05/31/2025 11:43 AM EDT) Anatomical Region Laterality Modality Chest Computed Radiogr aphy 05/31/2025 11:4 5 AM EDT Impressions 05/31/2025 11:46 AM EDT No acute abnormality. Narrative 05/31/2025 11:46 AM EDT XR CHEST PA AND LATERAL 2 VIEWS Referring clinician's provided indication for this examination in [facility]: Dyspnea (Shortness of Breath); pneumonia not improving [...] clinician's provided indication for this examination in [facility]:Dyspnea (Shortness of Breath); pneumonia not improving COMPARISON: [...] BPM [facility] Atrial Rate 88 BPM [facility] TX Interval 154 ms [facility] QRS Duration 64 ms [facility] QT Interval 358 ms [facility] QTC Interval 433 ms [facility] P [place] 8 degrees [facility] R Wave [place] 8 degrees [facility] T Wave [place] 23 degrees [facility] 05/31/2025 11:2 7 AM EDT 06/01/2025 1:48 PM EDT Narrative [facility] - 06/01/2025 1:49 PM EDT Normal sinus rhythm Normal ECG No previous ECGs available Confirmed by Ambrocio GRANT ([id number]) on 06/01/2025 1:48:59 PM us Tone Woo MD ECG ORDERABLES Fi nal Result [facility] from Last 3 Months Insurance [facility] SCO MEDICARE REPLACEMENT MEDICARE REPLACEMENT MEDICARE REPLACEMENT MEDICARE REPLACEMENT MEDICARE REPLACEMENT MEDICARE REPLACEMENT Care Teams Professional Model Relationship Specialty Start Date End Date Name, MD Stoney [address] [place] [address] PCP - General Geriatric Psychiatry 07/28/21 Additional Source Comments The information contained in this document represents components of the legal health record. It is not the complete legal health record.[facility]
--- OUTSIDE RECORDS SUMMARY | 2025-06-26 07:40 | XMS_ITS | Encounter Summary ---
Author Organization [employer] Address [address] [place] [address] [address] [address] Care Team Providers Care Trimmer Loader Name Role Phone Name, Stoney BELTRAN Primary Care Provider [phone] Reason for Visit * Reason Onset Date Comments Prior Authorization 06/13/2023 Encounter Details Date Type Department Care Team ([facility] st Contact Info) Description 06/13/2023 Telephone [facility] [address] [place] [address] Orlin Burleson, DDS [address] [place] [address] Prior Authorization Social History Tobacco Use Types [...] Description 06/27/2025 9:30 AM EDT Office Visit [facility] [address] [place] [address] Jess Bray DDS [address] [place] [address] 07/03/2025 9:30 AM EDT Office Visit [facility] [address] [place] [address] Camelia Dudley, WEIGHER ALLOY [address] [place] [address] documented as of this encounter Visit Diagnoses Not on filedocumented in this encounter Additional Health Concerns Assessment Noted Time PHQ-9 Depression Total Score: 16 023 3:49 PM EDT documented as of this encounter Care Teams Trimmer Loader Relationship Specialty Start Date End Date Name, MD Stoney [address] [place] [address] PCP - General Family Medicine 03/04/16 documented as of this encounter
== END ==
LOC: HO.CARD 07:37
PROVIDERS: Visit Provider Internal Medicine Cardiovascular Disease
DX: I42.9 Cardiomyopathy, unspecified (principal)
CPT/HCPCS: 93306

== ENCOUNTER → 2025-06-26 07:40 | Outpatient (BNV) | payer OTHER, SELFPAY | PROVIDERS: Visit Provider Internal Medicine Cardiovascular Disease | DX: I42.8 Other cardiomyopathies (principal); I77.810 Thoracic aortic ectasia | CPT/HCPCS: 93306 ==

== ENCOUNTER 2025-07-03 17:15 | Outpatient (REF) | payer OTHER, SELFPAY ==
--- OUTSIDE RECORDS SUMMARY | 2025-04-16 05:50 | XMS_ITS ---
Author Organization [facility] Address [address] [place] [address] Care Team Providers Care Historical Guide Name Role Phone Name Stoney BELTRAN Primary Care Provider Sebastián Vu Unavailable [phone] Chrystal BELTRAN, Nessa Unavailable Unavailable REASON FOR VISIT gerd Encounters Encounter Location Date Provider Diagnosis [facility] [address] [place] [phone] 04/16/2025 Sebastián Jorge Plan Of Treatment Next Appt Details Provider Name:Sebastián Jorge , 07/15/2025 10:30:00 AM, [address] [place] [address] , [place], [place], [phone], Progress Notes * TRIPP GUZMÁNDOB:[birth year] (70 yo F)Acc No.[id number]:04/16/2025 Progress Notes Patient: Keiko CROWDERJudah TRIPP Provider: Kolby Jorge MD :1955 A ge:69 Y S ex:Female Date:04/16/2025 Address:[address] [place] [address] Pcp:Stoney Bedoya MD Subjective: * Chief Complaints: [...] 04/16/2025 Generated for Justo rhodes/Dennis/Elian on: 0 07/03/2025 05:17 PM EDT
--- OUTSIDE RECORDS SUMMARY | 2025-07-03 15:20 | XMS_ITS | Encounter Summary ---
Author Organization [employer] Address [address] [place] [id number] Care Team Providers Care Production Control Specialist Name Role Phone Name, Stoney BELTRAN Primary Care Provider [phone] Reason for Referral * Consultation (Urgent) - Pending Review Specialty Diagnoses / Procedures Referred By Contac t Referred To Contact Urology Diagnoses Dysuria Urinary tract stones Horace Stokes MD [address] [place] [address] Phone: tel: fax: Referral ID Status Reason Start Date Expiration Date Visits Requested Visits Authorized [id number] Pending Review Specialty Services Required 07/03/2025 07/03/2026 1 1 * Consultation (Routine) - Pending Review Specialty Diagnoses / Procedures Referred By Contac t Referred To Contact Orthopaedic Surgery Diagnoses Upper back pain, chronic Horace Stokes MD [address] [place] [address] Phone: tel: fax: Referral ID Status Reason Start Date Expiration Date Visits Requested Visits Authorized [id number] Pending Review Specialty Services Required 07/03/2025 07/03/2026 1 1 * Consultation (Routine) - Pending Review Specialty Diagnoses / Procedures Referred By Contac t Referred To Contact Otolaryngology Diagnoses Voice hoarseness Horace Stokes MD [address] [place] [address] Phone: tel: fax: Referral ID Status Reason Start Date Expiration Date Visits Requested Visits Authorized [id number] Pending Review Specialty Services Required 07/03/2025 07/03/2026 1 1 * Medications - Closed Specialty Diagnoses / Procedures Referred By Contac t Referred To Contact Diagnoses Upper back pain, chronic Horace Stokes MD [address] [place] [address] Phone: tel: fax: Referral ID Status Reason Start Date Expiration Date Visits Re quested Visits Authorized [id number] Closed 1 1 Reason for Visit * Reason Comments uti symptoms Encounter Details Date Type Department Care Team ([facility] st Contact Info) Description 07/03/2025 3:20 PM EDT Office Visit [facility] [address] [place] [id number] Horace Stokes MD [address] [place] [phone] Urinary tract stones (Primary Dx); Dysuria; Voice hoarseness; Chest pain, unspecified type; Upper back pain, chronic Social History Tobacco Use Types Packs/Day Years Used Date Smoking Tobacco: Never Passive Smoke Exposure: Never Smokeless Tobacco: Never Alcohol Use Standard Drinks/Week Comments Never 0 (1 standard drink = 0.6 oz pur e alcohol) Depression Answer Date Recorded Patient Health Questionnaire-9 Score 13 08/22/2024 Patient Health Questionnaire-9 Score 13 08/22/2024 Last PHQ-9: Questionnaire Data Not on file 0 08/22/2024 Housing Stability Answer Date Recorded What is your housing situation today? I have alexx crowell 05/22/[address] you li ve. Do you have problems with any of the following? None of the above 05/22/2024 Food Insecurity Answer Date Recorded Within the past 12 months, y ou worried that your food would run out before you got money to buy more: Sometimes True 2024 Within the past 12 months,th e food you bought just didn't last and you didn't have enough money to get more: Sometimes True 05/03/2025 Transportation Answer Date Recorded In the past 12 months, has l ack of transportation kept you from medical appts, meetings, work or from getting things needed for daily living? No 05/22/2024 Utilities Answer Date Recorded In the past 12 months, has t he electric, gas, oil or water company threatened to shut off services in your home? Yes 05/03/2025 Depression Answer Date Recorded Patient Health Questionnaire-2 Score 4 05/03/2025 Internet Access Answer Date Recorded Internet Access Q1 No 05/27/2025 Internet Access Q2 Not on file 05/27/2025 Comments Unknown Sex and Gender Information Value Date Recorded Sex Assigned at Female 09/27/2022 10:18 AM EDT Legal Sex Female 10:18 AM EDT Gender Identity Female 09/27/2022 10:18 AM EDT Sexual Orientation Straight 09/27/2022 10 :18 AM EDT documented as of this encounter Last Filed Vital Signs Vital Sign Reading Time Taken Comments Blood Pressure 135/82 07/03/2025 2:05 PM EDT Pulse 87 07/03/2025 2:05 PM EDT Temperature 36.8 C (98.2 F) 07/03/2025 2:05 PM EDT Respiratory Rate 17 07/03/2025 2:05 PM EDT Oxygen Saturation 97% 07/03/2025 2:05 PM EDT Inhaled Oxygen Concentration - - Weight 66.4 kg (146 lb 6.4 oz) 07/03/2025 2:05 P M EDT Height - - Body Mass Index 30.6 05/03/2025 11:06 AM EDT documented in this encounter Progress Notes * Horace Stokes MD - 07/03/2025 3:20 PM EDTAssociated Order(s): ECG 12 lead Pre-Procedure Diagnose(s): Chest pain, unspecified type Post-Procedure Diagnose(s): Chest pain, unspecified type Subjective Patient ID: Sage Perry is a 70 y.o. female. Coiled Tubing Supervisor: ARPITA Sage has had urine odor, urgency, frequency since 03/2025 that resolves transiently after takingantibiotic prescribed for UTI. States she has occasionally had hematuria during UTI symptoms. Cefdinir prescribed 04/26 for UTI sx, with urine C&S that grew E. coli sensitive to cephalosporins. Augmentin prescribed for UTI symptoms May 28, urine C&S grew E. coli that was pansensitive. States that when she is treated with antibiotic for UTI, sx resolve but then recur. UTI symptoms recurred again several days ago Denies fever, recent hematuria, chills, n/v, vaginal discharge, abdominal pain. 1 week ago passed 2 stones while urinating that she brought with her to the visit today. States that passing the stones was painless. CT scan of abdomen and pelvis done at [facility] December 10, 2024 mention the kidneys but there was no mention of any kidney stones seen. Also has had pain across lower thoracic area for several months. States that she had surgery by [facility] of L1 and L2 in past, but this pain is higher, worse with movements of torso. Has been taking ibuprofen with some improvement. States Tylenol does not help. Also has been having episodes of retrosternal chest pressure and palpitations for past month, occurs at rest or with exertion. States last saw driver retraining instructor at [facility] last week, Holter monitor and stress were are scheduled this month. Has associated nausea and diaphoresis when chest discomfort occurs. Last chest pain episode was this AM. Has no sx now. All my family from heart attacks . States parents had MIs in 60s. So has been having episodes of voice hoarseness that occurred several weeks ago and again several days ago. Denies throat pain, fever, chills, cough. Lives with and son. Not employed. Never smoked. Patient Active Problem List Diagnosis Date Noted Personal hx of gastric bypass 05/03/2025 Hyperparathyroidism ([facility]) 05/22/2024 Family history of colon cancer 01/11/2024 Dysphagia 01/11/2024 Gastro-esophageal reflux disease without esophagitis 01/11/2024 Status post left knee replacement 01/11/2024 Palpitation 01/11/2024 Complete edentulism 09/19/2023 Fibromyalgia 08/24/2023 Partially edentulous mandible, class I edentulism 06/01/2023 Class 1 obesity 05/30/2023 Dental plaque 01/06/2023 Esophageal diverticulum 12/07/2022 Esophageal dysphagia 12/07/2022 Hypothyroidism 12/07/2022 Moderate persistent asthma 12/07/2022 Constipation 09/20/2018 Hematuria 08/04/2018 Midline cystocele 08/04/2018 Vitamin D deficiency 02/21/2018 Malabsorption syndrome 12/20/2017 Chronic obstructive lung disease ([facility]) 09/19/2017 Hiatal hernia 09/19/2017 Numbness of hand 06/09/2017 Numbness of lower limb 06/09/2017 Cobalamin deficiency 09/27/2016 Hip pain 07/05/2016 Peripheral venous insufficiency 05/04/2016 Morbid obesity ([facility]) 03/04/2016 Iatrogenic shortened metatarsal bone of right foot 03/02/2016 Hammertoe 01/08/2016 Anxiety 09/25/2015 Depression 09/25/2015 Metatarsalgia of both feet 09/16/2015 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 Respiratory: Positive for shortness of breath. Cardiovascular: Positive for chest pain. Gastrointestinal: Positive for nausea. Negative for abdominal pain. Genitourinary: Positive for dysuria, frequency and urgency. Skin: Negative for rash. Neurological: Negative for headaches. Objective Physical Exam Constitutional: Appearance: Normal appearance. HENT: Right Ear: Tympanic membrane, ear canal and external ear normal. Left Ear: Tympanic membrane, ear canal and external ear normal. Nose: Nose normal. Mouth/Throat: Mouth: Mucous membranes are moist. Pharynx: Oropharynx is clear. Eyes: Conjunctiva/sclera: Conjunctivae normal. Pupils: Pupils are equal, round, and reactive to light. Cardiovascular: Rate and Rhythm: Normal rate and regular rhythm. Heart sounds: No murmur heard. Pulmonary: Effort: Pulmonary effort is normal. Breath sounds: Normal breath sounds. Abdominal: Tenderness: There is no right CVA tenderness or left CVA tenderness. Musculoskeletal: General: Normal range of motion. Cervical back: No tenderness. Comments: Tenderness across the upper back at the lower thoracic spine area. Skin: Findings: No rash. Neurological: Mental Status: She is alert. Gait: Gait is intact. Psychiatric: Mood and Affect: Mood normal. Behavior: Behavior normal. ECG 12 lead Date/Time: 07/03/2025 3:05 PM Performed by: Horace Stokes MD Authorized by: Horace Stokes MD Previous ECG: Previous ECG: Unavailable Interpretation: Interpretation: abnormal Details: HAMZAH Rate: ECG rate: 92 ECG rate assessment: normal Rhythm: Rhythm: sinus rhythm Ectopy: Ectopy: none QRS: QRS axis: Normal QRS intervals: Normal QRS conduction: normal ST segments: ST segments: Normal T waves: T waves: normal Q waves: Abnormal Q-waves: not present Other findings: Other findings: LAE Assessment/Plan Diagnoses and all orders for this visit: Urinary tract stones Referred to urology. Advised to bring the stones to the appointment. - Referral to Urology; Future Dysuria Urine C&S pending. Prescribed Cipro. Referred to urology for recurrent documented UTIs as well as recently passed stones. Return to clinic if not improving - Culture, Urine, Routine - Referral to Urology; Future Voice hoarseness Rapid COVID and strep test negative. Referred to ENT. - Referral to ENT; Future Chest pain, unspecified type She has been asymptomatic since this morning EKG done in walk-in clinic appears normal except for left atrial abnormality. Advised to keep the stress test and Holter monitor scheduled by her driver retraining instructor at [facility]. Advised to go to the ED if the chest discomfort recurs. - ECG 12 lead Upper back pain, chronic Prescribed lidocaine patches. Advised to decrease use of ibuprofen. States Tylenol does not help. Referred to [facility]. - lidocaine (Lidoderm) 5 % patch; Apply 1 patch topically Once per day. Remove & discard patch within 12 hours or as directed by MD. - Referral to Orthopaedic Surgery; Future Other orders - ciprofloxacin (Cipro) 250 MG tablet; Take 1 tablet (250 mg) by mouth 2 times daily for 5 days. documented in this encounter Plan of Treatment Upcoming Encounters Date Type Department Care Team ([facility] Contact Info) Description 07/24/2025 3:30 PM EDT Office Visit [facility] MEDIC[facility] [address] [place] [address] Drewpennie Camelia, FADY [address] [place] [address] Pending Results Name Type Priority Associated Diagnoses Date /Time ECG 12 lead ECG Routine Chest pain, unspecified type 07/03/2025 4:38 PM EDT Scheduled Orders Name Type Priority Associated Diagnoses Orde r Schedule Culture, Urine, Routine Microbiology Routine Dysuria Ordered: 07/03/2025 Scheduled Referrals Name Type Priority Associated Diagnoses Order Schedule Referral to ENT Outpatient Referral Routine Voice hoarseness Expected: 07/03/2025 (Approximate), Expires: 07/03/2026 Referral to Orthopaedic Surgery Outpatient Referral Routine Upper back pain, chronic Expected: 07/03/2025 (Approximate), Expires: 07/03/2026 Referral to Urology Outpatient Referral Urgent Dysuria Urinary tract stones Expected: 07/03/2025 (Approximate), Expires: 07/03/2026 documented as of this encounter Procedures Procedure Name Priority Date/Time Associated Diagnosis Comments ECG 12-LEAD Routine 07/03/2025 4:38 PM EDT Chest pain, unspecified type documented in this encounter Visit Diagnoses Diagnosis Urinary tract stones- Primary Unspecified urinary calculus Dysuria Voice hoarseness Dysphonia Chest pain, unspecified type Upper back pain, chronic documented in this encounter Additional Health Concerns Assessment Noted Time PHQ-9 Depression Total Score: 13 024 11:07 AM EDT documented as of this encounter Care Teams Production Control Specialist Relationship Specialty Start Date End Date Name, MD Stoney [address] [place] [address] PCP - General Family Medicine 03/04/16 documented as of this encounter
== END 2025-07-03 17:16 | disposition home or self-care (01) ==
LOC: HO.HHCLNP 17:15
PROVIDERS: Visit Provider Emergency Medicine
DX: R30.0 Dysuria (principal)
CPT/HCPCS: 87086; 87088; 87186

== ENCOUNTER 2025-09-23 14:30 | Outpatient (AMB) | payer OTHER, SELFPAY ==
--- OUTSIDE RECORDS SUMMARY | 2024-12-14 09:50 | XMS_ITS ---
Author Organization [facility] Address [address] [place] [address] Care Team Providers Care Nitrating Acid Mixer Name Role Phone Name Stoney BELTRAN Primary Care Provider Sebastián Vu Unavailable [phone] Nessa Jarrell MD Unavailable Unavailable REASON FOR VISIT esophageal dysphagia,esoph diverticulum,gerd, fam hx colon ca, screening Problems Problem Type SNOMED Code ICD Code Onset Dates Problem Status W/U Status Risk Notes Problem Diverticular disease of colon (070939848) Diverticulosis of large intestine without perforation or abscess without bleeding (K57.30) Active confirmed Problem Gastroesophageal reflux disease (258771490) Gastroesophageal reflux disease (K21.9) Active confirmed Encounters Encounter Location Date Provider Diagnosis [facility] [place] [facility] [address] [place], [place] [id number] 12/14/2024 Sebastián Jorge Colon cancer screeni ng Z12.11 ; Diverticulosis of large intestine without perforation or abscess without bleeding K57.30 ; Other hemorrhoids K64.8 ; Gastroesophageal reflux disease K21.9 and Dysphagia R13.10 Assessments Encounter Date Diagnosis (ICD Code) Assessment Notes Treatment Notes Treatment Clinical Notes Section Notes 12/14/2024 Colon cancer screening (ICD-10 - Z12.11) 12/14/2024 Diverticulosis of large intestine without perforation or abscess without bleeding (ICD-10 - K57.30) 12/14/2024 Other hemorrhoids (ICD-10 - K64.8) 12/14/2024 Gastroesophageal reflux disease (ICD-10 - K21.9) 12/14/2024 Dysphagia (ICD-10 - R13.10) Plan Of Treatment Next Appt Details Provider Name:Sebastián Jorge , 10/04/2025 12:30:00 PM, [address] [place] [address] , [place], [place], [phone], Progress Notes * TRIPP GUZMÁNDOB:[birth year] (70 yo F)Acc No.[id number]:12/14/2024 EGD and COL/MAC Patient: TRIPP MCKENNA Provider: Kolby Jorge MD :1955 A ge:69 Y S ex:Female Date:12/14/2024 Address:[address] [place], [place] [id number] Pcp:Stoney Bedoya MD Subjective: * Chief Complaints: * 1 . Esophageal dysphagia,esoph diverticulum,gerd, fam hx colon ca, screening. * Medical History: Objective: * Vitals: Assessment: * Assessment: 1. C olon cancer screening - Z12.11 (Primary) 2 . D iverticulosis of large intestine without perforation or abscess without bleeding - K57.30 3 . O ther hemorrhoids - K64.8 4 . G astroesophageal reflux disease - K21.9 5 . D ysphagia - R13.10 Plan: * Treatment: * Procedure Codes: 4 5378 DIAGNOSTIC COLONOSCOPY, Modifiers: 53 , 36256 ESOPH ENDOSCOPY, DILATION * * The named appointment provid er may or may not be the originator of this progress note, and it is not deemed complete until electronically signed by the appointment provider. Sign off status: Pending * Provider: Kolby Jorge MD Date: 0 12/14/2024 Generated for Justo rhodes/Dennis/eTransmitting on: 06:05 PM EDT
--- OUTSIDE RECORDS SUMMARY | 2025-04-16 05:50 | XMS_ITS ---
Author Organization [facility] Address [address] [place] [address] Care Team Providers Care Meter Repairer Helper Name Role Phone Name Stoney BELTRAN Primary Care Provider Sebastián Vu Unavailable [phone] Chrystal BELTRAN, Nessa Unavailable Unavailable REASON FOR VISIT gerd Encounters Encounter Location Date Provider Diagnosis [facility] [address] [place] [phone] 04/16/2025 Sebastián Jorge Plan Of Treatment Next Appt Details Provider Name:Sebastián Jorge , 10/04/2025 12:30:00 PM, [address] [place] [address] , [place], [place], [phone], Progress Notes * TRIPP GUZMÁNDOB:[birth year] (70 yo F)Acc No.[id number]:04/16/2025 Progress Notes Patient: Keiko BANERJEEJACKY TRIPP Provider: Kolby Jorge MD :1955 A ge:69 Y S ex:Female Date:04/16/2025 Address:[address] [place] [address] Pcp:Stoney Bedoya MD Subjective: * Chief Complaints: [...] 0 04/16/2025 Generated for Justo rhodes/Dennis/Elian on: 1 06:05 PM EDT
--- OUTSIDE RECORDS SUMMARY | 2025-07-15 06:30 | XMS_ITS ---
Author Organization [facility] Address [address] [place] [address] Care Team Providers Care Drill Instructor Name Role Phone Name Stoney BELTRAN Primary Care Provider Sebastián Vu Unavailable [phone] Chrystal BELTRAN, Nessa Unavailable Unavailable REASON FOR VISIT screening,fam hx colon cancer Encounters Encounter Location Date Provider Diagnosis [facility] Out[facility] [address] [place] [phone] 07/15/2025 Sebastián Jorge Plan Of Treatment Next Appt Details Provider Name:Sebastián Jorge , 10/04/2025 12:30:00 PM, [address] [place] [address], [phone], Progress Notes * TRIPP GUZMÁNDOB:[birth year] (70 yo F)Acc No.[id number]:07/15/2025 COLON WITH MAC Patient: Keiko MOREIRATRIPP PIKE Provider: Kolby Jorge MD :1955 A ge:70 Y S ex:Female Date:07/15/2025 Address:[address] [place] [address] Pcp:Stoney Bedoya MD Subjective: * Chief Complaints: * 1 . Screening,fam hx colon cancer. * Medical History: Objective: * Vitals: Assessment: Plan: * Treatment: * * The named appointment provid er may or may not be the originator of this progress note, and it is not deemed complete until electronically signed by the appointment provider. Sign off status: Pending * Provider: Kolby Jorge MD Date: 0 07/15/2025 Generated for Justo rhodes/Dennis/Elian on: 1 06:05 PM EDT
--- NOTE | 2025-09-23 14:33 | MHC.OFFVIS ---
Intake Visit Reasons: history of stones/ UTI Intake Note: Patient is present for HX OF STONES /UTI Urology Medication:NONE Antibiotic Allergy:VANCOMYCIN Blood Thinner:NONE TODAY'S PVR:26ML'S Career Professional Required: Yes Career Professional Services: Career Professional Present Career Professional Name: Tessa [phone] Allergies vancomycin (VANCOMYCIN) Allergy (Intermediate, Verified 09/23/25 21:05) FACIAL FLUSHING/ITCHING trazodone (TRAZODONE) Allergy (Unknown, Verified 09/23/25 21:05) PER H&P Medication List - Last Reconciled 09/23/25 by FADY Antonio-WILNER acetaminophen 1,000 mg PO Q8H PRN albuterol sulfate 90 mcg/actuation 2 puffs inhalation Q4-6H PRN 30 days albuterol sulfate 2.5 mg (3 mL) inhalation DAILY arformoterol (Brovana) 2 mL inhalation BID bisacodyl 10 mg PO BID PRN budesonide 0.25 mg (2 mL) inhalation BID bupropion HCl XL 300 mg PO QAM calcium carbonate-vitamin D3 600 mg-20 mcg (800 unit) 1 tab PO DAILY cefuroxime axetil 500 mg PO BID 7 days cholecalciferol (vitamin D3) 50 mcg PO DAILY clonazepam 1 mg PO BID cyanocobalamin (vitamin B-12) 1,000 mcg PO DAILY famotidine 20 mg PO BID ferrous sulfate 325 mg PO DAILY folic acid 1 mg PO DAILY furosemide (Lasix) 40 mg PO DAILY ipratropium-albuterol 0.5 mg-3 mg(2.5 mg base)/3 mL 3 mL inhalation Q4-6H PRN 30 days levothyroxine 25 mcg PO DAILY melatonin 5 mg PO BEDTIME mirtazapine 30 mg PO BEDTIME multivitamin 1 tab PO DAILY omeprazole 40 mg PO DAILY tramadol 50 mg PO TID PRN vitamin A 10,000 units PO DAILY HPI Comments Details: Flory is a very pleasant 70-year-old [place] Islander-speaking female patient of Dr. Bedoya. She has a past medical history of sleep apnea, anemia, environmental allergies, persistent asthma, dysphagia, GERD, IBS, herniated disc, anxiety, and depression. She presents to the office today as a new patient for recurrent urinary tract infections as well as nephrolithiasis. In discussion with the patient today she reports sometime in May she had been experiencing pain at which time she urinated stone fragments that she brings with her to the office today. She denies any previous history of nephrolithiasis and or surgical intervention for nephrolithiasis prior to this incident. She does report a previous history of a bladder lift in [place] many years ago and feels she continues to experience episodes of urge/stress incontinence. In review of patient's chart it appears urine cultures are as follows: 04/21, 06/21, 07/22 E coli. She reports she is currently on Estrace cream provided by her finger lift operator however uses this vaginally. We did discuss applying it to the urethra daily x1 month and then 3 times per week thereafter for prevention of recurrent urinary tract infections. When asked she does endorse to only drinking about 32 oz of water daily at most. We did discussed the importance of adequate hydration relation to nephrolithiasis as well as recurrent urinary tract infections. We did discussed potential causes of nephrolithiasis, recurrent urinary tract infections, as well as mixed urinary incontinence. She denies urinary urgency, urinary frequency, nocturia, hematuria, dysuria, foul smelling urine, changes to urinary stream, flank pain, fever, and or chills. In office urinalysis results reviewed with the patient today. PVR 26 mL. When asked she does report a previous history of 3 vaginal deliveries of average size babies however she does report labors to be long otherwise uneventful. All questions were answered. She otherwise offers no other issues or concerns at this time. [facility] Medical History (Updated 09/23/25 @ 21:17 by Gabriela Clark [facility]) Sleep apnea Hernia of enterostomy Anemia Environmental allergies Moderate persistent asthma Dysphagia GERD (gastroesophageal reflux disease) Malabsorption due to intolerance, not elsewhere classified LUQ abdominal tenderness IBS (irritable bowel syndrome) Herniated disc Anxiety Depression Surgical History (Updated 07/11/25 @ 14:59 by Emily Ochoa RN) History of total left knee replacement (TKR) History of endoscopy Hx of hernia repair H/O neck surgery Hx of hammer toe correction H/O colonoscopy History of bunionectomy S/P rotator cuff repair History of Rebecca-en-Y gastric bypass History of back surgery H/O laminectomy History of bladder surgery Hx laparoscopic cholecystectomy History of partial hysterectomy Family History Father Alcohol abuse Cancer Diabetes Mother Colon cancer Liver cancer Diabetes Brother Cancer Social History Household Members: Family Household Members Other:: grandchildren and daughter Housing: House Alcohol intake: current Alcohol intake frequency: does not drink Patient Tobacco Use Status: Former Tobacco user Years Smoked: 5 +/- service: No Current occupational status: retired Current occupation: Right Handed Review of Systems Const All systems reviewed & are unremarkable except as noted in HPI and below Physical Exam Const General: cooperative, healthy appearing, comfortable, no acute distress, well developed, alert and awake Orientation/consciousness: patient oriented x3 Limitations: language barrier HEENT Head: Yes normal to inspection, Yes normocephalic and Yes atraumatic Ears: hearing grossly normal bilaterally Eyes General: appearance normal, both eyes and all related structures Neck Neck: Yes normal visual inspection and Yes trachea midline Chest Chest palpation & inspection: normal inspection of the chest Resp Effort & Inspection: normal respiratory effort and able to speak in complete sentences Cardio Rate: regular rate GI Inspection: Yes normal to inspection General: Yes no CVA tenderness Back/Spine/Pelvis Back: no CVA tenderness Skin General skin exam: no rashes or lesions noted Neuro General: patient oriented x3 Extrem General: Yes normal to inspection Psych Appearance: grossly normal and well kempt Mental Status: mental status grossly normal Speech and movement: Normal speech and movement present and Clear speech present Affect: normal affect Attitude: cooperative Thought process: Normal thought process present Thought content: Normal thought content present Insight: Fair insight present (Psych) Judgement: Fair judgement present (Psych) Office Procedures Post Void Residual Post Residual Void Post Void Residual (PVR): 26 [id number] Void Residual by ultrasound Results AMB Urinalysis, Automated UA Leukoctes 15 Adrián/uL Last Edit by MAYURI Bey on 09/23/25 15:55 UA Nitrite Negative Last Edit by MAYURI Bey on 09/23/25 15:55 UA Urobilinogen 0.2 mg/dL Last Edit by MAYURI Bey on 09/23/25 15:55 UA Protein 0 mg/dL Last Edit by MAYURI Bey on 09/23/25 15:55 UA pH 6.0 Last Edit by MAYURI Bey on 09/23/25 15:55 UA Blood 0 Dylan/uL Last Edit by MAYURI Bey on 09/23/25 15:55 UA Specific [place] 1.025 Last Edit by MAYURI Bey on 09/23/25 15:55 UA Ketone Negative Last Edit by MAYURI Bey on 09/23/25 15:55 UA Bilirubin 0 mg/dL Last Edit by MAYURI Bey on 09/23/25 15:55 UA Glucose 0 mg/dL Last Edit by MAYURI Bey on 09/23/25 15:55 Results Reviewed Results Reviewed: Laboratory Last Values Urine pH (Auto) 6.0 09/23/25 15:54 Specific [place] (Auto) 1.025 09/23/25 15:54 Urine Protein (Auto) 0 mg/dL 09/23/25 15:54 Glucose (UA)(Auto) 0 mg/dL 09/23/25 15:54 Urine Ketones (Auto) Negative 09/23/25 15:54 Urine Blood (Auto) 0 Dylan/uL 09/23/25 15:54 Urine Nitrite (Auto) Negative 09/23/25 15:54 Urine Bilirubin (Auto) 0 mg/dL 09/23/25 15:54 Urine Urobilinogen (Auto) 0.2 mg/dL 09/23/25 15:54 Leukocyte Esterase (Auto) 15 Adrián/uL 09/23/25 15:54 Assessment & Plan Assessment & Plan (1) Nephrolithiasis: Code(s): N20.0 - Calculus of kidney Category: Medical (2) Recurrent urinary tract infection: Code(s): N39.0 - Urinary tract infection, site not specified Category: Medical (3) Mixed incontinence urge and stress: Code(s): N39.46 - Mixed incontinence Category: Medical Plan In office urinalysis results reviewed with the patient today; as noted above. PVR 26 mL Will obtain retroperitoneal ultrasound for further assessment evaluation. We did discuss further treatment options of stress/urge incontinence and risks and benefits of these treatment options. We discussed the importance of adequate hydration relation to nephrolithiasis as well as overall health and well-being. We discussed utilizing Estrace cream 3 times per week for prevention of recurrent urinary tract infections. Discussed UTI prevention with D mannose supplement, vitamin-C, increasing fluid intake, behavioral therapy with timed voiding, perineal hygiene and postcoital voiding, and management of constipation with stool softeners and increased fiber intake. All questions were answered. Follow-up in 3 months with imaging to be completed prior and PVR; or sooner with any issues, concerns, and or questions. Orders: Orders AMB Urinalysis Automated Today Z13.9 - Encounter for screening, unspecified US retroperitoneal comp Today N20.0 - Calculus of kidney Surgical Today N20.0 - Calculus of kidney Patient Instructions: The patient had an opportunity to ask questions regarding the treatment plan. All questions were answered. Physical exam, labs, and imaging were discussed and reviewed in detail. As well as risks, benefits, and discussion of treatment choices. No major barriers to understanding were identified. The patient expressed understanding and agreement with the above treatment plan. The patient was made aware they should contact our office by phone for worsening of their current condition, the appearance of new symptoms, or with any questions or concerns. Compliance is encouraged with any medications and follow up testing that is ordered. It is a privilege to be allowed the opportunity to participate in? your urological care.? Again, if you have any questions or concerns If you have any questions or concerns please do not hesitate to contact me. The office is [phone]. This note is constructed using voice recognition software. While every effort has been made to ensure accuracy open tenter operator errors may have been included. Yours sincerely, MARTELL Antonio Coding Level of Care Code New Pt Level 3 (64131) Diagnoses Nephrolithiasis N20.0 Recurrent urinary tract infection N39.0 Mixed incontinence urge and stress N39.46 CPT Codes Post Residual Void - PVR CPT Code: 12355-[id number] Void Residual by ultrasound ([id number])
--- OUTSIDE RECORDS SUMMARY | 2025-09-23 18:05 | XMS_ITS | Clinical Summary ---
Author Organization [facility] Address [address] [place] [phone] Phone Care Team Providers Care Inspector Crystal Name Role Phone Name, Stoney BELTRAN Primary Care Provider [phone] Allergies No known active allergies Medications No known medications Social History Tobacco Use Types Packs/Day Years [...] have trouble paying for medicines? I gerardo se not to answer 05/31/2025 Paying Utility Bills [...] 05/31/2025 11:24 AM EDT Plan of Treatment Upcoming Encounters Date Type Department Care Team (Late st Contact Info) Description 03/03/2026 2:45 PM EDT Office Visit [facility] Medical [facility] Plastic Surgery [address] [place] [id number] Chapo Crespo MD [address] [place] [id number] Health Maintenance Due Date Last Done Comments [...] 12/10/2006 OSTEOPOROSIS SCREENING INITI AL (ONE-TIME) 2022 MAMMOGRAM 09/14/2024 09/14/2022, 09/10/2022, 02/15/2020 INFLUENZA VACCINE (#1) 2025 09/19/2017 COVID-19 VACCINE (3 - 2024-2 6 season) 2025 09/01/2021, 08/11/2021 Adult Td,Tdap Booster 12/20/2026 12/20/2016 SCREENING FOR [...] this topic Medical Devices Not on file Insurance [facility] [employer] MEDICARE REPLACEMENT MEDICARE REPLACEMENT MEDICARE REPLACEMENT MEDICARE REPLACEMENT MEDICARE [place] [address] [place] [address] MEDICARE REPLACEMENT Care Teams Inspector Crystal Relationship Specialty Start Date End Date Name, MD [address] [place] [address] PCP - General Geriatric Psychiatry 07/28/21 Additional Source Comments The information contained in this document represents components of the legal health record. It is not the complete legal health record.[facility]
--- OUTSIDE RECORDS SUMMARY | 2025-09-23 18:06 | XMS_ITS | Patient Health Record ---
Author Organization [facility] Address [address] [place] [address] Care Team Providers Care Census Clerk Name Role Phone Name Stoney BELTRAN Primary Care Provider Unavailabl e Sebastián Jorge Unavailable [phone] Nessa Jarrell MD Unavailable Unavailable Allergies Allergen (clinical drug ingredient) Drug/Non Drug Allergy documented on EMR Reaction Allergy Type Onset Date Status vancomycin Vancomycin rash Drug Allergy Activ e trazodone traZODone changed mood Drug Allergy Acti ve Results Component Value Reference Range Notes FL barium swallow Reviewed date:10/20/2024 06:11:24 PM Interpretation: Performing Lab: Notes/Report: [facility] [address] [place] [id number] Fluoroscopy Report Signed Patient: Tripp Guzmán MR#: [id number] : 1955 Acct:[id number] Age/Sex: 69 / F ADM Date: 10/05/24 Loc: [facility] Attending Dr: Sebastián Jorge MD Ordering Physician: Sebastián Jorge MD Date of Service: 10/05/24 Procedure(s): FL barium swallow Accession Number(s): [id number] cc: Stoney Bedoya MD; Sebastián Jorge MD EXAMINATION: XR FLUOROSCOPY UPPER GI WITH AIR CLINICAL INFORMATION: Dysphagia. History of gastric bypass. COMPARISON: None TECHNIQUE: Fluoroscopic air contrast upper GI examination was performed utilizing standard techniques with thin and thick barium and effervescent granules. Numerous spot images were obtained. FINDINGS: Lateral cine images of the oropharynx and hypopharynx demonstrate normal swallow mechanism with normal epiglottic inversion and soft palate elevation. No tracheal penetration, glottic or subglottic aspiration identified. No nasopharyngeal reflux present. A very small pharyngeal diverticulum is present. There was no significant cricopharyngeal achalasia. ACDF is noted at C5-C6. Dual and single contrast images of the esophagus demonstrate normal caliber, contour, and mucosal pattern. No evidence of stricture, mass, or ulcerations identified. Esophageal peristalsis was mildly disorganized. The patient swallowed the barium tablet without any difficulty. There is temporary stasis of the tablet in the cervical esophagus. With subsequent sips of water, the tablet passed distally, however, there was prolonged stasis of the tablet within the hiatal hernia. A small type I hiatal hernia is present. Gastroesophageal reflux is observed up to the thoracic inlet.. Dual contrast and single contrast images of the stomach demonstrate post surgical changes consistent with prior history of Rebecca-en-Y gastric bypass. The gastrojejunostomy is widely patent, without evidence of stricture. There are focal areas of contrast pooling within the hiatal hernia, which may represent small mucosal ulcerations. Contrast freely passed into the alimentary limb without delay. The imaged proximal jejunum has a normal fold pattern and caliber. Bilateral spinal stimulators are present, with leads terminating in the lumbar and cervical thecal sac. FLUOROSCOPY TIME: 6 minutes 51 seconds Number of Spot Images: 10 Number of Cine: 15 DOSE AREA PRODUCT: [id number] uGy-m2 (microgray-meter squared) FL/FL barium swallow IMPRESSION: 1. There is small pharyngeal diverticulum. 2. Mildly disordered esophageal peristalsis. 3. Temporary stasis of the barium tablet in the cervical esophagus that passed with subsequent sips of water. There was prolonged stasis of the tablet within the hiatal hernia. 4. Small type I hiatal hernia with significant gastroesophageal reflux. 5. Post surgical changes consistent with prior history of Rebecca-en-Y gastric bypass. Gastrojejunostomy is widely patent, without evidence of stricture. 6. There are focal areas of contrast pooling within the hiatal hernia that may represent small mucosal ulcerations. Recommend correlation with EGD. 7. Status post ACDF C5-C6. 8. Status post placement of bilateral spinal stimulators. The leads terminate in the cervical and lumbar thecal spinal canal. This procedure was performed by Mack Mcbride PA-C, and supervised by Dr. 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 the day before the colonoscopy Orally Two tablets 2 days before the colonoscopy, and then two tablets twice a day for one day before the colonoscopy; Duration: 2 days 05/02/2025 Active Cyanocobalamin 1000 MCG 1 tablet Injecti on Once a month Active Omeprazole 40 MG TAKE 1 CAPSULE BY MO UTH EVERY MORNING; Duration: 30 Active Vitamin D 50 MCG (1999 UT) TAKE 1 TABLET BY MOUTH EVERY DAY Oral; Duration: 30 Active Vitamin B 12 500 MCG 1 tablet Orally Onc e a day; Duration: 30 day(s) Active MiraLax (colon prep) 17 GM/SCOOP 1 238Gm bottle of mixed with Gatorade or Crystal Light Orally begin at 5:00 p.m. the day before the procedure; Duration: 1 day 11/04/2024 Active Mirtazapine 30 MG TAKE 1 TABLET BY KIKI TH AT BEDTIME Oral; Duration: 30 Active buPROPion HCl ER (XL) 300 MG TAKE 1 TABL ET BY MOUTH EVERY MORNING Oral; Duration: 30 Active Dulcolax (colon prep) 5 MG take at 3:00 p.m and 7:00p.m. Orally two tablets twice a day for one day; Duration: 1 day 11/04/2024 Active clonazePAM 1 MG Oral; Duration: 30 Active MiraLax (colon prep) 17 GM/SCOOP 1/2 of a 238Gm bottle mixed with Gatorade 2 days before the colonoscopy, and then 1 full 238Gm bottle mixed with Gatorade or Crystal Light the day before the colonoscopy orally Do two days before the colonoscopy and then 1 day before the colonoscopy; Duration: 2 days 05/02/2025 Active Melatonin 5 MG TAKE 1 TABLET BY KIKI TH EVERY NIGHT AT BEDTIME Oral; Duration: 30 Active Multi-Vitamins - TAKE 1 TABLET BY KIKI TH EVERY DAY WITH FOOD Oral; Duration: 30 Active traMADol HCl 50 MG TAKE 1 TABLET BY KIKI TH EVERY 8 HOURS NEEDED Oral; Duration: 7 Active Immunizations Vaccine Route Administration Date Status Comme nts Influenza Unknown 02/18/2022 Refused Influenza Unknown 04/24/2025 Refused Social History Tobacco Use: Social History Observation Description Date Details (start date - stop date) Never Smoker NA - NA Tobacco Use/Smoking Question Answer Notes Patient is a nonsmoker Alcohol Screen Question Answer Notes Did you have a drink containing alcohol in the p ast year? No Points 0 Interpretation Negative Section Notes: Nonsmoker; no sig alcohol Nonsmoker; no sig alcohol Nonsmoker; no sig alcohol Problems Problem Type SNOMED Code ICD Code Onset Dates Problem Status W/U Status Risk Notes Problem Colon cancer screening (113512180) Colon cancer screening (Z12.11) Active confirmed Problem Constipation (18745258) Constipation (K59.00) Active confirmed Problem Diverticular disease of colon (465947188) Diverticulosis of large intestine without perforation or abscess without bleeding (K57.30) Active confirmed Problem Dysphagia (05508549) Dysphagia (R13.10) Active confirmed Problem Gastroesophageal reflux disease (522320909) Gastroesophageal reflux disease (K21.9) Active confirmed Problem Family History of Cancer of Colon (Situation) (842538608) Family history of colon cancer (Z80.0) Active confirmed Problem Esophageal reflux finding (867580073) Gastroesophageal reflux (K21.9) Active confirmed Problem Esophageal diverticulum (171687171) Esophageal diverticulum (Q39.6) Active confirmed Problem Fecal soiling (225158691) Fecal soiling (R15.1) Active confirmed Problem Gastroesophageal reflux disease (416406279) Gastroesophageal reflux disease, unspecified whether esophagitis present (K21.9) Active confirmed Problem Esophageal dysphagia (45631889) Esophageal dysphagia (R13.19) Active confirmed Vital Signs Temperature 98.2 degrees Fahrenheit 04/24/2025 Blood pressure diastolic 01 mm Hg 04/24/2025 Height 57 in 04/24/2025 Blood pressure systolic 001 mm Hg 04/24/2025 Weight 150 lbs 04/24/2025 BMI 32.46 kg/m2 04/24/2025 Procedures Procedure Date Ordered Date Performed Result Body Sit e COLONOSCOPY 04/24/2025 N/A Encounters Encounter Location Date Provider Diagnosis [facility] [address] [place] [id number] 12/14/2024 Sebastián Jorge Colon cancer screeni ng Z12.11 ; Diverticulosis of large intestine without perforation or abscess without bleeding K57.30 ; Other hemorrhoids K64.8 ; Gastroesophageal reflux disease K21.9 and Dysphagia R13.10 [facility] [address] [place] [phone] 10/02/2024 Sebastián Jorge Gastroesophageal ref lux disease, unspecified whether esophagitis present K21.9 ; Esophageal dysphagia R13.19 ; Esophageal diverticulum Q39.6 ; Family history of colon cancer Z80.0 and Colon cancer screening Z12.11 [facility] [address] [place] [phone] 04/24/2025 Sebastián Jorge Gastroesophageal ref lux disease, unspecified whether esophagitis present K21.9 ; Constipation K59.00 ; Fecal soiling R15.1 ; Family history of colon cancer Z80.0 and Colon cancer screening Z12.11 [facility] [address] [place] [phone] 10/02/2024 Sebastián Jorge [facility] [address] [place] [phone] 12/18/2024 Sebastián Jorge [facility] [address] [place] [phone] 04/16/2025 Sebastián Jorge [facility] [address] [place] [phone] 04/24/2025 Sebastián Jorge [facility] [address] [place] [phone] 07/11/2025 Sebastián Jorge [facility] [address] [place] [phone] 07/22/2025 Sebastián Jorge Assessments Encounter Date Diagnosis (ICD Code) Assessment Notes Treatment Notes Treatment Clinical Notes Section Notes 12/14/2024 Colon cancer screening (ICD-10 - Z12.11) 12/14/2024 Diverticulosis of large intestine without perforation or abscess without bleeding (ICD-10 - K57.30) 10/02/2024 Gastroesophageal reflux disease, unspecified whether esophagitis present (ICD-10 - K21.9) Stop omeprazole since you don't really have a stomach to make acid Overall, Tripp appears well from a clinical standpoint. Her weight is quite stable. I did review the findings on her upper endoscopy in January of 2022. This did not reveal any abnormalities as had been suggested on her previous barium swallow in regard to her dysphagia and possible esophageal diverticulum. At that time, as well as currently, I do feel that a lot of her upper GI complaints are in relation to all her previous gastric surgeries including the gastric bypasses and hiatal hernia repair. I have recommended a repeat barium swallow with a barium tablet to reassess things. She is leaving for [place] next week for 2 months but hopefully we can get the x-ray done before that. I will also plan to schedule her for an upper endoscopy with possible dilation after she returns in November. She'll also have a colonoscopy for screening purposes as she reports her last exam was over 10 years ago. We did review the rationale for that in regard to colon cancer prevention. The procedures will be done with monitored anesthesia care. Full consent is obtained for these procedures, including risks of bleeding and perforation. Of note, I did advise her to stop her omeprazole since clearly based on her anatomy she does not make any acid I don't think she needs to stay on that in regard to the symptoms of reflux. I did advise her to try some other things such as TUMS or liquid antacids to see if that'll give her any symptomatic relief from what I suspect is some bile-induced symptoms. Tripp was comfortable with this plan. Thank you again for allowing me to participate in Tripp's care. I shall continue to keep you advised of her progress. 10/02/2024 Esophageal dysphagia (ICD-10 - R13.19) Overall, Tripp appears well from a clinical standpoint. Her weight is quite stable. I did review the findings on her upper endoscopy in March of 2022. This did not reveal any abnormalities as had been suggested on her previous barium swallow in regard to her dysphagia and possible esophageal diverticulum. At that time, as well as currently, I do feel that a lot of her upper GI complaints are in relation to all her previous gastric surgeries including the gastric bypasses and hiatal hernia repair. I have recommended a repeat barium swallow with a barium tablet to reassess things. She is leaving for [place] next week for 2 months but hopefully we can get the x-ray done before that. I will also plan to schedule her for an upper endoscopy with possible dilation after she returns in November. She'll also have a colonoscopy for screening purposes as she reports her last exam was over 10 years ago. We did review the rationale for that in regard to colon cancer prevention. The procedures will be done with monitored anesthesia care. Full consent is obtained for these procedures, including risks of bleeding and perforation. Of note, I did advise her to stop her omeprazole since clearly based on her anatomy she does not make any acid I don't think she needs to stay on that in regard to the symptoms of reflux. I did advise her to try some other things such as TUMS or liquid antacids to see if that'll give her any symptomatic relief from what I suspect is some bile-induced symptoms. Tripp was comfortable with this plan. Thank [...] keep you advised of her progress. 04/24/2025 Gastroesophageal reflux disease, unspecified whether esophagitis [...] to keep you advised of her progress. 12/14/2024 Other hemorrhoids (ICD-10 - K64.8) 10/02/2024 Esophageal diverticulum (ICD-10 - Q39.6) Overall, Tripp appears well from a clinical standpoint. Her weight is quite stable. I did review the findings on her upper endoscopy in January of 2022. This did not reveal any abnormalities as had been suggested on her previous barium swallow in regard to her dysphagia and possible esophageal diverticulum. At that time, as well as currently, I do feel that a lot of her upper GI complaints are in relation to all her previous gastric surgeries including the gastric bypasses and hiatal hernia repair. I have recommended a repeat barium swallow with a barium tablet to reassess things. She is leaving for [place] next week for 2 months but hopefully we can get the x-ray done before that. I will also plan to schedule her for an upper endoscopy with possible dilation after she returns in November. She'll also have a colonoscopy for screening purposes as she reports her last exam was over 10 years ago. We did review the rationale for that in regard to colon cancer prevention. The procedures will be done with monitored anesthesia care. Full consent is obtained for these procedures, including risks of bleeding and perforation. Of note, I did advise her to stop her omeprazole since clearly based on her anatomy she does not make any acid I don't think she needs to stay on that in regard to the symptoms of reflux. I did advise her to try some other things such as TUMS or liquid antacids to see if that'll give her any symptomatic relief from what I suspect is some bile-induced symptoms. Tripp was comfortable with this plan. Thank [...] to keep you advised of her progress. 12/14/2024 Gastroesophageal reflux disease (ICD-10 - K21.9) 10/02/2024 Family history of colon cancer (ICD-10 - Z80.0) Overall, Tripp appears well from a clinical standpoint. Her weight is quite stable. I did review the findings on her upper endoscopy in January of 2022. This did not reveal any abnormalities as had been suggested on her previous barium swallow in regard to her dysphagia and possible esophageal diverticulum. At that time, as well as currently, I do feel that a lot of her upper GI complaints are in relation to all her previous gastric surgeries including the gastric bypasses and hiatal hernia repair. I have recommended a repeat barium swallow with a barium tablet to reassess things. She is leaving for [place] next week for 2 months but hopefully we can get the x-ray done before that. I will also plan to schedule her for an upper endoscopy with possible dilation after she returns in November. She'll also have a colonoscopy for screening purposes as she reports her last exam was over 10 years ago. We did review the rationale for that in regard to colon cancer prevention. The procedures will be done with monitored anesthesia care. Full consent is obtained for these procedures, including risks of bleeding and perforation. Of note, I did advise her to stop her omeprazole since clearly based on her anatomy she does not make any acid I don't think she needs to stay on that in regard to the symptoms of reflux. I did advise her to try some other things such as TUMS or liquid antacids to see if that'll give her any symptomatic relief from what I suspect is some bile-induced symptoms. Tripp was comfortable with this plan. Thank [...] to keep you advised of her progress. 12/14/2024 Dysphagia (ICD-10 - R13.10) 10/02/2024 Colon cancer screening (ICD-10 - Z12.11) Overall, Tripp appears well from a clinical standpoint. Her weight is quite stable. I did review the findings on her upper endoscopy in January of 2022. This did not reveal any abnormalities as had been suggested on her previous barium swallow in regard to her dysphagia and possible esophageal diverticulum. At that time, as well as currently, I do feel that a lot of her upper GI complaints are in relation to all her previous gastric surgeries including the gastric bypasses and hiatal hernia repair. I have recommended a repeat barium swallow with a barium tablet to reassess things. She is leaving for [place] next week for 2 months but hopefully we can get the x-ray done before that. I will also plan to schedule her for an upper endoscopy with possible dilation after she returns in November. She'll also have a colonoscopy for screening purposes as she reports her last exam was over 10 years ago. We did review the rationale for that in regard to colon cancer prevention. The procedures will be done with monitored anesthesia care. Full consent is obtained for these procedures, including risks of bleeding and perforation. Of note, I did advise her to stop her omeprazole since clearly based on her anatomy she does not make any acid I don't think she needs to stay on that in regard to the symptoms of reflux. I did advise her to try some other things such as TUMS or liquid antacids to see if that'll give her any symptomatic relief from what I suspect is some bile-induced symptoms. Tripp was comfortable with this plan. Thank [...] advised of her progress. Plan Of Treatment Pending Test Test Name Order Date COLONOSCOPY 04/24/2025 XR BARIUM SWALLOW-ESOPHAGUS 10/02/2024 Future Test Test Name Order Date UPPER GI ENDOSCOPY BALLOOON DILATION OF ESOPH 02/18/2022 UPPER GI ENDOSCOPY BALLOOON DILATION OF ESOPH 10/02/2024 COLONOSCOPY 10/02/2024 Next Appt Details Provider Name:Sebastián Jorge , 10/04/2025 12:30:00 PM, [address] [place] [address] , [place], [place], [id number], Insurance Providers Payer Name Payer Address Payer Phone Subscriber Number Group Number Insured Name Patient Relationship to Insured Coverage Start Date Coverage End Date [facility] [address] Attn Claims MICHAEL Mccallum [id number] TRIPP GUZMÁN Self - patient is the insured Medical (General) History Medical History History ICD Code Sleep apnea--not using CPAP Denies AR,DM,CVA,renal disease GERD Asthma- neubulizer Back pain Describes a negative colonoscopy > 10 ye ars ago Anxiety/Depression Hypothyroidism Upper endoscopy in January of 2022--this revealed a very small gastric remnant with anatomy consistent with her previous gastric bypass, as well as a small hiatal hernia. There was no evidence of any esophagitis, Tinajero's esophagus, esophageal stricture, esophageal diverticulum as had been suggested on the previous barium swallow, peptic ulcer disease, nor any abnormalities at her gastric bypass anastomosis EGD 11/2024 mild changes of reflux, small gastric remnant, normal anastomosis Colonoscopy 11/2024 poor prep Surgical History Surgery Date(Month/Year) shoulder surgery Left knee replacement at [facility] 2022 [facility] Right foot Nerve stimulator in back Rotator cuff-right CARPAL TUNNEL REPAIR-left HYSTERECTOMY BACK SURGERY CERVICAL DISC SURGERY GASTRIC BYPASS SURGERY [address] Dr. Resendez and then a revision in approx 2016 at [facility] HIATAL [facility]ERNIA-12/[address] Jarrell
== END 2025-09-23 15:18 | disposition home or self-care (01) ==
LOC: HO.HUSH 14:30
PROVIDERS: PCP Internal Medicine Geriatric Medicine; Visit Provider Nurse Practitioner Family
DX: N20.0 Calculus of kidney (principal); N39.0 Urinary tract infection, site not specified; N39.46 Mixed incontinence; Z13.9 Encounter for screening, unspecified
CPT/HCPCS: 99203

== ENCOUNTER 2025-09-23 14:30 | Outpatient (REF) | payer OTHER, SELFPAY | END 2025-09-23 14:31 | disposition home or self-care (01) | LOC: HO.LNP 14:30 | PROVIDERS: PCP Internal Medicine Geriatric Medicine; Visit Provider Nurse Practitioner Family | DX: N20.0 Calculus of kidney (principal); N39.0 Urinary tract infection, site not specified; N39.46 Mixed incontinence | CPT/HCPCS: 51798; 81003; 82365; 88300; 99202 ==

== ENCOUNTER 2025-09-24 13:18 | Outpatient (AMB) | payer OTHER, SELFPAY ==
[2025-09-24 13:26] VITALS: BP 110/62; PULSE 68; O2SAT 97; BMI 31.8
--- NOTE | 2025-09-24 13:26 | MHC.OFFVIS ---
Vital Signs 09/24/25 13:26 Height 4 ft 10 in Weight 152 lb BMI 31.8 BP 110/62 Blood Pressure Location Rt brachial Position Sitting Pulse 68 Pulse Source Pulse Oximeter Pulse Oximetry (%) 97 Oxygen Delivery Method Room Air Intake Visit Reasons: Asthma Electrical Manager Required: Yes Electrical Manager Name: Belkis Mills Meaghan Information Interpreted: non-clinical & clinical Allergies vancomycin (VANCOMYCIN) Allergy (Intermediate, Verified 09/24/25 13:31) FACIAL FLUSHING/ITCHING trazodone (TRAZODONE) Allergy (Unknown, Verified 09/24/25 13:31) PER H&P HPI HPI Asthma: Details: 70-year-old lady, former minimal (5 pack years total) smoker in her 20s, with underlying history of obesity status post gastric bypass, also followed by Cardiology service for dyspnea followed for moderate to severe persistent asthma and environmental allergies. She has been using budesonide, arformoterol, and albuterol MDI/nebs with good control of pulmonary component of her symptoms. She does complain of some dyspnea on exertion, orthopnea, and lower extremity edema. She denies recent exacerbations. [facility] Medical History (Updated 09/23/25 @ 21:[address] [facility] [place]) Sleep apnea Hernia of enterostomy Anemia Environmental allergies Moderate persistent asthma Dysphagia GERD (gastroesophageal reflux disease) Malabsorption due to intolerance, not elsewhere classified LUQ abdominal tenderness IBS (irritable bowel syndrome) Herniated disc Anxiety Depression Surgical History (Updated 07/11/25 @ 14:59 by Emily Ochoa RN) History of total left knee replacement (TKR) History of endoscopy Hx of hernia repair H/O neck surgery Hx of hammer toe correction H/O colonoscopy History of bunionectomy S/P rotator cuff repair History of Rebecca-en-Y gastric bypass History of back surgery H/O laminectomy History of bladder surgery Hx laparoscopic cholecystectomy History of partial hysterectomy Family History Father Alcohol abuse Cancer Diabetes Mother Colon cancer Liver cancer Diabetes Brother Cancer Social History Household Members: Family Household Members Other:: grandchildren and daughter Housing: House Alcohol intake: current Alcohol intake frequency: does not drink Patient Tobacco Use Status: Former Tobacco user Years Smoked: 5 +/- service: No Current occupational status: retired Current occupation: Right Handed Review of Systems Const Denies daytime sleepiness, Denies excessive sweating, Denies fatigue, Denies fever(s), Denies lethargy, Denies malaise, Denies night sweats, Denies snoring and Denies weight loss Eyes Denies blurry vision and Denies itchy eyes ENT Denies nasal congestion, Denies post nasal drip, Denies sinus pain, Denies sinus pressure and Denies other ( Thrush) Card Denies chest pain, Reports pedal edema, Denies dyspnea, Reports dyspnea on exertion, Reports orthopnea and Denies paroxysmal nocturnal dyspnea Resp Denies cough, Denies hemoptysis, Denies excessive phlegm production, Denies dyspnea, Reports dyspnea on exertion, Denies snoring and Denies wheezing GI Denies abdominal pain and Denies heartburn Musc Denies myalgias, Denies arthralgias and Denies joint swelling Skin/Breast Denies rash Neuro Denies memory loss and Denies seizure-like activity Psych Denies abnormal sleep pattern, Denies anxiety and Denies memory loss Endo Denies excessive sweating, Denies fatigue and Denies heat intolerance Sanju/Lymph Denies easy bruising Aller/Immun Denies itchy eyes, Denies seasonal rhinorrhea and Denies wheezing Physical Exam Vital Signs: Last Vital Signs Pulse 68 09/24/25 13:26 BP 110/62 09/24/25 13:26 Pulse Ox 97 09/24/25 13:26 Oxygen Delivery Method Room Air 09/24/25 13:26 BMI result Body Mass Index 31.8 Const General: no acute distress and alert Nutritional Appearance: not obese Orientation/consciousness: Other orientation findings ( oriented) HEENT Head: Yes atraumatic Eyes General: appearance normal, both eyes and all related structures Sclerae: sclerae normal EOM: EOMs intact bilaterally Neck Neck: Yes supple Lymphatic: no lymphadenopathy noted Resp Effort & Inspection: normal respiratory effort and no use of accessory muscles Auscultation: clear to auscultation bilaterally Cardio Rate: regular rate Rhythm: regular rhythm Heart sounds: no gallops, no murmurs and no rubs Skin General skin exam: other ( warm) Extrem General: No clubbing, No cyanosis and Yes edema (1+ bilateral) Assessment & Plan Assessment & Plan (1) Moderate persistent asthma: Code(s): J45.40 - Moderate persistent asthma, uncomplicated Category: Medical Plan: Well controlled on current regimen of nebulized arformoterol, budesonide, and duo nebs. Continue current regimen. (2) Orthopnea: Code(s): R06.01 - Orthopnea Category: Medical Plan: Now with worsening orthopnea, dyspnea on exertion, and lower extremity edema, will start on Bumex 1 mg daily. Medications: New bumetanide 1 mg PO DAILY 30 tabs 6RF Discontinued furosemide (Lasix) Discontinued Reason: Doctor's Order 40 mg PO DAILY 30 tabs 3RF Coding Level of Care Code Est Pt Level 4 (79946) Diagnoses Moderate persistent asthma J45.40 Orthopnea R06.01
== END 2025-09-24 13:50 | disposition home or self-care (01) ==
LOC: HO.HPS 13:18
PROVIDERS: PCP Internal Medicine Geriatric Medicine; Referring Provider Internal Medicine Geriatric Medicine; Visit Provider Internal Medicine Pulmonary Disease
DX: J45.40 Moderate persistent asthma, uncomplicated (principal); R06.01 Orthopnea
CPT/HCPCS: 99214

== ENCOUNTER → 2025-09-24 13:18 | Outpatient (BNVA) | payer OTHER, SELFPAY | PROVIDERS: PCP Internal Medicine Geriatric Medicine; Referring Provider Internal Medicine Geriatric Medicine; Visit Provider Internal Medicine Pulmonary Disease | DX: J45.40 Moderate persistent asthma, uncomplicated (principal); R06.01 Orthopnea | CPT/HCPCS: 99212 ==

== ENCOUNTER 2025-10-04 10:31 | Day surgery (SDC) | payer OTHER, SELFPAY ==
--- OUTSIDE RECORDS SUMMARY | 2025-06-19 14:33 | XMS_ITS | Encounter Summary ---
Author Organization [facility] Address [address] [place] [address] Care Team Providers Care Assistant Women'S Basketball Coach Name Role Phone Name, Stoney BELTRAN Primary Care Provider Unavailabl lucie [facility], Pcp Primary Care Provider UnavailMiki Velázquez MD Primary Care Provider [phone] [facility], Pcp Primary Care Provider Unavailabl e Encounter Details Date Type Department Care Team Description 11/09/2011 Cardiology Procedure Cardiology - [place] [address] [place] [address] [id number] Echo, Cardiology [address] [place] [address] [id number] Social History Tobacco Use Types Packs/Day Years Used Date Smoking Tobacco: Former Cigarettes 2 Comments:quit 1982 Alcohol Use Standard Drinks/Week Comments Yes 0 (1 standard drink = 0.6 oz pur e alcohol) Rare Sex Assigned at Date Recorded Not on file documented as of this encounter Procedure Notes * Bryce Marmolejo MD - 11/09/2011 11:45 AM EST Patient Name: [facility] Cardiology Department Date of Service: HOLTER MONITOR DATE OF : 1955 DATE OF HOOKUP: 10/29/2011. Total duration: 24 hours. REQUESTING PHYSICIAN: Mark Pritchett M.D. REASON FOR TEST: Palpitations and cardiomyopathy. INTERPRETATION: There is normal sinus rhythm. Average heart rate of 73 beats per minute. Minimal heart rate 45 beats per minute in sinus bradycardia. Maximal heart rate is 136 beats per minute, sinustachycardia. There were no pauses greater than 2 seconds noticed. There were a total of no ventricular ectopics. There were a total of 40 most likely supraventricular ectopics accounting for rare supraventricular ectopics. The patient reported multiple events of palpitations, all of which were sinus rhythm. CONCLUSION: Holter report is remarkable for: 1. Baseline normal sinus rhythm with no pauses. 2. Rare supraventricular ectopics. 3. No significant tachy or kannan arrhythmias. 4. Patient reported events correlate with sinus rhythm. Bryce Marmolejo M.D. cc: Mark Pritchett M.D. / documented in this encounter Plan of Treatment Not on file documented as of this encounter Visit Diagnoses Not on filedocumented in this encounter Care Teams Assistant Women'S Basketball Coach Relationship Specialty Start Date End Date Name, MD Stoney PCP - General 01/08/09 12/21/15 [facility], Pcp PCP - General Internal Medicine 12/22/15 12/24/15 Miki Estrada MD [address] [place] [address] PCP - General Internal Medicine 12/25/15 08/21/17 [facility] PCP - General Internal Medicine 08/22/17 documented as of this encounter
--- OUTSIDE RECORDS SUMMARY | 2025-06-19 14:33 | XMS_ITS | Clinical Summary ---
Author Organization [facility] Address [address] [address] Phone Care Team Providers Care Airline Captain Name Role Phone Name, Stoney BELTRAN Primary Care Provider [phone] Allergies No known active allergies Medications predniSONE (DELTASONE) 50 MG tablet Take 1 tablet (50 mg total) by mouth daily with breakfast for 4 days. 4 tablet 5 06/05/20 25 Encounters Date Type Department Care Team Description 05/31/2025 11:30 AM EDT - 05/31/2025 3:39 PM EDT Emergency [facility] [address] [place] [address] Discharge Disposition: Home or Self Care from Last 3 Months Social History Tobacco Use Types Packs/Day Years Used Date Smoking Tobacco: Unknown Smokeless Tobacco: Never Alcohol Use Standard Drinks/Week Comments Not Currently 0 (1 standard drink = 0.6 oz pur e alcohol) Education Answer Date Recorded Are you interested in more education? Not on noelle e 03/25/2023 Are you concerned about learning? Not on file 03/25/2023 No 03/25/2023 No 03/25/2023 Food Answer Date Recorded Within the past 6 months we worried whether our food would run out before we got money to buy more. I choose not to answer 05/31/2025 Within the past 6 months the food we bought just didn't last and we didn't have enough money to get more. I choose not to answer 05/31/2025 Residential Stability Answer Date Recor ded What is your housing situation today? I choose n ot to answer 05/31/2025 How many times have you move d in the past 12 months? I choose not to answer 05/31/2025 Paying for Meds Answer Date Recorded Do you have trouble paying for medicines? I gerardo roper not to answer 05/31/2025 Paying Utility Bills Answer Date Record ed Do you have trouble paying y our heating or electricity bill? I choose not to answer 05/31/2025 Transportation Answer Date Recorded Has the lack of transportati on kept you from medical appointments or from getting medications? I choose not to answer 05/31/2025 Digital Access Answer Date Recorded No 05/31/2025 No 05/31/2025 Do you have reliable internet access at home? I choose not to answer 05/31/2025 Do you have a device (e.g., phone, tablet, computer) with a working camera? I choose not to answer 05/31/2025 Intimate Partner Violence Answer Date R ecorded Are you denied basic needs s uch as food, clothing, or medical care? No 05/31/2025 In the past 12 months have y ou been in a relationship with a person who hurts, threatens, or tries to control you? No 05/31/2025 Are you denied basic needs s uch as food, clothing, or medical care? No 05/31/2025 In the past 12 months have y ou been in a relationship with a person who hurts, threatens, or tries to control you? No 05/31/2025 Comments Unknown Sex and Gender Information Value Date Recorded Sex Assigned at Female 07/28/2021 10:11 AM EDT Legal Sex Female 9:53 PM EDT Gender Identity Female 05/31/2025 11:27 AM EDT Sexual Orientation Not on file Last Filed Vital Signs Vital Sign Reading Time Taken Comments Blood Pressure 113/97 05/31/2025 3:14 PM EDT Pulse 85 05/31/2025 3:14 PM EDT Temperature 36.9 C (98.4 F) 05/31/2025 3:14 PM EDT Respiratory Rate 20 05/31/2025 3:14 PM EDT Oxygen Saturation 100% 05/31/2025 3:14 PM EDT Inhaled Oxygen Concentration - - Weight 68 kg (150 lb) 05/31/2025 11:24 AM EDT Height 150 cm (4' 11.06 ) 05/31/2025 11:24 AM ED T Body Mass Index 30.24 05/31/2025 11:24 AM EDT Plan of Treatment Health Maintenance Due Date Last Done Comments LIPID PANEL 1955 DEPRESSION SCREENING 1969 SMOKING Hx and SMOKELESS TOBACCO SCREENING 1970 HEPATITIS C SCREENING 1975 COLOGUARD 2002 COLONOSCOPY 2002 COLORECTAL CANCER SCREENING 2002 FIT TEST 2002 FOBT 2002 SIGMOIDOSCOPY 2002 VIRTUAL COLONOSCOPY 2002 ZOSTER VACCINES (1 of 2) 2007 PNEUMOCOCCAL VACCINES (50+ years) (2 of 2 - PCV) 09/19/2018 09/19/2017, 12/10/2006 OSTEOPOROSIS SCREENING INITI AL (ONE-TIME) 2022 COVID-19 VACCINE (3 - 2023-2 5 season) 2024 09/01/2021, 08/11/2021 MAMMOGRAM 09/14/2024 09/14/2022, 09/10/2022, 02/15/2020 Adult Td,Tdap Booster 12/20/2026 12/20/2016 SCREENING FOR DIABETES 05/31/2028 05/31/2025 RSV VACCINE (1 - 1-dose 75+ series) 2032 HEPATITIS A VACCINES Aged Out No long er eligible based on patient's age to complete this topic HIB VACCINES Aged Out No longer eligi ble based on patient's age to complete this topic MENINGOCOCCAL VACCINES (ACWY) Aged Out No longer eligible based on patient's age to complete this topic MENINGOCOCCAL VACCINES (B) Aged Out N o longer eligible based on patient's age to complete this topic Medical Devices Not on file Procedures Procedure Name Priority Date/Time Associated Diagnosis Comments COVID PANDEMIC RESPIRATORY VIRAL ORDER (PRO) STAT 05/31/2025 1:53 PM EDT BASIC METABOLIC PANEL STAT 05/31/2025 1:48 PM EDT CBC AND DIFFERENTIAL STAT 05/31/2025 1:48 PM EDT XR CHEST PA AND LATERAL 2 VIEWS STAT 05/31/2025 11:43 AM EDT ECG 12-LEAD STAT 05/31/2025 11:27 AM EDT from Last 3 Months Results * COVID Pandemic Respiratory Viral Order (PRO) (05/31/2025 1:53 PM EDT) Test Ordered Rapid COVID, Flu has been ordered [facility] Specimen Source/Descriptio n NASOPHARYNGEAL SWAB [facility] Influenza A PCR Not Detected Not Detected [facility] Influenza B PCR Not Detected Not Detected [facility] SARS-CoV 2 (COVID-19) PCR Not Detected Not Detected [facility] Comment: SARS-CoV-2 not detected Negative results do not preclude SARS-CoV-2 infection and should not be used as the sole basis for patient management decisions. Negative results must be combined with clinical observations, patient history, and epidemiological information. Other (Nasopharyngeal swab) 05/31/2025 1:53 PM EDT 05/31/2025 2:06 PM EDT Charlie Wilcox PA-C BODY FLUIDS AND STOOLS ORDERAB LES Final Result Performing Organization Address City/State/[facility] Co de Phone Number [address] [address] * (ABNORMAL) CBC and differential (05/31/2025 1:48 PM EDT) WBC 6.65 4.00 - 11.00 K/uL [facility] RBC 4.61 4.00 - 5.20 M/uL [facility] HGB 12.5 12.0 - 16.0 g/dL [facility] HCT 40.3 36.0 - 46.0 % [facility] PLT 250 150 - 450 K/uL [facility] MCV 87.4 80.0 - 100.0 fL [facility] MCH 27.1 27.0 - 31.0 pg [facility] MCHC 31.0(L) 32.0 - 36.0 g/dL [facility] RDW 13.6 11.5 - 14.5 % [facility] MPV 10.5 8.4 - 12.0 fL [facility] NRBC 0.00 0.00 /100 WBCs [facility] ABSOLUTE NRBC 0.00 0.00 K/uL [facility] DIFF METHOD Auto [facility] NEUTS 60.7 48.0 - 76.0 % [facility] LYMPHS 28.9 18.0 - 41.0 % [facility] MONOS 8.1 4.0 - 11.0 % [facility] EOS 1.4 0.0 - 5.0 % [facility] BASOS 0.3 0.0 - 1.5 % [facility] Granulocytes, immature (%) 0.6 0.0 - 0.9 % [facility] ABSOLUTE NEUTS 4.04 1.92 - 7.60 K/uL [facility] ABSOLUTE LYMPHS 1.92 0.72 - 4.10 K/uL [facility] ABSOLUTE MONOS 0.54 0.16 - 1.10 K/uL [facility] ABSOLUTE EOS 0.09 0.00 - 0.50 K/uL [facility] ABSOLUTE BASOS 0.02 0.00 - 0.15 K/uL [facility] Granulocytes, immature 0.04 0.00 - 0.09 K/uL [facility] Blood 05/31/2025 1:48 PM EDT 05/31/2025 1:52 PM EDT us Charlie Wilcox PA-C LAB BLOOD ORDERABLES Final Res ult [address] [address] * Basic metabolic panel (05/31/2025 1:48 PM EDT) SODIUM 141 133 - 146 mmol/L [facility] CHLORIDE 104 96 - 108 mmol/L [facility] POTASSIUM 4.4 3.3 - 5.1 mmol/L [facility] CO2 28 21 - 35 mmol/L [facility] BUN 8 6 - 19 mg/dL [facility] CREATININE 0.50 0.5 - 1.5 mg/dL [facility] GLUCOSE 92 70 - 99 mg/dL [facility] CALCIUM 9.3 8.4 - 10.3 mg/dL [facility] EGFR 102 >59 mL/min/1.7 3m2 [facility] Comment:Estimated glomerular filtration rate calculated using the CKD-EPI refit equation. ANION GAP 13 10 - 20 mmol/L [facility] Blood 05/31/2025 1:48 PM EDT 05/31/2025 1:52 PM EDT Charlie Wilcox PA-C LAB BLOOD ORDERABLES Final Res ult [facility] [address] [place] [address] * XR CHEST PA AND LATERAL 2 VIEWS (05/31/2025 11:43 AM EDT) Anatomical Region Laterality Modality Chest Computed Radiogr aphy 05/31/2025 11:4 5 AM EDT Impressions 05/31/2025 11:46 AM EDT No acute abnormality. Narrative 05/31/2025 11:46 AM EDT XR CHEST PA AND LATERAL 2 VIEWS Referring clinician's provided indication for this examination in [facility]: Dyspnea (Shortness of Breath); pneumonia not improving COMPARISON: None FINDINGS: Devices/Tubes/Lines: Surgical changes of the cervical spine. There are [address] in [address] overlying the cervical and thoracic spine. Lungs: No airspace consolidation. Pleura: No pleural effusion or pneumothorax. Heart/Mediastinum: Normal heart and mediastinum. Bones/Soft Tissues: Surgical changes of the right shoulder. Degenerative changes of the shoulders and spine. No acute osseous abnormality. Procedure Note Radha Aguilera MD, PhD - 05/31/2025 XR CHEST PA AND LATERAL 2 VIEWS Referring clinician's provided indication for this examination in [facility]:Dyspnea (Shortness of Breath); pneumonia not improving COMPARISON: None FINDINGS: Devices/Tubes/Lines: Surgical changes of the cervical spine. There are 2spinal stimulator leads in place overlying the cervical and thoracicspine. Lungs: No airspace consolidation. Pleura: No pleural effusion or pneumothorax. Heart/Mediastinum: Normal heart and mediastinum. Bones/Soft Tissues: Surgical changes of the right shoulder. Degenerativechanges of the shoulders and spine. No acute osseous abnormality. IMPRESSION: No acute abnormality. us Tone Woo MD IMG XR CHEST Fi nal Result * ECG 12-LEAD (05/31/2025 11:27 AM EDT) Ventricular Rate EKG/MIN 88 BPM [facility] Atrial Rate 88 BPM [facility] NC Interval 154 ms [facility] QRS Duration 64 ms [facility] QT Interval 358 ms [facility] QTC Interval 433 ms [facility] P [place] 8 degrees [facility] R Wave [place] 8 degrees [facility] T Wave [place] 23 degrees [facility] 05/31/2025 11:2 7 AM EDT 06/01/2025 1:48 PM EDT Narrative [facility] - 06/01/2025 1:49 PM EDT Normal sinus rhythm Normal ECG No previous ECGs available Confirmed by Ambrocio GRANT ([id number]) on 06/01/2025 1:48:59 PM us Tone Woo MD ECG ORDERABLES Fi nal Result [facility] from Last 3 Months Insurance [facility] SCO MEDICARE REPLACEMENT MEDICARE REPLACEMENT MEDICARE REPLACEMENT MEDICARE REPLACEMENT MEDICARE REPLACEMENT MEDICARE REPLACEMENT Care Teams Airline Captain Relationship Specialty Start Date End Date Name, MD Stoney [address] [place] [address] PCP - General Geriatric Psychiatry 07/28/21 Additional Source Comments The information contained in this document represents components of the legal health record. It is not the complete legal health record.[facility]
[2025-07-11 15:00] VITALS: BMI 32.5
--- NOTE | 2025-10-02 11:36 | HO.ANESPROP2 ---
Documented by User: Chhaya Velasquez NP 10/03/25 10:07 HPI - Anesthesia Eval Consult details Narrative: 70 yr old female for colonoscopy s/p upper EGD, colonoscopy with TIVA 11/2024 Moderate persistent asthma: [place] [facility] [place], at 08/2025 visit provider noted, Well controlled on current regimen of nebulized arformoterol, budesonide, and duo nebs. Continue current regimen. Pt reported worsening orthopnea, dyspnea on exertion, and lower extremity edema, will start on Bumex 1 mg daily. Also had cardiac testing update, see below. Chest pain: Saw [facility] [place] in [place], prn follow up only; Nuclear stress test done 06/15/22 shows normal myocardial perfusion imaging, EF 57%. She continues to report chest discomfort and underwent a CTA of coronaries on 07/21/22 showing left main normal, LAD proximal with calcification less than 25% stenosis, left circumflex and RCA normal. Now following Dr. Giles, last visit 05/2025, echo updated see below, stress test done 06/2025, neg for ischemia, no evidence of fixed or reversible perfusion deficits, see below. [facility] Active Problems Active Problems: All Active Problems (Updated 09/23/25 @ 21:[address] [facility] Mixed incontinence urge and stress (Acute) Recurrent urinary tract infection (Acute) Nephrolithiasis (Acute) Orthopnea (Acute) Exertional angina (Acute) Chest discomfort (Acute) Rotator cuff impingement syndrome of left shoulder (Acute) Trochanteric bursitis, left hip (Acute) Chronic idiopathic constipation (Acute) Varicose veins of right lower extremity with inflammation (Acute) Obesity (Acute) Moderate persistent asthma (Acute) IBS (irritable bowel syndrome) (Acute) GERD (gastroesophageal reflux disease) (Acute) Dysphagia (Acute) Anemia (Chronic) Past Medical History Medical History Sleep apnea Hernia of enterostomy Anemia Environmental allergies Moderate persistent asthma Dysphagia GERD (gastroesophageal reflux disease) Malabsorption due to intolerance, not elsewhere classified LUQ abdominal tenderness IBS (irritable bowel syndrome) Herniated disc Anxiety Depression Family History Family History Father Alcohol abuse Cancer Diabetes Mother Colon cancer Liver cancer Diabetes Brother Cancer Family history of problems with anesthesia: No Surgical History Surgical History History of total left knee replacement (TKR) History of endoscopy Hx of hernia repair H/O neck surgery Hx of hammer toe correction H/O colonoscopy History of bunionectomy S/P rotator cuff repair History of Rebecca-en-Y gastric bypass History of back surgery H/O laminectomy History of bladder surgery Hx laparoscopic cholecystectomy History of partial hysterectomy History of Problems with Anesthesia: No Social History Social History Household Members: Family Household Members Other:: grandchildren and daughter Housing: House Are you a primary health care specialist to a significant other at home: No Do you presently have visiting nurse or other home services: No Alcohol intake: current Alcohol intake frequency: does not drink Patient Tobacco Use Status: Former Tobacco user Years Smoked: 5 +/- Have you been hit, kicked, punched, or otherwise hurt by someone within the past year? If so, by whom?: No Are you DNR?: No Advance Directives: No Advance Directives Information Provided: Yes service: No Current occupational status: retired Current occupation: Right Handed Meds Allergies Allergy/AdvReac Type Severity Reaction Status Date / Time vancomycin (VANCOMYCIN) Allergy Intermediate FACIAL Verified 09/24/25 13:31 FLUSHING/ITCHING trazodone (TRAZODONE) Allergy Unknown PER H&P Verified 09/24/25 13:31 Home Medications ?Medication ?Instructions ?Recorded ?Confirmed ?Last Taken ?Type bupropion HCl 300 mg 24 hr tablet, 300 mg PO QAM 08/28/20 10/04/25 12/12/24 History extended release clonazepam 1 mg tablet 1 mg PO BID 08/28/20 10/04/25 12/13/24 History levothyroxine 25 mcg tablet 25 mcg PO DAILY 08/28/20 10/04/25 12/12/24 History melatonin 5 mg tablet 5 mg PO BEDTIME 08/28/20 10/04/25 12/13/24 History mirtazapine 30 mg tablet 30 mg PO BEDTIME 08/28/20 10/04/25 12/13/24 History tramadol 50 mg tablet 50 mg PO TID PRN Pain 08/28/20 10/04/25 12/12/24 History vitamin A 3,000 mcg (10,000 unit) 10,000 unit PO DAILY 05/05/22 10/04/25 12/12/24 History capsule calcium 600 mg (as 1 tab PO DAILY 06/24/22 10/04/25 12/12/24 History carbonate)-vitamin D3 20 mcg (800 unit) tablet acetaminophen 500 mg tablet 1,000 mg PO Q8H PRN pain 09/21/22 10/04/25 12/12/24 History cholecalciferol (vitamin D3) 50 50 mcg PO DAILY 09/21/22 10/04/25 12/12/24 History mcg (2,000 unit) tablet famotidine 20 mg tablet 20 mg PO BID 09/21/22 10/04/25 12/12/24 History ferrous sulfate 325 mg (65 mg 325 mg PO DAILY 09/21/22 10/04/25 12/12/24 History iron) tablet folic acid 1 mg tablet 1 mg PO DAILY 09/21/22 10/04/25 12/12/24 History multivitamin 1 tab PO DAILY 09/21/22 10/04/25 12/12/24 History cyanocobalamin (vitamin B-12) 1,000 mcg PO DAILY 01/18/23 10/04/25 12/12/24 History 1,000 mcg tablet omeprazole 40 mg capsule,delayed 40 mg PO DAILY 01/18/23 10/04/25 12/12/24 History release Exam Height,Weight and Vital Signs: Height 4 ft 9 in Weight 68.039 kg Pertinent Lab Results Pertinent Lab Results: Laboratory Tests 06/13/25 19:52 WBC 12.3 H RBC 5.02 Hgb 13.7 Hct 43.2 Plt Count 310 D Sodium 143 Potassium 4.0 Chloride 107 Carbon Dioxide 28 BUN 12 Creatinine 0.78 Narrative Narrative: ECHO 05/2025 Conclusions: - 1. Normal LV ejection fraction 55-60% with impaired relaxation filling pattern 2. Normal cardiac valvular Dopplers 3. Mildly dilated ascending aorta at 3.9 cm 4. Normal RV systolic pressure 5. No gross pericardial effusion EKG 05/2025 Vent. Rate : 103 BPM Atrial Rate : 103 BPM P-R Int : 164 ms QRS Dur : 56 ms QT Int : 332 ms P-R-T Axes : -29 -25 -24 degrees QTcB Int : 434 ms Sinus tachycardia Inferior infarct , age undetermined Abnormal ECG When compared with ECG of 16-Jun-2017 13:21, Vent. rate has increased by 36 bpm QRS axis Shifted left Inferior infarct is now Present Chest CTA 05/2025 Impression: 1. No evidence of acute pulmonary embolism. 2. No focal consolidation, pleural effusion or pneumothorax. 3. Additional findings as above. Nuclear Stress Test 07/18/25 Neg ECG response to pharmacologic stress test for evidence of ischemia Myocardial perfusion imaging is normal with no evidence of fixed or reversible perfusion defects Mild fixed decreased uptake involving the apical/interfoapical kitchen, most likely representing subdiaphragmatic GI attenuation artifact Normal wall thickening and wall motion. Normal LV function with resting LF EF 46%, post stress ventricular EF 57% Left ventricular size is normal. No evidence of transient ischemic dilation. Compared to previous study 03/15/24 no change. Assessment and Plan Final Anesthetic Review Family History of Problems with Anesthesia: No History of Problems with Anesthesia: No Documented by User: Sheyla Guillen MD 10/04/25 12:[facility] Past Medical History Medical History Sleep apnea Hernia of enterostomy Anemia Environmental allergies Moderate persistent asthma Dysphagia GERD (gastroesophageal reflux disease) Malabsorption due to intolerance, not elsewhere classified LUQ abdominal tenderness IBS (irritable bowel syndrome) Herniated disc Anxiety Depression Family History Family History Father Alcohol abuse Cancer Diabetes Mother Colon cancer Liver cancer Diabetes Brother Cancer Surgical History Surgical History History of total left knee replacement (TKR) History of endoscopy Hx of hernia repair H/O neck surgery Hx of hammer toe correction H/O colonoscopy History of bunionectomy S/P rotator cuff repair History of Rebecca-en-Y gastric bypass History of back surgery H/O laminectomy History of bladder surgery Hx laparoscopic cholecystectomy History of partial hysterectomy Social History Social History Household Members: Family Household Members Other:: grandchildren and daughter Housing: House Are you a primary health care specialist to a significant other at home: No Do you presently have visiting nurse or other home services: No Alcohol intake: current Alcohol intake frequency: does not drink Patient Tobacco Use Status: Former Tobacco user Years Smoked: 5 +/- Have you been hit, kicked, punched, or otherwise hurt by someone within the past year? If so, by whom?: No Are you DNR?: No Advance Directives: No Advance Directives Information Provided: Yes service: No Current occupational status: retired Current occupation: Right Handed Meds Allergies Allergy/AdvReac Type Severity Reaction Status Date / Time vancomycin (VANCOMYCIN) Allergy Intermediate FACIAL Verified 09/24/25 13:31 FLUSHING/ITCHING trazodone (TRAZODONE) Allergy Unknown PER H&P Verified 09/24/25 13:31 Home Medications ?Medication ?Instructions ?Recorded ?Confirmed ?Last Taken ?Type bupropion HCl 300 mg 24 hr tablet, 300 mg PO QAM 08/28/20 10/04/25 12/12/24 History extended release clonazepam 1 mg tablet 1 mg PO BID 08/28/20 10/04/25 12/13/24 History levothyroxine 25 mcg tablet 25 mcg PO DAILY 08/28/20 10/04/25 12/12/24 History melatonin 5 mg tablet 5 mg PO BEDTIME 08/28/20 10/04/25 12/13/24 History mirtazapine 30 mg tablet 30 mg PO BEDTIME 08/28/20 10/04/25 12/13/24 History tramadol 50 mg tablet 50 mg PO TID PRN Pain 08/28/20 10/04/25 12/12/24 History vitamin A 3,000 mcg (10,000 unit) 10,000 unit PO DAILY 05/05/22 10/04/25 12/12/24 History capsule calcium 600 mg (as 1 tab PO DAILY 06/24/22 10/04/25 12/12/24 History carbonate)-vitamin D3 20 mcg (800 unit) tablet acetaminophen 500 mg tablet 1,000 mg PO Q8H PRN pain 09/21/22 10/04/25 12/12/24 History cholecalciferol (vitamin D3) 50 50 mcg PO DAILY 09/21/22 10/04/25 12/12/24 History mcg (2,000 unit) tablet famotidine 20 mg tablet 20 mg PO BID 09/21/22 10/04/25 12/12/24 History ferrous sulfate 325 mg (65 mg 325 mg PO DAILY 09/21/22 10/04/25 12/12/24 History iron) tablet folic acid 1 mg tablet 1 mg PO DAILY 09/21/22 10/04/25 12/12/24 History multivitamin 1 tab PO DAILY 09/21/22 10/04/25 12/12/24 History cyanocobalamin (vitamin B-12) 1,000 mcg PO DAILY 01/18/23 10/04/25 12/12/24 History 1,000 mcg tablet omeprazole 40 mg capsule,delayed 40 mg PO DAILY 01/18/23 10/04/25 12/12/24 History release Exam Airway Mallampati Class: II TM Dist: <=3cm Neck ROM: Full Denture: Lower Partial: Upper Heart: rrr Lungs: cta Assessment and Plan Assessment Anesthesia Assessment: Anesthesia Plan Discussed and Chart Reviewed Final Anesthetic Review NPO: Yes ASA Class: III Final Preanesthetic Review: No Changes in Pt Med Stat, Meds/Allgs Chart Reviewed, Consent Obtained/Reviewed and Anes Risks/Benef Reviewed Patient Risk: Intermediate Procedure Risk: Low Anesthetic Plan Anesthetic Plan: MAC: Disposition: Standard PACU
[2025-10-04 11:53] VITALS: BMI 32.8
[2025-10-04] MEDS: Lactated Ringers 1,000 ML 100 ML IVCONT (11:55)
[2025-10-04 12:00] VITALS: BP 144/64; PULSE 67; RESP 18; TEMP 36.6; O2SAT 98
[2025-10-04 14:26] VITALS: BP 98/54; PULSE 74; RESP 16; TEMP 36.6; O2SAT 99
--- NOTE | 2025-10-04 14:28 | P.BOP_ITS ---
Brief Operative Note Date of Service: 10/04/25 Pre-op diagnosis: Screening Post-op diagnosis: other (Diverticulosis) Procedure: Colonoscopy to the cecum and TI Surgeon: Sebastián Jorge MD Anesthesia: MAC Was an Construction Engineer used for this Procedure?: No Estimated blood loss (mL): 0 Pathology: none sent Condition: stable Disposition: PACU
[2025-10-04 14:41] VITALS: BP 134/48; PULSE 75; RESP 16; TEMP 36.6; O2SAT 98
--- NOTE | 2025-10-05 00:15 | OP_ITS ---
DATE OF SERVICE: 10/04/2025 SURGEON: Sebastián Jorge MD INDICATIONS: The patient presents for evaluation of colorectal cancer screening. Full consent has been obtained from her for this, including risks of bleeding and perforation. PREOPERATIVE DIAGNOSIS: Colorectal cancer screening. POSTOPERATIVE DIAGNOSIS: PROCEDURE PERFORMED: Colonoscopy to the cecum and terminal ileum. ESTIMATED BLOOD LOSS: COMPLICATIONS: ANESTHESIA: Medication used, monitored anesthesia care. ASSISTANTS: SPECIMENS: POSTOPERATIVE DIAGNOSES: Colorectal cancer screening, mild diverticulosis, and internal hemorrhoids. DESCRIPTION OF PROCEDURE: The patient was placed in the left lateral decubitus position. The digital rectal exam revealed no abnormalities. The Olympus video pediatric colonoscope was entered into the rectum and advanced easily to the cecum. Once in the cecum, I did identify normal-appearing cecal pouch with appendiceal orifice and a normal-appearing ileocecal valve. The terminal ileum was cannulated and appeared normal. The scope was withdrawn back in the colon. The entire cecum and ileocecal valve appeared normal. The scope was slowly withdrawn assessing all mucosal surfaces carefully. Preparation was excellent after her 2 day prep. I did not visualize any sign of polyps, colitis, nor angiodysplasia. There was a mild amount of sigmoid diverticulosis. In the rectum, scope was retroflexed visualizing internal hemorrhoids, but no other pathology. The rectal mucosa appeared normal. The scope was straightened and withdrawn from the patient. She tolerated the procedure well and was returned to the recovery area in stable condition. IMPRESSION: 1. Diverticulosis. 2. Internal hemorrhoids. PLAN: Given her family history of colorectal cancer and polyps, I would recommend a repeat colonoscopy in 5 years for further screening. She will otherwise see me on a p.r.n. basis. MD LYLE Laura/VANNESSA / [id number]
== END 2025-10-04 14:53 | disposition home or self-care (01) ==
PROVIDERS: PCP Internal Medicine Geriatric Medicine; Visit Provider Internal Medicine
PROC: 0DJD8ZZ Inspection of Lower Intestinal Tract, Via Natural or Artificial Opening Endoscopic (ICD-10-PCS; CPT 45378; principal; 2025-10-04 12:30)
DX: Z12.11 Encounter for screening for malignant neoplasm of colon (principal); Z80.0 Family history of malignant neoplasm of digestive organs; R15.1 Fecal smearing; K59.00 Constipation, unspecified; K64.8 Other hemorrhoids; K57.30 Diverticulosis of large intestine without perforation or abscess without bleeding
CPT/HCPCS: G0105; J2704